=== PATIENT | male | born 1940 | race Caucasian/White ===

== ENCOUNTER 2017-03-01 08:54 | Emergency (ER) | payer OTHER ==
[~2017-03-01] VITALS: Ht 177.8 cm; Wt 83.9 kg
[~2017-03-01 08:54] MED LIST: AUGMENTIN 875875 M1 PO; CRESTOR5 MG; LEVOTHYROXINE0.2 M1; MECLIZINE HCL25 M1 PO; METOPROLOL SUCC25 M1
[2017-03-01 10:52] LABS: HEMATOCRIT 33.7 % (42.0-52.0); HEMOGLOBIN 11.8 gm/dL (14.0-18.0); MCH 30.7 pg (26.0-34.0); MCHC 34.9 g/dL (28.0-37.0); PLATELET COUNT 122 thou/uL (150-400); RBC 3.83 mil/uL (4.50-6.00); RDW 13.3 % (10.5-14.5); WBC 4.1 thou/uL (4.0-11.0)
[2017-03-01 10:54] LABS: MANUAL DIFF YES
[2017-03-01 10:55] LABS: CALCIUM 8.7 mg/dL (8.5-10.1); CREATININE 1.4 mg/dL (0.7-1.3); POTASSIUM 4.2 mmol/L (3.5-5.1)
[2017-03-01 11:17] VITALS: BP 141/78
[2017-03-01 11:23] LABS: ABSOLUTE NEUTROPHILS 2.6 thou/uL (1.4-8.2); ANISOCYTOSIS SLIGHT; TOTAL CELL COUNT 100
== END 2017-03-01 11:57 | disposition home or self-care (01) ==
LOC: ER 08:54
PROVIDERS: Nurse Practitioner
DX: S16.1XXA Strain of muscle, fascia and tendon at neck level, initial encounter (principal); S00.03XA Contusion of scalp, initial encounter; S80.212A Abrasion, left knee, initial encounter; I10 Essential (primary) hypertension; E78.00 Pure hypercholesterolemia, unspecified; I25.2 Old myocardial infarction; Z95.5 Presence of coronary angioplasty implant and graft; Z88.6 Allergy status to analgesic agent; W01.0XXA Fall on same level from slipping, tripping and stumbling without subsequent striking against object, initial encounter; Y93.89 Activity, other specified; Y92.89 Other specified places as the place of occurrence of the external cause; Y99.8 Other external cause status

== ENCOUNTER 2019-08-14 11:22 | Inpatient (IN) | payer OTHER ==
[~2019-08-14] VITALS: Ht 177.8 cm; Wt 93.4 kg
[~2019-08-14 11:22] MED LIST changes: +LEVAQUIN 500 M500 M2 PO; -LEVOTHYROXINE0.2 M1; -METOPROLOL SUCC25 M1; +METOPROLOL SUCC25 M1 PO; +ONDANSETRON HCL4 M2 PO; +SYNTHROID100 MC1 PO
[2019-08-14 11:23] VITALS: BP 131/105
[2019-08-14 11:50] LABS: HEMOGLOBIN 14.1 gm/dL (14.0-18.0); MCH 29.4 pg (26.0-34.0); MCHC 32.8 g/dL (28.0-37.0); MCV 89.7 fL (80.0-100.0); PLATELET COUNT 216 thou/uL (150-400); RBC 4.79 mil/uL (4.50-6.00); RDW 13.2 % (10.5-14.5); WBC 6.3 thou/uL (4.0-11.0)
[2019-08-14 12:01] LABS: ANION GAP 6 mmol/L (7-16); BUN 23 mg/dL (7-18); CALCIUM 9.6 mg/dL (8.5-10.1); CHLORIDE 100 mmol/L (98-107); CO2 29 mmol/L (21-32); CREATININE 1.7 mg/dL (0.7-1.3); GLUCOSE 107 mg/dL (74-106); POTASSIUM 4.3 mmol/L (3.5-5.1); SODIUM 135 mmol/L (136-145)
[2019-08-14 12:02] LABS: APTT 29.4 Seconds (24.5-32.8); INR 1.1; PROTIME 11.5 Seconds (9.3-11.4)
[2019-08-14 12:12] LABS: ALBUMIN 3.9 g/dL (3.4-5.0); SGOT 28 U/L (15-37); SGPT 22 U/L (30-65); TOTAL BILIRUBIN 0.7 mg/dL (<0.1-1.0); TOTAL PROTEIN 8.5 g/dL (6.4-8.2); TROPONIN-I <0.06 ng/mL (<0.06)
[2019-08-14 13:15] LABS: ABSOLUTE NEUTROPHILS 4.8 thou/uL (1.4-8.2); PLATELET ESTIMATE NORMAL
[2019-08-14 14:05] LABS: CHOLESTEROL 183 mg/dL (<200); HDL CHOLESTEROL 37 mg/dL (>40); LDL CHOLESTEROL 122 mg/dL (<100); TC:HDL 4.9 Ratio (Not establshd); TRIGLYCERIDE 122 mg/dL (<150); VLDL 24 mg/dL (<40)
[2019-08-14] MEDS ORDERED: TAMSULOSIN HCL0.4 MG PO (14:19)
[2019-08-14] MEDS ORDERED: NAPROSYN500 MG PO (14:20)
[2019-08-14] MEDS ORDERED: PRAVACHOL40 MG PO (14:21)
--- NOTE | 2019-08-14 15:51 | EKG ---
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1940 Requested By: Sandra Araiza Order Number: [id number] MD: Stevan Camacho Measurements Intervals [place] Rate: 140 P: 0 NV: 81 QRS: -13 QRSD: 90 T: 1 QT: 315 QTc: 481 Interpretive Statements Atrial flutter with 2:1 AV conduction Borderline low voltage, extremity leads Minimal ST depression, inferior leads Borderline prolonged QT interval Compared to ECG 09/29/2017 10:03:28 Atrial flutter has replaced sinus rhythm Electronically Signed On 08-14-2019 15:50:03 CDT by Stevan Camacho [email or web address] <ELECTRONICALLY SIGNED> By: Stevan Camacho MD, FAC 08/14/19 1550 1128 1128 Stevan Camacho MD, [facility] /EPI
[2019-08-14 18:37] VITALS: BP 122/84
[2019-08-14 18:42] VITALS: BP 122/84
[2019-08-14 19:08] VITALS: BP 118/82
[2019-08-14 19:32] VITALS: BP 131/89
[2019-08-14 23:53] VITALS: BP 132/86
[2019-08-15] VITALS (11 sets, daily range): BP systolic 115–138; BP diastolic 65–101
[2019-08-15 04:53] LABS: ANION GAP 8 mmol/L (7-16); BUN 25 mg/dL (7-18); CALCIUM 8.1 mg/dL (8.5-10.1); CHLORIDE 104 mmol/L (98-107); CO2 28 mmol/L (21-32); CREATININE 1.9 mg/dL (0.7-1.3); GLUCOSE 85 mg/dL (74-106); PHOSPHORUS 3.3 mg/dL (2.5-4.9); POTASSIUM 3.7 mmol/L (3.5-5.1); SODIUM 140 mmol/L (136-145); TROPONIN-I <0.06 ng/mL (<0.06)
[2019-08-15 05:02] LABS: HEMATOCRIT 34.9 % (42.0-52.0); MCH 29.4 pg (26.0-34.0); RBC 3.92 mil/uL (4.50-6.00); RDW 13.1 % (10.5-14.5); WBC 5.4 thou/uL (4.0-11.0)
[2019-08-15 05:08] LABS: HEMOGLOBIN 11.5 gm/dL (14.0-18.0)
--- NOTE | 2019-08-15 13:19 | 2DMMODE ---
[facility] [address] [place] [address] 2 D/M-MODE ECHOCARDIOGRAM Name: ANNA TORRES Room #: 211-P ADM IN M.R.#: [id number] Admission: 08/14/19 Attend Phys: Laurie Dalton Discharge: Date of : 38 Report #: [id number] THIS REPORT FOR: cc: FAM - Family physician unknown FAM - Family physician unknown Isai Abreu MD ~ APPROVED REPORT Study performed: 08/15/2019 12:11:50 EXAM: Comprehensive 2D, Doppler, and color-flow Echocardiogram Patient Location: Bedside Room #: 211 Status: routine BSA: 2.02 HR: 73 bpm BP: 148/78 mmHg Rhythm: Atrial Flutter Indications Aortic Valve Disease Congestive Heart Failure Dyspnea CAD Hypertension/HDD 2D Dimensions RVDd: 51.66 mm IVSd: 14.80 (7-11mm) LVOT Diam: 20.04 (18-24mm) LVDd: 39.56 mm PWd: 15.40 (7-11mm) Ascending Ao: 36.51 (22-36mm) LVDs: 27.31 (25-40mm) Aortic Root: 33.96 mm IVC: 27.00 mm Volumes Left Atrial Volume (Systole) Single Plane 4CH: 94.94 mL Single Plane 2CH: 67.81 mL LA ESV Index: 44.00 mL/m2 Aortic Valve AoV Peak Robert.: 4.25 m/s AO Peak Gr.: 72.36 mmHg LVOT Max P.85 mmHg AO Mean Gr.: 44.53 mmHg LVOT Mean P.80 mmHg AO V2 Mean: 3.09 m/s LVOT Max V: 0.98 m/s [facility] [address] [place] [address] 2 D/M-MODE ECHOCARDIOGRAM Name: ANNA TORRES Room #: 211-P [facility] IN ..#: [id number] Admission: 08/14/19 Attend Phys: Laurie Newsome Discharge: Date of : 36 Report #: [id number] AO V2 VTI: 102.63 cm LVOT Mean V: 0.60 m/s AYSHA (VTI): 0.61 cm2 LVOT V1 VTI: 19.90 cm AYSHA Vmax: 0.73 cm2 SV (LVOT): 62.77 mL Mitral Valve MV Peak Gr.: 10.80 mmHg MV Mean Gr.: 4.20 mmHg E/A Ratio: 2.8 MV Decel. Time: 190.43 ms MV E Max Robert.: 1.65 m/s MV A Robert.: 0.60 m/s MV Max Robert.: 1.64 m/s MV Mean Robert.: 0.93 m/s MV VTI: 375.26 mm MVA VTI: 167.26 mm2 MV PHT: 55.22 ms MVA (PHT): 2.63 cm2 IVRT: 44.98 ms Pulmonary Valve PV Peak Robert.: 0.80 m/s PV Peak Gr.: 2.59 mmHg Pulmonary Vein P Vein S: 0.22 m/s P Vein A: 0.11 m/s P Vein D: 0.72 m/s P Vein A Dur.: 65.7 msec P Vein S/D Ratio: 0.31 Tricuspid Valve TR Peak Robert.: 2.53 m/s TR Peak Gr.: 25.68 mmHg PA Pressure: 35.00 mmHg Left Ventricle The left ventricle is normal size. There is normal LV segmental wall motion. Mild concentric left ventricular hypertrophy. The left ventricular systolic function is normal. The left ventricular ejection fraction is within the normal range. LVEF is 55-60%. This study is not technically sufficient to allow evaluation of the LV diastolic function. Right Ventricle Right ventricle is dilated. The right ventricular systolic function is normal. Atria Left atrium is dilated. Right atrium is dilated. [address] [address] 2 D/M-MODE ECHOCARDIOGRAM Name: ANNA TORRES Room #: 211-P [facility] IN .R.#: [id number] Admission: 08/14/19 Attend Phys: Laurie Newsome Discharge: Date of : 38 Report #: [id number] Aortic Valve The aortic valve is normal in structure. Aortic valve is calcified. No aortic regurgitation is present. Severe aortic stenosis. Mitral Valve The mitral valve is normal in structure. There is mitral annular calcification. Mild mitral regurgitation. Mild mitral stenosis. Tricuspid Valve The tricuspid valve is normal in structure. There is mild tricuspid regurgitation. Estimated PAP 35 mmHg. There is mild pulmonary hypertension. Pulmonic Valve The pulmonary valve is normal in structure. There is no pulmonic valvular regurgitation. Great Vessels The aortic root is normal in size. IVC is dilated and collapses <50% with inspiration. Pericardium There is no pericardial effusion. <Conclusion> The left ventricle is normal size. LVEF is 55-60%. Right ventricle is dilated. Left atrium is dilated. Right atrium is dilated. The aortic valve is normal in structure. Aortic valve is calcified. Severe aortic stenosis. The mitral valve is normal in structure. There is mitral annular calcification. Mild mitral regurgitation. Mild mitral stenosis. The tricuspid valve is normal in structure. There is mild tricuspid regurgitation. Estimated PAP 35 mmHg. There [place] [address] 2 D/M-MODE ECHOCARDIOGRAM Name: ANNA TORRES Room #: [facility]-P [facility] IN M.R.#: [id number] Admission: 08/14/19 Attend Phys: Laurie Newsome Discharge: Date of : 36 Report #: [id number] The pulmonary valve is normal in structure. There is no pericardial effusion. <ELECTRONICALLY SIGNED> By: Isai Abreu MD 08/15/191316 16 16 Isai Abreu MD /INF
[2019-08-16] VITALS (9 sets, daily range): BP systolic 129–159; BP diastolic 68–116
[2019-08-16 06:14] LABS: HEMATOCRIT 39.1 % (42.0-52.0); HEMOGLOBIN 12.8 gm/dL (14.0-18.0); MCH 29.1 pg (26.0-34.0); MCHC 32.6 g/dL (28.0-37.0); RBC 4.39 mil/uL (4.50-6.00); RDW 13.1 % (10.5-14.5); WBC 5.9 thou/uL (4.0-11.0)
[2019-08-16 06:27] LABS: ALBUMIN 3.5 g/dL (3.4-5.0); CALCIUM 9.4 mg/dL (8.5-10.1); CREATININE 1.9 mg/dL (0.7-1.3); PHOSPHORUS 3.3 mg/dL (2.5-4.9); POTASSIUM 3.4 mmol/L (3.5-5.1)
[2019-08-17 04:51] VITALS: BP 137/77
[2019-08-17 05:38] LABS: CALCIUM 8.8 mg/dL (8.5-10.1); CREATININE 1.9 mg/dL (0.7-1.3); POTASSIUM 3.4 mmol/L (3.5-5.1)
[2019-08-17 07:20] VITALS: BP 139/85
[2019-08-17 10:50] VITALS: BP 128/82
[2019-08-17 15:50] VITALS: BP 128/82
[2019-08-17 16:30] VITALS: BP 160/91
[2019-08-17 20:05] VITALS: BP 152/84
[2019-08-18] VITALS (9 sets, daily range): BP systolic 90–160; BP diastolic 67–99
[2019-08-18 06:26] LABS: CALCIUM 8.5 mg/dL (8.5-10.1); CREATININE 1.8 mg/dL (0.7-1.3); POTASSIUM 3.8 mmol/L (3.5-5.1)
[2019-08-19 04:10] VITALS: BP 150/70
[2019-08-19 05:34] LABS: CALCIUM 8.9 mg/dL (8.5-10.1); CREATININE 1.5 mg/dL (0.7-1.3); POTASSIUM 3.9 mmol/L (3.5-5.1)
[2019-08-19 07:50] VITALS: BP 154/68
[2019-08-19 10:30] VITALS: BP 117/61
[2019-08-19] MEDS ORDERED: CEFUROXIME500 MG PO (12:27)
[2019-08-19] MEDS ORDERED: PEPCID AC10 MG PO (12:27)
[2019-08-19] MEDS ORDERED: METOPROLOL SUCC25 M1 PO (12:27)
[2019-08-19] MEDS ORDERED: BENICAR20 MG PO (12:27)
[2019-08-19] MEDS ORDERED: ELIQUIS2.5 MG PO (12:27)
[2019-08-19] MEDS ORDERED: ACETAMINOPHEN325 M1 PO (12:27)
[2019-08-19] MEDS ORDERED: VITAMIN D325 MCG PO (12:27)
[2019-08-19] MEDS ORDERED: B-12500 MCG PO (12:27)
== END 2019-08-19 15:14 | disposition home health service (06) | DRG 291 ==
LOC: ER 11:22 → 2N 13:44 → EROBS 13:44 → 2N 19:11
PROVIDERS: Nurse Practitioner; Physician Assistant; ADMIT Hospitalist
DX: I13.0 Hypertensive heart and chronic kidney disease with heart failure and stage 1 through stage 4 chronic kidney disease, or unspecified chronic kidney disease (principal); J18.9 Pneumonia, unspecified organism; I50.33 Acute on chronic diastolic (congestive) heart failure; G92 Toxic encephalopathy; I48.92 Unspecified atrial flutter; N18.9 Chronic kidney disease, unspecified; E78.00 Pure hypercholesterolemia, unspecified; I25.5 Ischemic cardiomyopathy; M10.9 Gout, unspecified; I25.10 Atherosclerotic heart disease of native coronary artery without angina pectoris; I35.0 Nonrheumatic aortic (valve) stenosis; N40.0 Benign prostatic hyperplasia without lower urinary tract symptoms; G47.00 Insomnia, unspecified; K59.00 Constipation, unspecified; E87.6 Hypokalemia; E53.8 Deficiency of other specified B group vitamins; E55.9 Vitamin D deficiency, unspecified; F32.9 Major depressive disorder, single episode, unspecified; I48.91 Unspecified atrial fibrillation; I25.2 Old myocardial infarction; Z95.5 Presence of coronary angioplasty implant and graft; Z88.6 Allergy status to analgesic agent; Z79.899 Other long term (current) drug therapy
CPT/HCPCS: 10081

== ENCOUNTER → 2019-09-04 | Outpatient (CLI) | payer OTHER ==
[~2019-09-04] MED LIST changes: +ACETAMINOPHEN325 M1 PO; +ALLOPURINOL 10100 M2 PO; +AMIODARONE HCL400 MG PO; +ASA81BEC PO; +B-12500 MCG PO; +BENICAR20 MG PO; +CEFUROXIME500 MG PO; +ELIQUIS2.5 MG PO; +FLOMAX0.4 MG PO; +LEVO-T100 MCG PO; +NAPROSYN500 MG PO; +NAPROXEN DELAY500 M1 PO; +NOXIFOL-D32500 UNIT PO; +PACERONE200 MG PO; +PEPCID AC10 MG PO; +PRAVACHOL40 MG PO; +TAMSULOSIN HCL0.4 MG PO; +TOPROL XL50 MG PO; +VITAMIN B-121000 MC2; +VITAMIN D325 MCG PO
== END ==
LOC: SJCVC 10:07
PROVIDERS: ATTEND Internal Medicine
DX: I48.92 Unspecified atrial flutter (principal); I44.30 Unspecified atrioventricular block; R94.31 Abnormal electrocardiogram [ECG] [EKG]; I25.10 Atherosclerotic heart disease of native coronary artery without angina pectoris; I48.0 Paroxysmal atrial fibrillation; I35.0 Nonrheumatic aortic (valve) stenosis; E78.5 Hyperlipidemia, unspecified; Z79.899 Other long term (current) drug therapy

== ENCOUNTER → 2019-09-25 | Outpatient (CLI) | payer OTHER ==
[~2019-09-25] MED LIST changes: -ALLOPURINOL 10100 M2 PO; -AMIODARONE HCL400 MG PO; -ASA81BEC PO; -FLOMAX0.4 MG PO; -LEVO-T100 MCG PO; -NAPROXEN DELAY500 M1 PO; -NOXIFOL-D32500 UNIT PO; -PACERONE200 MG PO; -TOPROL XL50 MG PO; -VITAMIN B-121000 MC2
== END ==
LOC: SJCVCIMAG 07:49
DX: I48.0 Paroxysmal atrial fibrillation (principal); I25.10 Atherosclerotic heart disease of native coronary artery without angina pectoris; I35.0 Nonrheumatic aortic (valve) stenosis; E78.5 Hyperlipidemia, unspecified; Z79.899 Other long term (current) drug therapy

== ENCOUNTER → 2019-10-25 | Outpatient (CLI) | payer OTHER ==
[~2019-10-25] MED LIST changes: +ALLOPURINOL 10100 M2 PO; +AMIODARONE HCL400 MG PO; +ASA81BEC PO; +FLOMAX0.4 MG PO; +LEVO-T100 MCG PO; +NAPROXEN DELAY500 M1 PO; +NOXIFOL-D32500 UNIT PO; +PACERONE200 MG PO; +TOPROL XL50 MG PO; +VITAMIN B-121000 MC2
== END ==
LOC: SJCVC 10:17
PROVIDERS: ATTEND Internal Medicine
DX: I48.0 Paroxysmal atrial fibrillation (principal); I35.0 Nonrheumatic aortic (valve) stenosis; I25.10 Atherosclerotic heart disease of native coronary artery without angina pectoris; E78.5 Hyperlipidemia, unspecified; Z95.5 Presence of coronary angioplasty implant and graft; Z79.899 Other long term (current) drug therapy

== ENCOUNTER → 2019-10-30 | Outpatient (CLI) | payer OTHER ==
[~2019-10-30] VITALS: Ht 177.8 cm; Wt 84.4 kg
[~2019-10-30] MED LIST changes: -PACERONE200 MG PO
[2019-10-30 10:28] LABS: HEMATOCRIT 40.2 % (42.0-52.0); HEMOGLOBIN 13.4 gm/dL (14.0-18.0); MCH 29.8 pg (26.0-34.0); MCHC 33.3 g/dL (28.0-37.0); MCV 89.5 fL (80.0-100.0); RBC 4.49 mil/uL (4.50-6.00); RDW 14.7 % (10.5-14.5); WBC 5.7 thou/uL (4.0-11.0)
[2019-10-30 10:35] LABS: CALCIUM 8.5 mg/dL (8.5-10.1); CREATININE 2.1 mg/dL (0.7-1.3); POTASSIUM 4.4 mmol/L (3.5-5.1)
[2019-10-30 10:40] VITALS: BP 150/105
--- NOTE | 2019-10-30 11:46 | EKG ---
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
--- NOTE | 2019-11-01 09:15 | CATHLAB ---
[facility] [place] [address] INVASIVE PROCEDURE REPORT Name: ANNA TORRES Room #: REG ANDRES Diane#: [id number] Admission: 10/30/19 Attend Phys: Isai Abreu Discharge: Date of : 38 Report #: [id number] THIS REPORT FOR: cc: Rishabh Delgado MD, Harry MD Lammoglia, Francisco J. MD ~ APPROVED REPORT Study performed: 10/30/2019 12:46:27 Patient Details Patient Status: Out-Patient Room #: The patient is a 79 year-old male Event Personnel Isai Abreu Electronics Test Engineer, Aston Lambert RN RN, Corrine Pal, Lorrie Henderson RTR Scrub Procedures Performed Art Access - R femoral artery* 00341 Initial Mod Sed Same Phys/QHP Gr5y 982092 Coronary Angiography Only [id number] CORANG Hemostasis with Manual pressure, supervision of conscious sedation Indication Dyspnea, Valvular heart disease, Pre-op clearance Procedure Narrative The patient was brought electively to the Cardiac Catheterization Laboratory and was prepped and draped in a sterile manner. The Right Groin^ was infiltrated with 1% Lidocaine subcutaneous anesthesia. A PINNACLE 4FR Sheath #[id number] sheath was inserted into the RFA^. Coronary angiography was performed using coronary diagnostic catheters. The right coronary system was accessed and visualized with a JR 4 catheter. The left coronary system was accessed and visualized with a JL 5 catheter. Hemostasis was obtained with manual pressure following sheath removal without any complications. The patient tolerated the procedure well and there were no complications associated with the procedure. There was no hematoma. Intraoperative Conscious Sedation Sedation start time: 12:57 Case end Time: 13:24 Versed 2 mg [facility] [address] [place] [address] INVASIVE PROCEDURE REPORT Name: ANNA TORRES Room #: REG [facility]#: [id number] Admission: 10/30/19 Attend Phys: Isai Cardozo Discharge: Date of : 38 Report #: [id number] Fluoro Time: 5.40 minutes Dose: DAP 7259.00 cGycm2 1176 mGy Contrast Type and Amount: Omnipaque 55 ml Coronary Angiography The patient's coronary anatomy is right dominant. Diagnostic Cath Left Main Normal origin and small to moderate caliber vessel bifurcates left anterior descending left circumflex. It is free of high-grade disease. There is evidence of mild epicardial coronary artery calcification LAD Small caliber type II vessel which has evidence of a prior stenting in his mid portion. Proximal to this there is irregularities that are moderate. Beyond the stent the vessel narrows and has only mild to moderate irregularities as it courses to the apex is a smaller caliber vessel and terminates at the apex and the distal portion of the LAD stent there is in-stent restenosis of greater than 90%. Diagonal 1 Small caliber vessel coursing on the anterolateral wall at the origin has a 50 to 60% lesion. In its midportion there is a high-grade greater than 80 to 90% lesion noted and then the vessel reconstitutes is a less than 5 mm diameter vessel Circumflex Large-caliber nondominant vessel which proximally has irregularities of less than 20%. And a stent is noted in the distal portion of the stent there is a lesion present at the least 60% and a napkin ring morphology the vessel and gives rise to marginal branches and terminates as a small posterior wall branch after giving rise to a moderate caliber posterior wall marginal branch. This has proximal irregularities less than 50% and then reconstitutes without high-grade lesion it may function as a co-PDA OM1 Small caliber vessel with moderate to significant proximal lesions. The vessel is less than 1 mm in diameter OM2 Moderate caliber vessel with proximal irregularities present of approximately 60 to 70%. The vessel continues on along the lateral aspect of the heart with only mild plaquing noted OM3 Moderate caliber posterior wall branch with proximal moderate irregularities and then mild luminal plaquing as it courses on the posterior lateral wall Right Coronary Moderate caliber vessel of normal origin courses in the AV groove giving rise to this are a and RV branches. Did not continue to the crux of the heart. Prior to this there is 2 regions of plaquing which appears to be between 50 and 60%. At the crux of the heart gives rise to processing artery which is small and free of [facility] [address] [place] [address] INVASIVE PROCEDURE REPORT Name: TORRESANNA Room #: REG COBY Contreras#: [id number] Admission: 10/30/19 Attend Phys: Isai Cardozo Discharge: Date of : 38 Report #: [id number] high-grade disease R PDA Small caliber vessel without significant high-grade lesions Left Ventriculography Left Ventriculography was not performed. Hemodynamics The aortic pressure is 176/108 mmHg with a mean of 137 mmHg. Conclusion 1. Coronary artery disease status post percutaneous revascularization with restenosis and progression of [place] disease Recommendations Valve Surgery CABG We will have the patient evaluated by thoracic surgery to determine whether open aortic valve replacement and grafting versus percutaneous revascularization of the coronaries and percutaneous aortic valve replacement would be most appropriate for this individual <ELECTRONICALLY SIGNED> By: Isai Abreu MD 11/01/19912 2 2 Isai Abreu MD /INF
== END | disposition home or self-care (01) ==
LOC: CATH 09:10
PROVIDERS: Internal Medicine
DX: R06.00 Dyspnea, unspecified (principal); I25.10 Atherosclerotic heart disease of native coronary artery without angina pectoris; I10 Essential (primary) hypertension; I25.2 Old myocardial infarction; I25.5 Ischemic cardiomyopathy; E78.00 Pure hypercholesterolemia, unspecified; M10.9 Gout, unspecified; I48.91 Unspecified atrial fibrillation; Z98.890 Other specified postprocedural states; Z79.899 Other long term (current) drug therapy; Z79.01 Long term (current) use of anticoagulants

== ENCOUNTER 2019-11-20 13:35 | Emergency (ER) | payer OTHER ==
[~2019-11-20] VITALS: Ht 177.8 cm; Wt 81.7 kg
[2019-11-20 14:17] LABS: HEMATOCRIT 35.8 % (42.0-52.0); HEMOGLOBIN 12.1 gm/dL (14.0-18.0); MCH 30.5 pg (26.0-34.0); MCHC 33.9 g/dL (28.0-37.0); MCV 90.2 fL (80.0-100.0); PLATELET COUNT 138 thou/uL (150-400); RBC 3.97 mil/uL (4.50-6.00); RDW 14.7 % (10.5-14.5); WBC 5.2 thou/uL (4.0-11.0)
[2019-11-20 14:24] LABS: CALCIUM 8.5 mg/dL (8.5-10.1); CREATININE 2.3 mg/dL (0.7-1.3); POTASSIUM 4.4 mmol/L (3.5-5.1)
[2019-11-20 14:42] LABS: ABSOLUTE NEUTROPHILS 3.4 thou/uL (1.4-8.2)
[2019-11-20 14:43] LABS: ANISOCYTOSIS 1+; HYPOCHROMASIA SLIGHT
[2019-11-20 15:23] LABS: URINE BILIRUBIN NEGATIVE (Negative); URINE BLOOD NEGATIVE (Negative); URINE CLARITY CLEAR; URINE COLOR YELLOW; URINE GLUCOSE-RANDOM* NEGATIVE (Negative); URINE KETONES NEGATIVE (Negative); URINE LEUKOCYTES-REFLEX NEGATIVE (Negative); URINE NITRITE-REFLEX NEGATIVE (Negative); URINE PROTEIN (DIPSTICK) NEGATIVE (Negative); URINE UROBILINOGEN 0.2 E.U./dl (0.2-1.0)
[2019-11-20] MEDS ORDERED: PACERONE200 MG PO (17:05)
[2019-11-20 17:31] VITALS: BP 146/96
--- NOTE | 2019-11-22 07:17 | EKG ---
[facility] [place] [address] ELECTROCARDIOGRAM REPORT Name: ANNA TORRES Room #: DEP [facility]..#: [id number] Admission: 11/20/19 Attend Phys: Discharge: 11/20/19 Date of : 38 Report #: [id number] THIS REPORT FOR: cc: Rishabh Delgado MD, Harry MD Lundgren,Stevan Borges MD [facility] ~ THIS REPORT FOR: //name// [facility] ED Test Date: 2019-11-20 Test Time: 13:48:48 Pat Name: ANNA TORRES Department: Room: Gender: Ophthalmic Nurse: [facility] : 1940 Requested By: Jus Garcia Order Number: [id number] MD: Stevan Camacho Measurements Intervals [place] Rate: 95 P: HI: QRS: 2 QRSD: 96 T: 32 QT: 411 QTc: 517 Interpretive Statements Accelerated junctional rhythm Nonspecific ST segment abnormality Prolonged QT interval Compared to ECG 10/30/2019 10:22:24 Accelerated junctional rhythm now present Electronically Signed On 11-22-2019 7:16:24 CDT by Stevan Camacho [email or web address] <ELECTRONICALLY SIGNED> By: Stevan Camacho MD, FAC 11/22/19 0716 1348 1348 Stevan Camacho MD, [facility] /EPI
== END 2019-11-20 17:31 | disposition home or self-care (01) ==
LOC: ER 13:35
PROVIDERS: Emergency Medicine
DX: I35.0 Nonrheumatic aortic (valve) stenosis (principal); R55 Syncope and collapse; I48.91 Unspecified atrial fibrillation; I25.2 Old myocardial infarction; I10 Essential (primary) hypertension; E78.00 Pure hypercholesterolemia, unspecified; Z95.5 Presence of coronary angioplasty implant and graft; Z79.899 Other long term (current) drug therapy; Z79.82 Long term (current) use of aspirin; Z88.6 Allergy status to analgesic agent

== ENCOUNTER → 2020-06-03 | Outpatient (CLI) | payer OTHER ==
[~2020-06-03] MED LIST changes: +PACERONE200 MG PO
== END ==
LOC: SJCVC 13:33
PROVIDERS: ATTEND Internal Medicine
DX: I48.0 Paroxysmal atrial fibrillation (principal); R94.31 Abnormal electrocardiogram [ECG] [EKG]; I25.10 Atherosclerotic heart disease of native coronary artery without angina pectoris; I35.0 Nonrheumatic aortic (valve) stenosis; D50.9 Iron deficiency anemia, unspecified; E78.5 Hyperlipidemia, unspecified; R63.4 Abnormal weight loss; N28.9 Disorder of kidney and ureter, unspecified; I11.0 Hypertensive heart disease with heart failure; I50.9 Heart failure, unspecified; Z79.899 Other long term (current) drug therapy

== ENCOUNTER 2020-07-15 17:12 | Inpatient (IN) | payer OTHER ==
[~2020-07-15] VITALS: Ht 177.8 cm; Wt 70.0 kg
--- NOTE | ~2020-07-15 | HC ---
[facility] [place] [address] CONSULTATION Name: ANNA TORRES Room #: 461-P ADM IN M.R.#: [id number] Admission: 07/15/20 Attend Phys: Lakhwinder Vargas MD Discharge: Date of : 38 Report #: [id number] THIS REPORT FOR: cc: Nando De Santiago K. Steven DO Wright, Andrew D. MD ~ DATE OF SERVICE: 07/20/2020 CHIEF COMPLAINT: Urinary retention. HISTORY OF PRESENT ILLNESS: This is a gentleman who was admitted to the hospital on 07/15/2020 with a change in baseline mental status, he was admitted for exacerbations of diastolic heart failure. He has been managed with Cardiology and Nephrology and it is thought based on his elevation of his creatinine that there is possibility of bladder outlet obstruction. His creatinine when he was admitted was 2.8, it reached to a peak of 3.7 and then it has come back to 3.6. A renal sonogram showed no evidence of any hydronephrosis, but there was about 700 mL in his bladder. He had a Shah catheter placed and drained 800 mL. It was noted at the time that he was not complaining of any voiding issues and has never seen a urologist per his history. He denies any frequency, urgency, nocturia, dysuria, hematuria or kidney stones previously and not been on any medications from Urology. It is of note that he has been on Flomax here in the hospital. PAST MEDICAL HISTORY: Significant for aortic stenosis, status post TAVR, atrial flutter, congestive heart failure, anemia. ALLERGIES: No known drug allergies. MEDICATIONS: At home, atorvastatin, Eliquis, levothyroxine, Benicar, tamsulosin, metoprolol, aspirin and amiodarone. REVIEW OF SYSTEMS: As per HPI. PHYSICAL EXAMINATION: GENERAL: He is afebrile. VITAL SIGNS: Stable. SKIN: No rash or jaundice. NEUROLOGIC: Normal affect and orientation. HEENT: Mucous membranes are moist. Sclerae are anicteric. NECK: Supple. CHEST: Clear. HEART: Regular. [facility] [address] [place] [address] CONSULTATION Name: ANNA TORRES Room #: 461-P ADM IN M.R.#: [id number] Admission: 07/15/20 Attend Phys: Lakhwinder Vargas MD Discharge: Date of : 38 Report #: [id number] ABDOMEN: Soft. EXTREMITIES: No edema. Penis is without swelling. Shah catheter draining clear urine. RECTAL: Declined. LABORATORY DATA: White blood cell count is 6.2 thousand, hemoglobin is 7000, hematocrit 21,000 and platelets of 134. BUN is 65, creatinine is down to 3.6. Renal sonogram shows normal size kidneys, a large cyst in the left kidney of 8 cm, a large postvoid residual of about 700 mL. No hydronephrosis was seen. ASSESSMENT AND PLAN: Urinary retention, it is noted that he was asymptomatic at that time, drained about 800 mL. His urine output has been good since he is drained, but his creatinine will be monitored to see if this elevation of his residual had anything to do with his renal insufficiency. It was noted that the catheter was a little bit hard to get in. He may have some bladder outlet obstruction from BPH as well. I have recommended that we increase his Flomax to b.i.d. and likely have a voiding trial in the next week. We will have him follow up at one of our offices in the [facility] area. If his creatinine does not come down, we can possibly do a voiding trial while he is still in the hospital. We will have our physician's web assistant follow up with him on Wednesday to follow his creatinine levels. Questions all answered. By: 1806 1825 Woody Riggs MD /nt
[2020-07-15 17:21] VITALS: BP 189/103
[2020-07-15 18:02] LABS: ABSOLUTE NEUTROPHILS 5.1 thou/uL (1.4-8.2); BASOPHILS 0.7 % (0.0-2.0); EOSINOPHILS 2.8 % (0.0-3.0); HEMATOCRIT 25.6 % (42.0-52.0); HEMOGLOBIN 8.3 gm/dL (14.0-18.0); LYMPHOCYTES 7.4 % (24.0-44.0); MCH 30.9 pg (26.0-34.0); MCHC 32.6 g/dL (28.0-37.0); MCV 94.7 fL (80.0-100.0); MONOCYTES 12.9 % (1.0-8.0); PLATELET COUNT 217 thou/uL (150-400); POLYS 76.2 % (36.0-66.0); RDW 15.2 % (10.5-14.5); WBC 6.7 thou/uL (4.0-11.0)
[2020-07-15 18:05] LABS: ANION GAP 5 mmol/L (7-16); BUN 43 mg/dL (7-18); CALCIUM 8.7 mg/dL (8.5-10.1); CHLORIDE 107 mmol/L (98-107); CO2 24 mmol/L (21-32); CREATININE 2.8 mg/dL (0.7-1.3); GLUCOSE 109 mg/dL (74-106); POTASSIUM 4.5 mmol/L (3.5-5.1); SODIUM 136 mmol/L (136-145)
[2020-07-15 18:15] LABS: ALBUMIN 2.9 g/dL (3.4-5.0); SGOT 33 U/L (15-37); SGPT 29 U/L (16-63); TOTAL BILIRUBIN 0.8 mg/dL (0.2-1.0); TOTAL PROTEIN 7.3 g/dL (6.4-8.2); TROPONIN-I <0.06 ng/mL (<0.06)
[2020-07-15 21:06] VITALS: BP 160/92
[2020-07-15] MEDS ORDERED: LIPITOR 40 MG T40 M1 PO (23:00)
[2020-07-15 23:32] VITALS: BP 149/80
[2020-07-16] VITALS (7 sets, daily range): BP systolic 128–188; BP diastolic 58–123
--- NOTE | 2020-07-16 05:22 | NUR ---
Pt admitted to RM 461 @ about 0030. ALert and oriented. Confused, but able to understand straight forward information. Forgetful. Did know he was at [facility] but was voicing it like he just "moved into this place". Pt is very pleasant and cooperative. Lives in an apartment with his . Has home health services. Pt voids via urinal. Adm hx and assessment as documented. 1750ml Fluid restriction in place. Hx of falls. Fall precaution in place. Call light within reach. Pt sleeping well without complaints at this time. Will continue to monitor.
[2020-07-16 05:23] LABS: % SATURATION 23 % (20-39); IRON 42 ug/dL (65-175); TIBC 182 ug/dL (250-450)
[2020-07-16 05:24] LABS: HEMATOCRIT 23.1 % (42.0-52.0); HEMOGLOBIN 7.6 gm/dL (14.0-18.0); MCH 31.2 pg (26.0-34.0); MCHC 33.1 g/dL (28.0-37.0); MCV 94.4 fL (80.0-100.0); RBC 2.44 mil/uL (4.50-6.00); WBC 6.5 thou/uL (4.0-11.0)
[2020-07-16 05:33] LABS: CALCIUM 8.5 mg/dL (8.5-10.1)
[2020-07-16 06:16] LABS: FOLIC ACID 15.3 ng/mL (8.6-58.9)
--- NOTE | 2020-07-16 06:48 | EKG ---
[address] [address] ELECTROCARDIOGRAM REPORT Name: ANNA TORRES Room #: 461-P ADM IN M.R.#: [id number] Admission: 07/15/20 Attend Phys: Woody Austin MD Discharge: Date of : 38 Report #: [id number] [facility] ED Test Date: 2020-07-15 Test Time: 17:35:07 Pat Name: ANNA TORRES Department: Room: 46 Gender: M Environmental Inspector: RANJANA : 1940 Requested By: Nam Carbajal Order Number: [id number] MD: Mark Downs Measurements Intervals [place] Rate: 99 P: 0 MT: 49 QRS: -4 QRSD: 96 T: 7 QT: 383 QTc: 492 Interpretive Statements Sinus tachycardia Borderline low voltage, extremity leads Minimal ST depression, lateral leads Borderline prolonged QT interval Compared to ECG 11/20/2019 13:48:48 Accelerated junctional rhythm no longer present ST (T wave) deviation still present Electronically Signed On 07-16-2020 6:48:39 PANEL SAW OPERATOR by Mark Downs [email or web address] <ELECTRONICALLY SIGNED> By: Mark Downs MD, FACC 07/16/20 0648 1735 1735 Mark Downs MD, FAC /EPI
--- NOTE | 2020-07-16 10:50 | 2DMMODE ---
[facility] [place] [address] 2 D/M-MODE ECHOCARDIOGRAM Name: ANNA TORRES Room #: 461-P ADM IN M.R.#: [id number] Admission: 07/15/20 Attend Phys: Woody Austin MD Discharge: Date of : 38 Report #: [id number] THIS REPORT FOR: cc: Nando De Santiago K. Steven DO Lammoglia, Francisco J. MD ~ APPROVED REPORT Study performed: 07/16/2020 08:25:59 EXAM: Comprehensive 2D, Doppler, and color-flow Echocardiogram Patient Location: Bedside Room #: 461 Status: routine BSA: 1.90 HR: 64 bpm BP: 154/98 mmHg Rhythm: NSR Other Information Study Quality: Good Indications Aortic Valve Disease Congestive Heart Failure 2D Dimensions RVDd: 47.25 mm IVSd: 10.89 (7-11mm) LVOT Diam: 18.95 (18-24mm) LVDd: 46.52 mm PWd: 11.03 (7-11mm) Ascending Ao: 28.25 (22-36mm) LVDs: 30.48 (25-40mm) Aortic Root: 27.27 mm IVC: 21.00 mm Volumes Left Atrial Volume (Systole) Single Plane 4CH: 76.42 mL Single Plane 2CH: 67.29 mL LA ESV Index: 40.00 mL/m2 Aortic Valve AoV Peak Robert.: 1.71 m/s AO Peak Gr.: 11.70 mmHg LVOT Max P.39 mmHg LVOT Max V: 0.77 m/s AYSHA Vmax: 1.[address] [facility] [address] [place] [address] 2 D/M-MODE ECHOCARDIOGRAM Name: ANNA TORRES Room #: 461-P ADM IN .R.#: [id number] Admission: 07/15/20 Attend Phys: Woody Austin MD Discharge: Date of : 38 Report #: [id number] Pulmonary Valve PV Peak Robert.: 0.80 m/s PV Peak Gr.: 2.58 mmHg Tricuspid Valve TR Peak Robert.: 2.75 m/s TR Peak Gr.: 30.26 mmHg PA Pressure: 40.00 mmHg Left Ventricle The left ventricle is normal size. There is normal LV segmental wall motion. There is normal left ventricular wall thickness. The left ventricular systolic function is normal. The left ventricular ejection fraction is within the normal range. LVEF is 60-65%. This study is not technically sufficient to allow evaluation of the LV diastolic function. Right Ventricle Right ventricle is dilated. The right ventricular systolic function is normal. Atria Left atrium is dilated. Right atrium is dilated. Aortic Valve Prosthetic aortic valve is normal in appearance. Mitral Valve The mitral valve is normal in structure. There is mitral annular calcification. Mild mitral regurgitation. No evidence of mitral valve stenosis. Tricuspid Valve The tricuspid valve is normal in structure. There is mild tricuspid regurgitation. Estimated PAP 40 mmHg. There is mild-moderate pulmonary hypertension. Pulmonic Valve The pulmonary valve is normal in structure. There is no pulmonic valvular regurgitation. Great Vessels The aortic root is normal in size. IVC is dilated and collapses <50% with inspiration. Pericardium [facility] [address] [place] [address] 2 D/M-MODE ECHOCARDIOGRAM Name: ANNA TORRES Room #[facility]R.[facility] [id number] Admission: 07/15/20 Attend Phys: Woody Austin MD Discharge: Date of : 36 Report #: [id number] There is no pericardial effusion. <Conclusion> The left ventricle is normal size. LVEF is 60-65%. Right ventricle is dilated. Left atrium is dilated. Right atrium is dilated. Prosthetic aortic valve is normal in appearance. The mitral valve is normal in structure. There is focal echodensities consistent with mitral annular calcification. Mild mitral regurgitation. The tricuspid valve is normal in structure. There is mild tricuspid regurgitation. Estimated PAP 40 mmHg. There is mild-moderate pulmonary hypertension. There is no pericardial effusion. <ELECTRONICALLY SIGNED> By: Isai Abreu MD 07/16/20 1050 105 1050 Isai Aberu MD /LUCIE
--- NOTE | 2020-07-16 15:22 | NUR ---
PT ADMITTED RELATED TO CHF, ANEMIA. CM REVIEWED CHART AND SPOKE WITH CARE TEAM. CM CALLED AND SPOKE WITH PT AT BEDSIDE THIS DAY. PT APPEARED TO BE A&O X4 . CM ROLE INTRODCUED. PT INDICATED HE RESIDES IN AN APARTMENT WITH HIS SPOUSE WITH NO STEPS TO ENTER AND NO STEPS INSIDE. ELEVATOR ACCESS TO 3RD FLOOR APARTMENT. 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 PT INDICATED HE HAD BEEN ON SERVICE WITH [facility] ELECTRON BEAM MACHINE WELDER SETTER. CM CALLED AND CONFIRMED THE ABOVE WITH PT'S SPOUSE DEXTER. SHE INDICATED SHE HAD ASSISTED PT WITH SOME ADLS ELECTRON BEAM MACHINE WELDER SETTER. THEY BOTH INDICATED THAT PLAN IS FOR PT TO RETURN HOME AND RESUME HH SERVICES UPON DC. CLINICAL UPDATE TO BE SENT TO INTERIM. CM TO FOLLOW INDICATED WITH DC PLANNING. CARDIOLOGY AND NEPHROLOGY. CM TO FOLLOW INDICATED WITH DC PLANNING.
--- NOTE | 2020-07-16 15:42 | NUR ---
Assumed pt care this am, BP elevated in the am, lasix given strict I and O monitoring being done. Pt is confused and unsteady on his gait, prefers to use the urinal but needs to get up when doing so. BLE +2 edema noted. POC followed, with no signs or verbalizations of distress. Diet and medications are tolerated well.
--- NOTE | 2020-07-17 03:57 | NUR ---
PT IS A/O X2. UP WITH SBA TO THE BSC. ROOM AIR. USES A URINAL AT THE BEDSIDE. IS IMPULSIVE. IN ROOM NEAR THE NURSES STATION WITH FREQUENT CHECKS. REMAINS ON FLUID RESTRICTION. FALL PRECAUTIONS IN PLACE. WILL CONTINUE TO MONITOR.
[2020-07-17 05:59] LABS: HEMOGLOBIN 7.3 gm/dL (14.0-18.0); MCH 30.9 pg (26.0-34.0); MCV 93.6 fL (80.0-100.0); RBC 2.35 mil/uL (4.50-6.00); RDW 14.8 % (10.5-14.5); WBC 6.5 thou/uL (4.0-11.0)
[2020-07-17 06:33] LABS: CALCIUM 8.7 mg/dL (8.5-10.1); CREATININE 3.6 mg/dL (0.7-1.3); POTASSIUM 4.5 mmol/L (3.5-5.1)
[2020-07-17 07:21] VITALS: BP 181/112
[2020-07-17 10:06] VITALS: BP 148/91
--- NOTE | 2020-07-17 15:17 | NUR ---
ASSUMED CARE OF PATIENT AT SHIFT CHNAGE. ASSESSMENT CHARTED. MEDICATIONS ADMINISTERED PER EMAR. BP STILL ELEVATED. MONITORING FOR IMPROVEMENT POST MEDICATION CHANGES. PATIENT USING URINAL. CONFUSED AT TIMES; NEAR NURSES STATION. DENIED PAIN AND VOICED NO FURTHER NEEDS AT TIME OF ASSESSMENT. WILL CONTINUE TO MONITOR THIS PATIENT
--- NOTE | 2020-07-17 15:51 | NUR ---
PT HAD BEEN RECEIVING IV LASIX HELD PER NEPHROLOGY. CM FOLLOWING REGARDING DC PLANNING NEEDS.
[2020-07-17 16:25] VITALS: BP 167/102
[2020-07-17 19:55] VITALS: BP 152/90
[2020-07-17 23:36] LABS: URINE BILIRUBIN NEGATIVE (Negative); URINE BLOOD TRACE (Negative); URINE CLARITY CLEAR; URINE COLOR YELLOW; URINE GLUCOSE-RANDOM* NEGATIVE (Negative); URINE KETONES NEGATIVE (Negative); URINE LEUKOCYTES 2+ (Negative); URINE NITRITE NEGATIVE (Negative); URINE PROTEIN (DIPSTICK) TRACE (Negative); URINE SPECIFIC GRAVITY 1.015 (1.005-1.035)
[2020-07-18 00:11] LABS: CASTS None Seen /LPF (None Seen); MUCUS None Seen strn/LPF (None Seen); SQUAMOUS None Seen /LPF (0-3)
[2020-07-18 00:12] LABS: CRYSTALS None Seen /LPF (None Seen); URINE RBC 0-2 Rare /HPF (0-2); URINE WBC 6-15 Few /HPF (0-5)
[2020-07-18 01:02] LABS: PROT/CREAT RATIO 0.7; URINE CREATININE-RANDOM* 58.8 mg/dL; URINE PROTEIN-RANDOM* 41.4 mg/dL (<11.9)
--- NOTE | 2020-07-18 01:51 | NUR ---
PT IS A/O X3 WITH FORGETFULLNESS. PT IS UP WITH ASSISTANCE X1 TO THE CHAIR OR BSC. CAN BE IMPULSIVE AT TIMES. FALL PRECAUTIONS IMPLEMENTED AND PT IS IN ROOM NEAR NURSES STATION. PT IS ON ROOM AIR. SA ON THE MONITOR. CAN BE TACHY WITH EXERTION. USES A URINAL AT THE BEDSIDE WITH ASSISTANCE TO STAND. PT PLEASANT AND COOPERATIVE. DENIES ANY C/O PAIN OR DISCOMFORT. UA COLLECTED AND TAKEN TO LAB PER ORDERS. CALL LIGHT IS WITHIN REACH. WILL CONTINUE TO MONTIOR.
[2020-07-18 06:17] LABS: ALBUMIN 2.7 g/dL (3.4-5.0); CALCIUM 8.3 mg/dL (8.5-10.1); CREATININE 3.3 mg/dL (0.7-1.3); PHOSPHORUS 4.3 mg/dL (2.6-4.7)
[2020-07-18 08:03] VITALS: BP 164/100
[2020-07-18 11:00] LABS: HEMATOCRIT 24.4 % (42.0-52.0); MCH 30.7 pg (26.0-34.0); MCHC 32.7 g/dL (28.0-37.0); MCV 93.9 fL (80.0-100.0); RBC 2.59 mil/uL (4.50-6.00); WBC 7.4 thou/uL (4.0-11.0)
[2020-07-18 11:18] LABS: CALCIUM 8.8 mg/dL (8.5-10.1); CREATININE 3.7 mg/dL (0.7-1.3); MAGNESIUM 2.2 mg/dL (1.8-2.4)
--- NOTE | 2020-07-18 15:14 | NUR ---
CARE TEAM INDICATED THAT PT IS PROGRESSING TOWARD GOAL OF DISHCARGE. CARE TEAM MONITORIGN CR WHICH IS TRENDING DOWN. IT IS ANTICPATED THAT PT WILL BE SAFE TO RETURN HOME WITH SPOUSE AND RESUME HH SERVICES WITH [facility]. CM TO FOLLOW INDICATED WITH DC PLANNING.
[2020-07-18 18:04] VITALS: BP 132/84
[2020-07-18 19:58] VITALS: BP 113/50
--- NOTE | 2020-07-18 20:34 | NUR ---
Assumed pt care this am, bp elevated medications given. at the bedside will be back to talk to the renal MD. FAll precautions in place, tried to use the urinal but needs to be standing up. POC followed with no signs or verbalizations of distress noted. Endorsed to the night nurse.
--- NOTE | 2020-07-19 04:51 | NUR ---
PT IS A/O X1 AND IS UP WITH ASSIST. ROOM AIR. SR/SA ON THE MONITOR. USES A URINAL WITH ASSISTANCE STANDING AT THE BEDSIDE. CAN BE INCONTINENT AT TIMES. IMPULSIVE AND REQUIRES FREQUENT CHECKS. DENIES ANY C/O PAIN OR DISCOMFORT. MEDICATIONS GIVEN WHOLE WITH WATER. FALL PRECAUTIONS IN PLACE, CALL LIGHT IS WITHIN REACH.
[2020-07-19 05:26] LABS: MCH 31.2 pg (26.0-34.0); MCHC 33.6 g/dL (28.0-37.0); MCV 92.9 fL (80.0-100.0); RBC 2.26 mil/uL (4.50-6.00); RDW 14.9 % (10.5-14.5); WBC 6.1 thou/uL (4.0-11.0)
[2020-07-19 05:57] LABS: CALCIUM 8.5 mg/dL (8.5-10.1); CREATININE 3.9 mg/dL (0.7-1.3); MAGNESIUM 2.2 mg/dL (1.8-2.4); POTASSIUM 4.2 mmol/L (3.5-5.1)
[2020-07-19 07:23] VITALS: BP 144/77
--- NOTE | 2020-07-19 12:52 | NUR ---
ASSUMED CARE OF PATIENT AT SHIFT CHANGE. ASSESSMENT CHARTED. MEDICATIONS ADMINISTERED PER EMAR. VSS. PATIENT IS ALERT AND ORIENTED X3 WITH SOME CONFUSION AT TIMES. PATIENT WORKEED W PT/OT AND DID WELL. UPX1 W SUPERVISION. PATIENT USES URINAL AND VOIDS WELL; KIDNEY PROVIDER PUT AN ORDER IN FOR A MADRID CATHETER. PATIENT BLADDER SCANNED PRIOR. PATIENT HAD A 16 BEAT RUN OF CONTINUOUS VTACH AT APPROX 1121 WHEN GETTING UP W OT. PATIENT WAS ASSYMPTOMATIC. PROVIDER NOTIFIED; NO NEW ORDERS. DENIES PAIN OR DISCOMFORT. SHOWERED TODAY W MINIMAL ASSISTANCE. SPOUSE AT BEDSIDE AND VOICES NO NEW NEEDS. WILL CONTINUE TO MONIOTOR AND FOLLOW PLAN OF CARE
--- NOTE | 2020-07-19 15:19 | NUR ---
CARE TEAM INDICATED THAT PT IS PROGRESSING TOWARD GOAL OF DISHCARGE. CARE TEAM MONITORING CR WHICH IS TRENDING DOWN. IT IS ANTICPATED THAT PT WILL BE SAFE TO RETURN HOME WITH SPOUSE AND RESUME HH SERVICES WITH [facility]. SHOULD PT BE DC READY OVER THE WEEKEND CONTACT [facility] AT FAX ORDERS TO . PT HAS RECOMMENDED DME. CM TO FOLLOW INDICATED WITH DC PLANNING.
--- NOTE | 2020-07-19 15:29 | NUR ---
PT ON SERVICE WITH [facility] PRIOR TO ADM FAXED CLINICAL UPDATE AND LEFT MS WITH INTAKE.
[2020-07-19 15:50] VITALS: BP 142/85
[2020-07-19 17:46] LABS: HEMATOCRIT 22.4 % (42.0-52.0); HEMOGLOBIN 7.2 gm/dL (14.0-18.0); MCH 30.4 pg (26.0-34.0); MCHC 32.2 g/dL (28.0-37.0); MCV 94.4 fL (80.0-100.0); RBC 2.37 mil/uL (4.50-6.00); RDW 15.3 % (10.5-14.5); WBC 6.6 thou/uL (4.0-11.0)
[2020-07-19 20:18] VITALS: BP 143/84
--- NOTE | 2020-07-20 05:29 | NUR ---
ASSUMED CARE OF PT AT 1900HRS. PT AOX2 AND LETS NEEDS BE KNOWN. FALL RPECAUTION IN PLACE. MADRID IN PLACE FOR RETENTION AND IS PATIENT. PT WAS ON SINUS ARRHYTHMIA PER TELE. ASSESSMENT CHARTED. PT WAS ABLE TO GET COMFORTABLE AND SLEEP PART OF THE SHIFT. VSS AND NO S/S OF ACUTE DISTRESS. WILL CONTINUE TO MONITOR.
[2020-07-20 06:38] LABS: HEMOGLOBIN 7.1 gm/dL (14.0-18.0); MCH 30.8 pg (26.0-34.0)
[2020-07-20 06:45] LABS: HEMATOCRIT 21.6 % (42.0-52.0); MCHC 32.9 g/dL (28.0-37.0); MCV 93.8 fL (80.0-100.0); RBC 2.3 mil/uL (4.50-6.00); RDW 14.6 % (10.5-14.5); WBC 6.2 thou/uL (4.0-11.0)
[2020-07-20 06:52] LABS: CALCIUM 8.3 mg/dL (8.5-10.1); CREATININE 3.6 mg/dL (0.7-1.3); MAGNESIUM 2.2 mg/dL (1.8-2.4); POTASSIUM 4.2 mmol/L (3.5-5.1)
[2020-07-20 07:27] VITALS: BP 131/71
[2020-07-20 15:06] VITALS: BP 131/74
--- NOTE | 2020-07-20 16:36 | NUR ---
ASSUMED CARE OF PATIENT AT 0700. ASSESSMENT CHARTED. MEDICATIONS ADMINISTERED PER EMAR. VSS. PATIENT IS A&OX3 BUT CONFUSED AT TIMES. PATIENT IS FORGETFUL; PATIENT SEARCHING FOR URINAL AND NEEDING TO BE REMINDED OF CATHETER BEING IN PLACE. PATIENT VOICED NOT HAVING BREAKFAST HOWEVER PATIENT DID RECIEVE BREAKFAST AND WAS SET UP. SPOUSE WAS AT BEDSIDE MOST OF DAY. PATIENT TOLERATED FLUIDS BUT IS NOT CLOSE TO RESTRICTION LIMIT. PATIENT DENIED PAIN AND VOICED NO OTHER NEEDS. WILL CONTINUE TO MONITOR AND FOLLOW PLAN OF CARE.
[2020-07-20 20:11] VITALS: BP 115/61
--- NOTE | 2020-07-21 04:28 | NUR ---
ASSUMED CARE OF PT AT 1900HRS. PT AOX2-3 WITH SOME CONFUSION AND FORGETFULNESS. FALL PRECAUTION IN PLACE. ASSESSMENT CHATED. PT TOOK ALL HS MEDS WHOLE WITH WATER. PT DENIED PAIN, NAUSEA OR SOA. ASSESSMENT CHARTED. PT RAN SR/SA ON TELE. PT WAS AURELIO TO GET COMFORTABLE AND SLEEP PART OF THE SHIFT. VSS AND NO S/S OF ACUTE DISTRESS. WILL CONTINUE TO MONITOR FOR CHANGES.
[2020-07-21 05:35] VITALS: BP 136/84
[2020-07-21 06:02] LABS: HEMOGLOBIN 6.8 gm/dL (14.0-18.0); MCH 31.1 pg (26.0-34.0)
[2020-07-21 06:03] LABS: HEMATOCRIT 20.2 % (42.0-52.0); MCHC 33.4 g/dL (28.0-37.0); MCV 93.2 fL (80.0-100.0); RBC 2.17 mil/uL (4.50-6.00); RDW 14.8 % (10.5-14.5); WBC 5.7 thou/uL (4.0-11.0)
[2020-07-21 06:39] LABS: ALBUMIN 2.5 g/dL (3.4-5.0); CALCIUM 7.9 mg/dL (8.5-10.1); CREATININE 3.6 mg/dL (0.7-1.3); PHOSPHORUS 3.7 mg/dL (2.5-4.9)
[2020-07-21 07:39] VITALS: BP 141/79
[2020-07-21 12:22] VITALS: BP 106/79; BP 124/65
--- NOTE | 2020-07-21 15:52 | NUR ---
PT PLEASANT AND COOPERATIVE WITH CARES. RECEIVED 1 UNIT OF BLOOD THIS SHIFT. DENIED HAVING PAIN OR DISCOMFORT. AT THE BEDSIDE. UPDATED ON PT'S PROGRESS. NO CONCERNS AT THIS TIME.
[2020-07-21 20:03] VITALS: BP 146/85
--- NOTE | 2020-07-22 04:54 | NUR ---
ASSESSMENT DOCUMENTED.PT BEEN RESTING IN NO ACUTE DISTRESS.A/OX3 W/FORGETFULNESS.PT SLEEPING MOST OF THE NOC.MERCY DD.PROGRESSING SLOWLY TO DISCHARGE GOALS.PT DENIES ANY CONCERNS AT THIS TIME.WILL CONT WITH CURRENT MANAGEMENT.
[2020-07-22 05:30] LABS: HEMATOCRIT 24.9 % (42.0-52.0); HEMOGLOBIN 8.3 gm/dL (14.0-18.0); MCH 30.3 pg (26.0-34.0); MCHC 33.2 g/dL (28.0-37.0); MCV 91.2 fL (80.0-100.0); RBC 2.73 mil/uL (4.50-6.00); WBC 6.3 thou/uL (4.0-11.0)
[2020-07-22 05:49] LABS: ALBUMIN 2.6 g/dL (3.4-5.0); CALCIUM 8.1 mg/dL (8.5-10.1); CREATININE 3.4 mg/dL (0.7-1.3); PHOSPHORUS 3.7 mg/dL (2.5-4.9); POTASSIUM 4.2 mmol/L (3.5-5.1)
[2020-07-22 06:00] VITALS: BP 145/65
[2020-07-22 07:11] VITALS: BP 174/104
[2020-07-22 09:19] VITALS: BP 151/79
--- NOTE | 2020-07-22 09:25 | NUR ---
ASSUMED PT CARE THIS AM. PT HAD ELEVATED BLOOD PRESSURE THIS AM THAT RESPONDED WELL TO BLOOD PRESSURE MEDS GIVEN UPON REASSESSMENT. IV PATENT, TOOK MEDS WELL THIS AM. NO EDEMA NOTED IN EXTREMITIES. NO PAIN NOTED. MADRID DRAINING YELLOW URINE. ON ROOM AIR. ON TELE. FALL PRECAUTIONS IN PLACE, CALLING APPROPRIATELY WHEN NEEDED.
--- NOTE | 2020-07-22 12:10 | NUR ---
CARE TEAM INDICATED THAT PT WILL LIKELY BE MEDICALLY STABLE TO DISCHARGE HOME TOMORROW. PLAN IS FOR PT TO RESUME HOME HEALTH SERVICES WITH [facility]. CM TO FOLLOW INDICATED WITH DC PLANNING.
[2020-07-22 15:20] VITALS: BP 151/79
[2020-07-22 15:47] VITALS: BP 142/75
[2020-07-22 19:50] VITALS: BP 153/90
--- NOTE | 2020-07-23 03:46 | NUR ---
PT CARE ASSUMED WITH PT IN BED.PT IS A/O X2.PT IS UP WITH X1 ASSIST TO THE BCS USING WALKER AND GAIT BELT.PT IS ON 1750 FLUID RESTRICTION AND HAS A MADRID IN PLACE.PT APPEARED TO BE IN NO ACUTE DISTRESS.WILL CONTINUE TO MONITOR
[2020-07-23 05:30] LABS: ALBUMIN 2.6 g/dL (3.4-5.0); CALCIUM 8.1 mg/dL (8.5-10.1); CREATININE 3.2 mg/dL (0.7-1.3); PHOSPHORUS 3.7 mg/dL (2.5-4.9); POTASSIUM 4.3 mmol/L (3.5-5.1)
[2020-07-23 08:03] VITALS: BP 168/99
[2020-07-23 08:30] LABS: HEMATOCRIT 26.1 % (42.0-52.0); HEMOGLOBIN 8.6 gm/dL (14.0-18.0); MCH 30.6 pg (26.0-34.0); MCHC 32.8 g/dL (28.0-37.0); MCV 93.2 fL (80.0-100.0); RBC 2.8 mil/uL (4.50-6.00); RDW 14.9 % (10.5-14.5); WBC 6.4 thou/uL (4.0-11.0)
[2020-07-23 09:28] VITALS: BP 151/79
[2020-07-23] MEDS ORDERED: METOPROLOL SUCC50 MG PO (12:16)
[2020-07-23] MEDS ORDERED: VERAPAMIL SR 1120 MG PO (12:16)
[2020-07-23] MEDS ORDERED: FINASTERIDE5 MG PO (12:17)
[2020-07-23] MEDS ORDERED: FLOMAX0.4 MG PO (12:18)
--- NOTE | 2020-07-23 12:34 | NUR ---
ASSUMED PT CARE THIS AM. PT VSS. PT COOPERATIVE WITH STAFF. REPORTS NO PAIN. MADRID IN PLACE, DRAINING WELL. CALLS APPROPRIATELY WHEN NEEDED .MEDS TAKEN WITHOUT ISSUE THIS AM. PATIENT AMBULATORY TO THE BEDSIDE COMMODE. ON TELEMETRY. IV PATENT. FALL PRECAUTIONS IN PLACE. AT BEDSIDE.
--- NOTE | 2020-07-23 13:30 | NUR ---
CARE TEAM INDICATED THAT PT IS MEDICALLY STABLE TO DC HOME THIS DAY. CM MET WITH PT AND SPOUSE AT BEDSIDE AND THEY ARE AWARE AND AGREEABLE. THEY ARE WANTING TO RESUME HH SERVICES WITH [facility]. ORDERS WERE FAXED TO THEM. THEIR SON IS TO PROVIDE TRNASPORT HOME AROUND 1400 THIS AFTERNOON. PT HAS ALL RECOMMENDED DME. NO OTHER CM INTERENTION INDICATED. CASE CLOSED.
--- NOTE | 2020-07-23 15:27 | NUR ---
PT DISCHARGING TODAY TO HOME WITH [facility] FAXED DC ORDERS/SUMMARY SPOKE WITH INTAKE THEY RECEIVED ORDERS AND WILL ARRANGE VISITS WITH PT.
== END 2020-07-23 16:18 | disposition home health service (06) | DRG 682 ==
LOC: ER 17:12 → 4W 19:42 → EROBS 19:42 → 4W 07-16 00:02
PROVIDERS: Emergency Medicine; Hospitalist; Internal Medicine; Internal Medicine Nephrology; Nurse Practitioner Family; ADMIT Hospitalist; ATTEND Hospitalist
PROC: 30233N1 Transfusion of Nonautologous Red Blood Cells into Peripheral Vein, Percutaneous Approach (ICD-10-PCS; principal; 2020-07-21)
DX: N17.9 Acute kidney failure, unspecified (principal); I50.33 Acute on chronic diastolic (congestive) heart failure; I13.0 Hypertensive heart and chronic kidney disease with heart failure and stage 1 through stage 4 chronic kidney disease, or unspecified chronic kidney disease; I48.92 Unspecified atrial flutter; I48.0 Paroxysmal atrial fibrillation; D64.9 Anemia, unspecified; R33.9 Retention of urine, unspecified; E78.00 Pure hypercholesterolemia, unspecified; E78.5 Hyperlipidemia, unspecified; I25.5 Ischemic cardiomyopathy; E03.9 Hypothyroidism, unspecified; N18.32 Chronic kidney disease, stage 3b; E87.70 Fluid overload, unspecified; R53.81 Other malaise; I08.1 Rheumatic disorders of both mitral and tricuspid valves; N28.1 Cyst of kidney, acquired; M10.9 Gout, unspecified; I25.10 Atherosclerotic heart disease of native coronary artery without angina pectoris; I25.2 Old myocardial infarction; Z79.899 Other long term (current) drug therapy; Z95.5 Presence of coronary angioplasty implant and graft; Z79.82 Long term (current) use of aspirin; Z88.8 Allergy status to other drugs, medicaments and biological substances
CPT/HCPCS: 10045

== ENCOUNTER 2020-07-29 11:28 | Inpatient (IN) | payer OTHER ==
[~2020-07-29] VITALS: Ht 177.8 cm; Wt 98.6 kg
--- NOTE | ~2020-07-29 | EMS ---
[address] [address] EMS Patient Care Report Name: ANNA TORRES Room #: 170-23 ADM IN M.R.#: [id number] Admission: 07/29/20 Attend Phys: Liana Costa MD Discharge: Date of : 38 Report #: [id number] THIS REPORT FOR: //name// Report Transmitted: 07/30/2020 04:01 EMS Care Summary [place], [place]/[facility] Incident [id number] @ 07/29/2020 10:58 Incident Location [id number] [place] [address] Patient ANNA TORRES Male, 80 Years 1940 Patient Address [id number] [place] [address] Patient History Kidney/Renal Failure, Patient Medications Other, ASA, Chief Complaint decreased mental status Disposition Transported No Lights/[place] Dispatch Reason Sick Person Transported To [facility] Narrative Arrived to [facility] to find home health nurse meet us in lobby. RN stated she saw her pt on Wednesday and he was his normal self, AOx3, walking and talking. She checked on him today and he can't walk due to his weakness, he is confused, and very lethargic and bradycardic. RN stated he is in kidney failure and the [address] [address] EMS Patient Care Report Name: ANNA TORRES Room #: 170-23 ADM IN .R.#: [id number] Admission: 07/29/20 Attend Phys: Liana Costa MD Discharge: Date of : 38 Report #: [id number] stated he started declining Wednesday after the RN left. stated he had fallen several times this weekend but did not hit his head. Pt stopped Eliquis one week ago and did not replace it with another blood thinner. Arrived to apt to find pt supine in bed. Pt stated he did not hurt anywhere but just felt tired and weak. Pt also denied hitting his head and confirmed he had not. Pt was bradycardic on monitor. Pt was able to answer all questions except the year. Pt was lifted onto cot and secured with cot straps. Pt placed in back of unit and placed in surgical mask. Due to proximity to hospital (apt complex right next to hospital) and IV was not attempted. Pt transported without incident. Pt remained alert and talking the entire time. Care to RN, rm 11. Initial Vitals @11:09P: 43,BP: 99/55,Glucose: 190,CO: 3,SpO2: 96, @11:08P: 48,SpO2: 96, @11:24P: 44,CO: 0,SpO2: 99, @11:21P: 54,BP: 93/55,CO: 4,SpO2: 98, @11:16P: 54,R: 20,Pain: 0/10,GCS: 14,SpO2: 94, @11:18P: 43,BP: 91/53,CO: 9,SpO2: 95, Assessments @11:09MENTAL:Confused,Person Oriented,Event Oriented,Place Oriented,SKIN:HEENT:Head/Face: No Abnormalities,Neck/Airway: No Abnormalities,LUNG SOUNDS:Left Upper: No Abnormalities,Right Upper: No Abnormalities,Left Lower: No Abnormalities,Right Lower: No Abnormalities,ABDOMEN:Left Upper: No Abnormalities,Right Upper: No Abnormalities,Left Lower: No Abnormalities,Right Lower: No Abnormalities,PELVIS//GI:Pelvis GUOther,EXTREMITIES:Capillary Refill: Right Upper: < 2 Sec,Left Arm: No Abnormalities,Right Arm: No Abnormalities,Left Leg: No Abnormalities,Right Leg: No Abnormalities,PULSE:Radial: 2+ Normal,NEURO: Impression Altered Mental Status Procedures @11:09ALS AssessmentResponse: UnchangedSucceeded Timeline 10:56,Call Received 10:56,Dispatch Notified 10:58,Dispatched 10:59,En Route 11:04,On Scene 11:08,At Patient 11:08,BP: / M,PULSE: 48,RR: R,SPO2: 96 Ox,ETCO2: ,BG: ,PAIN: ,GCS: , 11:09,ALS Assessment,Response: UnchangedSucceeded, 11:09,BP: 99/55 M,PULSE: 43,RR: R,SPO2: 96 Ox,ETCO2: ,B,PAIN: ,GCS: , [address] [place] [address] EMS Patient Care Report Name: ANNA TORRES Room #: 170-23 ADM IN M.R.#: [id number] Admission: 07/29/20 Attend Phys: Liana Costa MD Discharge: Date of : 38 Report #: [id number] 11:16,BP: / M,PULSE: 54,RR: 20 R,SPO2: 94 Ox,ETCO2: ,BG: ,PAIN: 0,GCS: 14, 11:18,BP: 91/53 M,PULSE: 43,RR: R,SPO2: 95 Ox,ETCO2: ,BG: ,PAIN: ,GCS: , 11:20,Depart Scene 11:21,BP: 93/55 M,PULSE: 54,RR: R,SPO2: 98 Ox,ETCO2: ,BG: ,PAIN: ,GCS: , 11:22,At Destination 11:24,BP: / M,PULSE: 44,RR: R,SPO2: 99 Ox,ETCO2: ,BG: ,PAIN: ,GCS: , 11:38,Call Closed Disclaimer v1.1 Copyright 2020 [employer] This EMS Care Summary contains data elements from the applicable legal record (which may be displayed differently). It is designed to provide pertinent information for the following purposes: continuity of care, clinical quality, and state data reporting. The complete legal record is available to ED staff and administrators of the receiving hospital in [employer] Patient Tracker. All data is provided "as is."
[~2020-07-29 11:28] MED LIST changes: +FINASTERIDE5 MG PO; +LIPITOR 40 MG T40 M1 PO; +METOPROLOL SUCC50 MG PO; +VERAPAMIL SR 1120 MG PO
[2020-07-29 11:34] VITALS: BP 98/45
[2020-07-29 12:32] LABS: HEMATOCRIT 26.9 % (42.0-52.0); HEMOGLOBIN 8.8 gm/dL (14.0-18.0); MCH 30.8 pg (26.0-34.0); MCHC 32.8 g/dL (28.0-37.0); MCV 93.9 fL (80.0-100.0); RBC 2.86 mil/uL (4.50-6.00); RDW 14.9 % (10.5-14.5); WBC 10.6 thou/uL (4.0-11.0)
[2020-07-29 12:43] LABS: ANION GAP 9 mmol/L (7-16); BUN 65 mg/dL (7-18); CALCIUM 8.4 mg/dL (8.5-10.1); CHLORIDE 104 mmol/L (98-107); CO2 20 mmol/L (21-32); CREATININE 3.9 mg/dL (0.7-1.3); GLUCOSE 143 mg/dL (74-106); POTASSIUM 4.8 mmol/L (3.5-5.1); SODIUM 133 mmol/L (136-145)
[2020-07-29 12:53] LABS: ALBUMIN 2.8 g/dL (3.4-5.0); SGOT 26 U/L (15-37); SGPT 28 U/L (16-63); TOTAL BILIRUBIN 0.5 mg/dL (0.2-1.0); TOTAL PROTEIN 7.1 g/dL (6.4-8.2); TROPONIN-I <0.06 ng/mL (<0.06)
[2020-07-29 13:14] LABS: PLATELET COUNT 173 thou/uL (150-400)
[2020-07-29 13:15] LABS: URINE BILIRUBIN NEGATIVE (Negative); URINE BLOOD 1+ (Negative); URINE CLARITY CLOUDY; URINE COLOR YELLOW; URINE GLUCOSE-RANDOM* NEGATIVE (Negative); URINE KETONES NEGATIVE (Negative); URINE NITRITE-REFLEX NEGATIVE (Negative); URINE PROTEIN (DIPSTICK) 1+ (Negative); URINE SPECIFIC GRAVITY 1.025 (1.005-1.035); URINE UROBILINOGEN 0.2 E.U./dl (0.2-1.0)
[2020-07-29 13:15] LABS: LARGE PLATELETS RARE
[2020-07-29 13:16] LABS: ABSOLUTE NEUTROPHILS 9.2 thou/uL (1.4-8.2)
[2020-07-29 13:30] LABS: URINE LEUKOCYTES-REFLEX 2+ (Negative)
[2020-07-29 13:40] LABS: BACTERIA-REFLEX >30 Many /HPF (None Seen); CASTS None Seen /LPF (None Seen); SQUAMOUS None Seen /LPF (0-3); URIC ACID CRYSTALS >10 Many /LPF (None Seen); URINE RBC 0-2 Rare /HPF (0-2); URINE WBC-REFLEX 6-15 Few /HPF (0-5)
[2020-07-29 13:41] LABS: CALCIUM OXALATE 4-10 Moderate /LPF (None Seen)
[2020-07-29] MEDS ORDERED: ELIQUIS2.5 MG PO (19:28)
[2020-07-29] MEDS ORDERED: CLOPIDOGREL75 MG PO (20:05)
[2020-07-30] VITALS (7 sets, daily range): BP systolic 134–152; BP diastolic 76–87
[2020-07-30 05:10] LABS: HEMATOCRIT 25.6 % (42.0-52.0); HEMOGLOBIN 8.4 gm/dL (14.0-18.0); MCH 30.5 pg (26.0-34.0); MCHC 32.7 g/dL (28.0-37.0); MCV 93.2 fL (80.0-100.0); RBC 2.75 mil/uL (4.50-6.00); RDW 14.6 % (10.5-14.5); WBC 8.5 thou/uL (4.0-11.0)
[2020-07-30 05:18] LABS: CALCIUM 8.3 mg/dL (8.5-10.1); CREATININE 4.3 mg/dL (0.7-1.3); POTASSIUM 4.8 mmol/L (3.5-5.1)
--- NOTE | 2020-07-30 07:19 | EKG ---
[address] [place] [address] ELECTROCARDIOGRAM REPORT Name: ANNA TORRES Room #: 170-23 ADM IN M.R.#: [id number] Admission: 07/29/20 Attend Phys: Liana Costa MD Discharge: Date of : 38 Report #: [id number] [facility] ED Test Date: 2020-07-29 Test Time: 11:47:20 Pat Name: ANNA TORRES Department: Room: 170 Gender: M Department Assistant: AMARIS : 1940 Requested By: Miranda Stokes Order Number: [id number] : Mark Downs Measurements Intervals [place] Rate: 43 P: 76 ND: 184 QRS: 6 QRSD: 93 T: 6 QT: 538 QTc: 456 Interpretive Statements Sinus bradycardia Borderline low voltage, extremity leads Baseline wander in lead(s) V1 Compared to ECG 07/15/2020 17:35:07 Sinus tachycardia no longer present ST (T wave) deviation no longer present Electronically Signed On 07-30-2020 7:19:41 GOLF COURSE ASSISTANT by Mark Downs [email or web address] <ELECTRONICALLY SIGNED> By: Mark Downs MD, [facility] 07/30/20 0719 1147 1147 Mark Downs MD, [facility] /EPI
[2020-07-31] VITALS (49 sets, daily range): BP systolic 105–186; BP diastolic 72–100
[2020-07-31 10:13] LABS: HEMATOCRIT 26.5 % (42.0-52.0); HEMOGLOBIN 8.9 gm/dL (14.0-18.0); MCHC 33.7 g/dL (28.0-37.0); MCV 92.1 fL (80.0-100.0); RBC 2.87 mil/uL (4.50-6.00); RDW 14.6 % (10.5-14.5); WBC 8.5 thou/uL (4.0-11.0)
[2020-07-31 10:20] LABS: CALCIUM 8.2 mg/dL (8.5-10.1); CREATININE 3.9 mg/dL (0.7-1.3); POTASSIUM 3.8 mmol/L (3.5-5.1)
[2020-07-31 10:59] LABS: APTT 26.5 Seconds (24.5-32.8); INR 1.2; PROTIME 12.7 Seconds (9.3-11.4)
--- NOTE | 2020-07-31 12:40 | 2DMMODE ---
[facility] Betito Wilkerson [place] [address] 2 D/M-MODE ECHOCARDIOGRAM Name: ANNA TORRES Room #: 244-P ADM IN M.R.#: [id number] Admission: 07/29/20 Attend Phys: Liana Costa MD Discharge: Date of : 38 Report #: [id number] THIS REPORT FOR: cc: Nando De Santiago K. Steven DO Lammoglia, Francisco J. MD ~ APPROVED REPORT Study performed: 07/31/2020 11:34:05 EXAM: Comprehensive 2D, Doppler, and color-flow Echocardiogram Patient Location: ICU Room #: 244 Status: routine BSA: 1.89 HR: 87 bpm BP: 136/76 mmHg Rhythm: NSR Other Information Study Quality: Good Indications CVA/TIA Echo Enhancing Agent Indication: Rule out Shunt Agent(s) / Amount(s) Used: Agitated Saline 7 cc Left Ventricle The left ventricle is normal size. There is normal LV segmental wall motion. There is normal left ventricular wall thickness. The left ventricular systolic function is normal. The left ventricular ejection fraction is within the normal range. LVEF is 55-60%. This study is not technically sufficient to allow evaluation of the LV diastolic function. Right Ventricle The right ventricle is normal size. The right ventricular systolic function is normal. Atria Left atrium is dilated. Interatrial septum is intact without evidence of ASD or PFO. Right atrium is dilated. [facility] [address] [place] [address] 2 D/M-MODE ECHOCARDIOGRAM Name: ANNA TORRES Room #: 244-P ADM IN M.R.#: [id number] Admission: 07/29/20 Attend Phys: Liana Costa MD Discharge: Date of : 38 Report #: [id number] Aortic Valve The aortic valve is not well visualized. TAVR is present Mitral Valve The mitral valve is normal in structure. There is mitral annular calcification. Tricuspid Valve The tricuspid valve is normal in structure. Pulmonic Valve The pulmonary valve is normal in structure. Great Vessels The aortic root is normal in size. Pericardium There is no pericardial effusion. <Conclusion> The left ventricle is normal size. LVEF is 55-60%. Left atrium is dilated. Right atrium is dilated. The aortic valve is not well visualized. TAVR is present The mitral valve is normal in structure. There is mitral annular calcification. There is no pericardial effusion. <ELECTRONICALLY SIGNED> By: Isai Abreu MD 07/31/20 1240 1240 1240 Isai Abreu MD /INF
--- NOTE | 2020-07-31 17:43 | EKG ---
[place] [address] [email or web address] [place] [address] ELECTROCARDIOGRAM REPORT Name: TORRESANNA Room #: 244-P ADM IN M.R.#: [id number] Admission: 07/29/20 Attend Phys: Liana Costa MD Discharge: Date of : 38 Report #: [id number] [facility] Test Date: 2020-07-31 Test Time: 11:39:08 Pat Name: ANNA TORRES Department: Room: 244 Gender: M Adolescent Coordinator: JOANN : 1940 Requested By: Cheyanne Juan Order Number: [id number] MD: Ezra Matias Measurements Intervals [place] Rate: 87 P: SC: QRS: 5 QRSD: 95 T: 20 QT: 440 QTc: 530 Interpretive Statements Sinus rhythm Low voltage, extremity leads Compared to ECG 07/29/2020 11:47:20 Accelerated junctional rhythm now present Prolonged QT interval now present Sinus bradycardia no longer present Electronically Signed On 07-31-2020 17:43:08 FABRICATING MACHINE OPERATOR by Ezra Matias [email or web address] <ELECTRONICALLY SIGNED> By: Ezra Matias MD 07/31/20 1743 1139 1139 Ezra Matias MD /ROB
[2020-08-01] VITALS (32 sets, daily range): BP systolic 138–184; BP diastolic 72–99
[2020-08-01 03:36] LABS: CHOLESTEROL 105 mg/dL (<200); HDL CHOLESTEROL 31 mg/dL (>40); LDL CHOLESTEROL 61 mg/dL (<100); TC:HDL 3.4 Ratio (Not establshd); TRIGLYCERIDE 69 mg/dL (<150); VLDL 14 mg/dL (<40)
[2020-08-01 03:48] LABS: SERUM ASSESSMENT Clear
[2020-08-01 07:22] LABS: ALBUMIN 2.3 g/dL (3.4-5.0); CALCIUM 7.7 mg/dL (8.5-10.1); CREATININE 3.5 mg/dL (0.7-1.3); POTASSIUM 3.7 mmol/L (3.5-5.1)
[2020-08-01 11:22] LABS: HEMATOCRIT 25.6 % (42.0-52.0); HEMOGLOBIN 8.5 gm/dL (14.0-18.0); MCH 30.9 pg (26.0-34.0); MCHC 33.2 g/dL (28.0-37.0); MCV 92.9 fL (80.0-100.0); RBC 2.75 mil/uL (4.50-6.00); RDW 14.9 % (10.5-14.5); WBC 7.5 thou/uL (4.0-11.0)
[2020-08-01] MEDS ORDERED: TOPROL XL50 MG (12:03)
[2020-08-01] MEDS ORDERED: VERAPAMIL ER120 MG PO (12:05)
[2020-08-01] MEDS ORDERED: ELIQUIS2.5 MG PO (12:07)
[2020-08-01] MEDS ORDERED: MEGESTROL ACETA40 MG PO (12:07)
[2020-08-01 20:33] LABS: GLYCOHEMOGLOBIN (HGB A1C) 4.9 % (4.8-5.6)
[2020-08-02] VITALS (17 sets, daily range): BP systolic 120–171; BP diastolic 67–93
[2020-08-02 05:10] LABS: ALBUMIN 2.2 g/dL (3.4-5.0); CALCIUM 7.7 mg/dL (8.5-10.1); CREATININE 3.2 mg/dL (0.7-1.3); PHOSPHORUS 3.4 mg/dL (2.5-4.9); POTASSIUM 3.6 mmol/L (3.5-5.1)
--- NOTE | 2020-08-02 07:12 | EKG ---
[address] [place] [address] ELECTROCARDIOGRAM REPORT Name: ANNA TORRES Room #: 244-P ADM IN M.R.#: [id number] Admission: 07/29/20 Attend Phys: Liana Costa MD Discharge: Date of : 38 Report #: [id number] [facility] Test Date: 2020-08-01 Test Time: 18:01:08 Pat Name: ANNA TORRES Department: Room: 244 P Gender: M Supervisor [employer]: STAN : 1940 Requested By: Cheyanne Juan Order Number: [id number] MD: Mark Downs Measurements Intervals [place] Rate: 131 P: MS: QRS: 9 QRSD: 95 T: 19 QT: 320 QTc: 473 Interpretive Statements Atrial fibrillation Low voltage, extremity leads Compared to ECG 07/31/2020 11:39:08 Sinus rhythm no longer present Electronically Signed On 08-02-2020 7:12:19 FINANCIAL PLANNING ADVISER by Mark Downs [email or web address] <ELECTRONICALLY SIGNED> By: Mark Downs MD, [facility] 08/02/2012 00 00 Mark Downs MD, FACC /EPI
[2020-08-02 07:41] LABS: URINE BILIRUBIN NEGATIVE (Negative); URINE BLOOD TRACE (Negative); URINE CLARITY CLEAR; URINE COLOR YELLOW; URINE GLUCOSE-RANDOM* NEGATIVE (Negative); URINE KETONES NEGATIVE (Negative); URINE LEUKOCYTES 1+ (Negative); URINE NITRITE NEGATIVE (Negative); URINE PROTEIN (DIPSTICK) TRACE (Negative)
[2020-08-02 08:37] LABS: CASTS None Seen /LPF (None Seen); MUCUS 0-3 Light strn/LPF (None Seen); SQUAMOUS 0-3 Few /LPF (0-3)
[2020-08-02 08:38] LABS: BACTERIA 1-9 Few /HPF (None Seen); CRYSTALS None Seen /LPF (None Seen); URINE RBC 0-2 Rare /HPF (0-2); URINE WBC 6-15 Few /HPF (0-5)
--- NOTE | 2020-08-02 10:53 | HC ---
[facility] [place] [address] CONSULTATION Name: ANNA TORRES Room #: 244-P ADM IN M.R.#: [id number] Admission: 07/29/20 Attend Phys: Liana Costa MD Discharge: Date of : 38 Report #: [id number] THIS REPORT FOR: cc: Nando De Santiago K. Steven DO Khosla, Parveen K. MD ~ DATE OF SERVICE: 07/31/2020 HISTORY OF PRESENT ILLNESS: This is an 80-year-old male patient for whom a consultation was requested for the possibility of stroke. I got the first call from Dr. Juan, the hospitalist in this patient when I was in spring. She indicated that this patient had acute onset of right-sided weakness and aphasia. The patient was in the hospital for weakness, hypotension. He has a history of atrial fibrillation. He used to be on Eliquis, but that was held about 7 days ago. That was held because of the falls. I talked to her on the phone and they were getting a NIH scale of more than 10 and I asked them to pull out a package and look for exclusion criteria and if no exclusion criteria is found, the patient can be given TPA after discussing the indication, potential complication, and alternatives with the family. I also called the clinical care coordinator, who was there and talked to her in detail and they went over all the contraindications and there was no contraindication and the patient was given TPA. I came and saw the patient and because of the time constraint, only a small note is being dictated and rest of it will be dictated later on. I examined the patient and this patient is aphasic. He does have right-sided weakness, although he does have movement on the right side. 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 He does not understand the instructions most of the time. I had a long talk with the patient's . I frankly discussed with her TPA and its potential complications including intracerebral hemorrhage and . I discussed with her that if he stays like this, his quality of the life may be poor because aphasia affect the quality of the life significantly. On the other hand, he is on a high risk for intracerebral hemorrhage because of his age. Although his anticoagulation with Eliquis was discontinued 7 days ago and that is beyond the 5 half-life, but the data on that is not clear. His platelet is also low, although it is more than 100,000. That all increase his chances of having a bleed. His PT, PTT was normal. He became emotional after hearing that he can from the medication, but I told her that is the reality that happens. She understood that and she wanted to go ahead with the TPA. She signed a consent and we went ahead and continued the TPA in this patient. I discussed the plan with her. There is a lot of problem in managing this patient. His GFR is only 15. So, I cannot do CT angio and perfusion in this patient. I have called the MRI and told to do MRI of the brain and MRA of the [address] [address] CONSULTATION Name: ANNA TORRES Room #: 244-P [facility] IN M.R.#: [id number] Admission: 07/29/20 Attend Phys: Liana Costa MD Discharge: Date of : 38 Report #: [id number] head and neck stat on him. If he does have an embolus in the large branch, he needs to be transferred to another facility for thrombectomy, but that will shut down his kidneys. If that happens, he needs to be evaluated by another facility. Unfortunately, we do not have any neurosurgeon either here now and if he bleeds, he may need neurosurgical intervention. All of it was frankly discussed with the patient's . She was given all the options and alternative. Ultimately, she wanted us to give the TPA, keep him here and we will look at the MRI and MRA and they are ready for him as soon as he finishes infusion and clinical care coordinator is going to take him there and we will have another talk with the patient's after that and an addendum will be dictated to that effect after that. Thank you very much for this referral. <ELECTRONICALLY SIGNED> By: Tony Beatty MD 08/02/20 1053 1134 1302 Tony Beatty MD /nt
[2020-08-03] VITALS (7 sets, daily range): BP systolic 149–176; BP diastolic 79–101
[2020-08-04] VITALS (8 sets, daily range): BP systolic 136–162; BP diastolic 69–88
[2020-08-04 03:41] LABS: CALCIUM 8.2 mg/dL (8.5-10.1); CREATININE 3.1 mg/dL (0.7-1.3); POTASSIUM 3.7 mmol/L (3.5-5.1)
[2020-08-05 04:14] VITALS: BP 133/63
[2020-08-05 07:29] VITALS: BP 147/84
--- NOTE | 2020-08-05 07:38 | EKG ---
[place] [address] [employer] [address] ELECTROCARDIOGRAM REPORT Name: ANNA TORRES Room #: 213-P ADM IN M.R.#: [id number] Admission: 07/29/20 Attend Phys: Liana Costa MD Discharge: Date of : 38 Report #: [id number] [facility] Test Date: 2020-08-04 Test Time: 09:17:26 Pat Name: ANNA TORRES Department: Room: 213 P Gender: M History Faculty Member: : 1940 Requested By: Christian Restrepo Order Number: [id number] : Mark Downs Measurements Intervals [place] Rate: 106 P: 34 KS: 161 QRS: -3 QRSD: 92 T: 2 QT: 382 QTc: 508 Interpretive Statements Sinus tachycardia Low voltage, extremity leads Prolonged QT interval Compared to ECG 08/01/2020 18:01:08 Prolonged QT interval now present Atrial fibrillation no longer present Electronically Signed On 08-05-2020 7:38:31 TEACHER OF THE HEARING IMPAIRED by Mark Downs [email or web address] <ELECTRONICALLY SIGNED> By: Mark Downs MD, [facility] 08/05/20 0738 6 6 Mark Downs MD, FACC /EPI
[2020-08-05] MEDS ORDERED: NORVASC10 MG PO (10:02)
[2020-08-05] MEDS ORDERED: COLACE 100 MG100 MG PO (10:02)
[2020-08-05] MEDS ORDERED: METOPROLOL SUCC50 MG PO (10:02)
[2020-08-05] MEDS ORDERED: TRAMADOL 50 MG50 MG PO (10:02)
[2020-08-05] MEDS ORDERED: PACERONE 200 M200 M1 PO (10:02)
[2020-08-05 11:51] VITALS: BP 131/74
[2020-08-05 15:22] VITALS: BP 132/75
[2020-08-05 19:45] VITALS: BP 148/85
[2020-08-06 04:00] VITALS: BP 135/81
[2020-08-06 07:45] VITALS: BP 151/86
[2020-08-06 08:11] LABS: HEMATOCRIT 22.8 % (42.0-52.0); HEMOGLOBIN 7.6 gm/dL (14.0-18.0); MCH 30.4 pg (26.0-34.0); MCHC 33.5 g/dL (28.0-37.0); MCV 90.9 fL (80.0-100.0); RBC 2.51 mil/uL (4.50-6.00); WBC 4.9 thou/uL (4.0-11.0)
[2020-08-06 08:14] LABS: CALCIUM 8.1 mg/dL (8.5-10.1); CREATININE 3.3 mg/dL (0.7-1.3); POTASSIUM 3.4 mmol/L (3.5-5.1)
[2020-08-06 11:20] VITALS: BP 132/75
[2020-08-06 11:54] VITALS: BP 136/82
[2020-08-06 12:13] LABS: HEMATOCRIT 24.2 % (42.0-52.0)
[2020-08-06] MEDS ORDERED: AUGMENTIN 500-1 EACH PO (12:28)
[2020-08-06] MEDS ORDERED: KLOR-CON M2020 MEQ PO (12:29)
[2020-08-06 19:15] VITALS: BP 129/64
== END 2020-08-06 20:21 | DRG 871 ==
LOC: ER 11:28 → ICU 16:41 → EROBS 16:41 → 4W 07-30 15:40 → ICU 07-31 10:35 → 2N 08-03 01:00
PROVIDERS: Emergency Medicine; Hospitalist; Nurse Practitioner; ADMIT Internal Medicine; ATTEND Internal Medicine
DX: A41.9 Sepsis, unspecified organism (principal); I63.89 Other cerebral infarction; J18.9 Pneumonia, unspecified organism; N39.0 Urinary tract infection, site not specified; N17.9 Acute kidney failure, unspecified; I13.0 Hypertensive heart and chronic kidney disease with heart failure and stage 1 through stage 4 chronic kidney disease, or unspecified chronic kidney disease; I50.32 Chronic diastolic (congestive) heart failure; I48.92 Unspecified atrial flutter; N18.4 Chronic kidney disease, stage 4 (severe); I48.20 Chronic atrial fibrillation, unspecified; G81.91 Hemiplegia, unspecified affecting right dominant side; I95.89 Other hypotension; E03.9 Hypothyroidism, unspecified; E78.00 Pure hypercholesterolemia, unspecified; M10.9 Gout, unspecified; I25.10 Atherosclerotic heart disease of native coronary artery without angina pectoris; I48.91 Unspecified atrial fibrillation; E78.5 Hyperlipidemia, unspecified; D50.9 Iron deficiency anemia, unspecified; D69.6 Thrombocytopenia, unspecified; N28.1 Cyst of kidney, acquired; I95.9 Hypotension, unspecified; I27.20 Pulmonary hypertension, unspecified; N40.1 Benign prostatic hyperplasia with lower urinary tract symptoms; R33.8 Other retention of urine; R29.810 Facial weakness; Z20.822 Contact with and (suspected) exposure to COVID-19; I25.2 Old myocardial infarction; Z95.5 Presence of coronary angioplasty implant and graft; Z88.8 Allergy status to other drugs, medicaments and biological substances; Z79.01 Long term (current) use of anticoagulants; Z79.899 Other long term (current) drug therapy; Z28.89 Immunization not carried out for other reason
CPT/HCPCS: 10045; 10081; 10203

== ENCOUNTER 2020-08-06 16:43 | Inpatient (IN) | payer OTHER ==
[~2020-08-06] VITALS: Ht 152.4 cm; Wt 100.3 kg
[~2020-08-06 16:43] MED LIST changes: +AUGMENTIN 500-1 EACH PO; +CLOPIDOGREL75 MG PO; +COLACE 100 MG100 MG PO; +KLOR-CON M2020 MEQ PO; +MEGESTROL ACETA40 MG PO; +NORVASC10 MG PO; +PACERONE 200 M200 M1 PO; +TOPROL XL50 MG; +TRAMADOL 50 MG50 MG PO; +VERAPAMIL ER120 MG PO
[2020-08-06 20:30] VITALS: BP 143/66
--- NOTE | 2020-08-07 03:08 | NUR ---
ADMIT PT ADMITTED TO ROOM 506 FROM 2N. VSS, PT VERY DROWSY ANSWERED QUESTIONS BUT SLOW TO RESPOND. SEEMED A LITTLE CONFUSED AT TIMES BUT ANSWERED ALL QUESTIONS APPROPRIATELY. A/OX 4 SKIN C/D/I. LEFT HAND EDEMATOUS AND BRUISED. HAD A BM ON 2 N TODAY BUT NEEDS A STOOL FOR OCCULT BLOOD ALL COLLECTION SUPPLIES IN ROOM PT AWARE HE NEEDS A SAMPLE.MADRID IN PLACE DARK ALIA URINE TO DC THIS AM.
[2020-08-07 05:40] LABS: CALCIUM 7.8 mg/dL (8.5-10.1); CREATININE 3.4 mg/dL (0.7-1.3); HEMOGLOBIN 7.1 gm/dL (14.0-18.0); MCH 30.6 pg (26.0-34.0); MCV 89.9 fL (80.0-100.0); POTASSIUM 3.7 mmol/L (3.5-5.1); RBC 2.33 mil/uL (4.50-6.00); RDW 14.8 % (10.5-14.5); WBC 5.6 thou/uL (4.0-11.0)
[2020-08-07 08:00] VITALS: BP 135/75
--- NOTE | 2020-08-07 10:30 | NUR ---
ASSUMED PT CARE AT 0700. PT RESTING. ASSESSMENT PERFORMED CHARTED. DR MAYFIELD ROUNDED AND PLACED GI CONSULT FOR HBG OF 7.1. BLOOD BANK NOTIFIED AND AWAITING FOR 1 UNIT OF RBCS TO ADMINISTER. WILL CONTINUE TO MONITOR.
--- NOTE | 2020-08-07 10:36 | NUR ---
08/07/20 @1030: Jennifer student RN and Afia Ireland nursing care partner at bedside. Student attempted to place 20G PIV to right wrist x1 unsuccessfully. Pt tolerated well. No bleeding to site noted. Bandaid placed over site. Bedside RN Edwige notified of attempt.
[2020-08-07 13:04] VITALS: BP 127/63; BP 129/68; BP 133/74; BP 152/83
--- NOTE | 2020-08-07 13:22 | NUR ---
PT BLADDER SCANNED, PT HAS 130ML IN BLADDER, DR MAYFIELD AWARE. NO ORDERS GIVEN. PTS BLOOD TRANSFUSION STARTED. VSS. WILL CONTINUE TO MONITOR.
--- NOTE | 2020-08-07 14:56 | NUR ---
chart review. visited pt and zeb earlier today, cm cont to wear face mask and shield during visit. education on dcp and team meeting, asked oh is he dc home today. re-education on dcp and team meeting on his progress with therapy. noted pt lives with , independent prior to hospital. has cane and walker. will cont following as needed for dc needs.
[2020-08-07 19:10] VITALS: BP 135/75
--- NOTE | 2020-08-08 05:56 | NUR ---
ASSESSMENT: PT REMAIN ALERT AND ORIENT TIMES THREE. DENIES PAIN. APPEARS TO BE SOA WHILE RESTING, O2 SATS WERE 94%. PT WAS EDUCATED ON HOW TO USE THE IS WHILE AWAKE. SLOW TO RESPOND AT TIMES. USES URINAL MOST TIMES, DID HAVE 2 ACCIDENTAL SPILLS WITH URINAL. UO ADEQUATE, URINE DARK YELLOW. RIGHT UPPER ARM IV SALINE LOCKED AND INTACT. HEMOCULT STOOL STILL PENDING. SLOW PROGRESS TOWARDS DC GOALS. WILL CONTINUE TO MONITOR.
[2020-08-08 12:26] LABS: HEMATOCRIT 28.9 % (42.0-52.0)
[2020-08-08 12:27] LABS: HEMOGLOBIN 9.5 gm/dL (14.0-18.0)
--- NOTE | 2020-08-08 14:51 | NUR ---
Assumed pt care at 0700. pt was alert and oriented x4. calm and co-operative with care. Assessments completed, VSS. pt uses urinal most times. Had a bowel movement. pt worked with OT. educated pt and about medication. Hemocult stool collected and sent to lab. visiting with pt. denies pain at this time. pt slow to respond. pt has right upper arm IV saline lock. will continue to monitor.
[2020-08-08 19:52] VITALS: BP 145/71
--- NOTE | 2020-08-09 03:14 | NUR ---
ASSUMED PT CARE AT 1900.PT WAS OBSERVED SITTING IN THE RECLINER IN HIS ROOM WATCHING TV AT SHIFT CHANGE.PT WAS LATER HELPED INTO BED.BLE EDEMA NOTED.MEDS WHOLE IN APPLESAUCE,PT BROOKE WELL.PT ENCOURAGED TO USE THE IS IN HIS ROOM WHILE AWAKE.URINAL AT BEDSIDE WITH ADEQUATE DARK YELLOW URINE.PT NPO AT THIS TIME FOR POSSIBLE EGD TODAY.PT SLEEPING ON HIS BED AT THIS TIME.CALL LIGHT WITHIN REACH.
[2020-08-09 05:34] LABS: HEMATOCRIT 25.3 % (42.0-52.0); HEMOGLOBIN 8.7 gm/dL (14.0-18.0); MCH 31.6 pg (26.0-34.0); MCHC 34.6 g/dL (28.0-37.0); MCV 91.2 fL (80.0-100.0); RBC 2.77 mil/uL (4.50-6.00); RDW 14.9 % (10.5-14.5); WBC 6.4 thou/uL (4.0-11.0)
[2020-08-09 06:06] LABS: ALBUMIN 2.3 g/dL (3.4-5.0); CALCIUM 8.2 mg/dL (8.5-10.1); CREATININE 3.1 mg/dL (0.7-1.3); POTASSIUM 4.1 mmol/L (3.5-5.1); TOTAL BILIRUBIN 0.8 mg/dL (0.2-1.0); TOTAL PROTEIN 6.5 g/dL (6.4-8.2)
[2020-08-09 07:15] VITALS: BP 145/74
--- NOTE | 2020-08-09 12:42 | NUR ---
ASSUMED PT CARE THIS AM. PT VSS, A&OX4 WITH CONFUSION NOTED. EGD COMPLETED TODAY. PT ONLY GIVEN PERTINENT MEDS THAT GI NURSE SAID TO GIVE BEFORE PROCEDURE, BUT HAS OTHERWISE REMAINED NPO. BILATERAL LOWER EXTREMITY EDEMA NOTED. USING A URINAL WHEN NEEDED. ON ROOM AIR. NO PAIN NOTED. AT BEDSIDE. UP WITH ASSIST. FALL PRECAUTIONS IN PLACE.
[2020-08-09 13:00] VITALS: BP 145/80
[2020-08-09 19:25] VITALS: BP 140/76
--- NOTE | 2020-08-10 01:05 | NUR ---
PATIENT REQUESTING TO GET READY FOR SLEEP AT 2030, HAS BEEN USING URINAL WITH ONE SPILL SO FAR TONIGHT. PLEASANT, TAKING MEDS WITH APPLESAUCE.
[2020-08-10 07:15] VITALS: BP 142/83
--- NOTE | 2020-08-10 12:03 | NUR ---
Assumed pt care at 7am.Pt in bed resting without c/o.Assessment completed.vss. Pt up in chair for breakfast and lunch.Took meds with apple sauce and well tolerated.Pt exercise with physical therapist after breakfast.Noted bilat lower extremities edema and heell tenderness.Dr Glasgow notified.Heel protectors applied.Received call from pt's , updates given and she said that she will come to see pt later today.No verbal c/o at present.Pt in chair eating lunch now. Fall bundle in place.Will continue to monitor.
[2020-08-10 19:50] VITALS: BP 144/74
--- NOTE | 2020-08-11 01:21 | NUR ---
ASSESSMENT COMPLETED. PT IS ALERT AND ORIENTED. HE IS SOFT SPOKEN AND TAKES TIME TO ANSWER SOME QUESTIONS. HE REQUIRES SBA TO THE BSC. HE CALLS FOR HELP. EDEMA NOTED TO SUKHDEV ELBOWS AND BLE. PT REFUSES TO USE PRAFO BOOTS. LEGS ELEVATED ON PILLOWS. SUKHDEV ELBOWS ALSO ELEVATED. PT DNIES PAIN. HE APPEARS ILL AND WEAK, HE IS HOWEVER ABLE TO PULL HIS PANTS DOWN AND BACK UP WHILE USING BSC.HE IS ON ROOM AIR BUT NOTED TO HAVE SOA WITH ACTIVITY.PT WAS ABLE TO TAKE HS MEDS WITH APPLESAUCE. FALL PREC IN PLACE, CALL LIGHT WITHIN RECH.
[2020-08-11 05:19] LABS: ABSOLUTE NEUTROPHILS 6.3 thou/uL (1.4-8.2); BASOPHILS 0.8 % (0.0-2.0); EOSINOPHILS 2.1 % (0.0-3.0); HEMATOCRIT 23.4 % (42.0-52.0); HEMOGLOBIN 7.8 gm/dL (14.0-18.0); MCH 30.3 pg (26.0-34.0); MCHC 33.3 g/dL (28.0-37.0); MCV 91.1 fL (80.0-100.0); MONOCYTES 9.7 % (1.0-8.0); PLATELET COUNT 153 thou/uL (150-400); POLYS 81.4 % (36.0-66.0); RBC 2.57 mil/uL (4.50-6.00); RDW 15.1 % (10.5-14.5); WBC 7.8 thou/uL (4.0-11.0)
[2020-08-11 05:38] LABS: ALBUMIN 2.2 g/dL (3.4-5.0); CALCIUM 8.2 mg/dL (8.5-10.1); CREATININE 3.1 mg/dL (0.7-1.3); MAGNESIUM 1.9 mg/dL (1.8-2.4); POTASSIUM 4.6 mmol/L (3.5-5.1); TOTAL BILIRUBIN 0.6 mg/dL (0.2-1.0); TOTAL PROTEIN 6.4 g/dL (6.4-8.2)
[2020-08-11 07:38] VITALS: BP 134/80
--- NOTE | 2020-08-11 14:42 | NUR ---
ASSUMED CARE OF PT AT 0715. PT IS A&OX3. HAS SLOW TO RESPOND. IS ON ROOM AIR. IS STABLE. DENIES PAIN. HAS DRY SKIN. EUCERIN CREAM TO BE APPLIED PER DR. HENRY. HAS LEFT SIDED WEAKNESS, BUT IS ABLE TO MOVE SELF IN BED. REFUSES TURNS. PT EDUCATION PROVIDED REGARDING THE IMPORTANCE OF PREVENTING SKIN BREAKDOWN. IS UP WITH 1 ASSIST, GB, TO BSC. FALL PRECAUTIONS & HOURLY ROUNDING CONTINUED THIS SHIFT. PT HAS BILAT LE EDEMA. ELEVATED & HEELS OFF LOADED WITH PILLOWS. PT REFUSES TO WEAR PROTECTIVE BOOTS. LABS & VITALS REVIEWED. PT IS CURRENTLY RESTING COMFORTABLY IN BED. CALL LIGHT WITHIN REACH. WILL CONTINUE TO MONITOR. SPOUSE AT BEDSIDE.
[2020-08-11 19:08] VITALS: BP 128/77
--- NOTE | 2020-08-12 02:45 | NUR ---
ASSUMED CARE APPROX 1900 EVENING 08/11. PT LYING IN BED WITH HEAD OF BED ELEVATED AT CHANGE OF SHIFT. PT DOZING OFF AND ON BEFORE FALLING ASLEEP AT HS. PT TOOK HS MED WITH APPLESAUCE TOLERATING WELL. PT VOIDING PER URINAL. PT REFUSED PRAFO BOOTS AND LEGS ELEVATED WITH PILLOW. BED ALARM ON AND CALL LIGHT IN REACH. WILL CONTINUE TO MONITOR.
[2020-08-12 05:35] LABS: HEMATOCRIT 23.2 % (42.0-52.0); HEMOGLOBIN 7.8 gm/dL (14.0-18.0)
[2020-08-12 08:00] VITALS: BP 132/63
--- NOTE | 2020-08-12 10:59 | NUR ---
ASSUMED CARE AT 0700. SLEPT FAIR. ALERT AND ORIENTATED. FLAT AFFECT, FOLLOWS COMMANDS. ON ROOM AIR. HAD A LARGE BM THIS MORNING AND NO REPORTED BLOOD IN STOOL. SEEMS SHORT OF AIR WITH EXERTION AND COMFORTABLE AT REST. APPETITE FAIRLY GOOD. PER CARDIOLOGY/GI, OK TO RESUME ELIQUIS. TOOK ALL MEDS WITHOUT ANY DIFFICULTY WITH APPLE SAUCE. PARTICIPATES WITH THERAPY. SPOUSE AT BEDSIDE. CONCERNS AND QUESTIONS ANSWERED. CALL LIGHT WITHIN REACH.
[2020-08-12 19:06] VITALS: BP 144/75
--- NOTE | 2020-08-12 21:24 | NUR ---
ASSESSED AT START OF SHIFT. PT RESTING IN BED. VOIDS VIA URINAL. INCONTINENT BRIEF ON. EVENING MEDS GIVEN ONE AT A TIME WITH APPLE SAUCE. 1+ EDEMA ON SUKHDEV LOWER EXT NOTED ELEVATED LEGS. FALL PREC IN PLACE AND NO FURTHER SIGNS OF DISCOMFORT. WILL CONT TO MONITOR.
[2020-08-13 07:43] VITALS: BP 131/77
[2020-08-13 07:49] VITALS: BP 131/77
--- NOTE | 2020-08-13 12:47 | NUR ---
team meeting, reccommendation: assist with medication and finances. inc family help at home if possible. dc 08/29/20. [facility](pt, ot, st, nursing and sw). diet mech soft soild with thin liquids.
[2020-08-13 13:39] VITALS: BP 128/74
--- NOTE | 2020-08-13 18:03 | NUR ---
PT ALERT AND ORIENTED TIMES FOUR WITH FLAT AFFECT. VSS. PT DENIES PAIN/SOA. PT WORKED WELL WITH PT/OT TODAY. PT TOLERATES MEDS AND MEALS. PT AT BEDSIDE FOR MOST OF THE DAY. PT SLOWLY PROGRESSING TOWRADS POC GOALS.
[2020-08-13 19:05] VITALS: BP 148/85
[2020-08-13 21:26] VITALS: BP 151/84
--- NOTE | 2020-08-13 22:00 | NUR ---
TRYING TO USE URINAL, BUT INCONTINENT OF URINE AT 0, DIFFICULTY COMMUNICATING NEEDS DUE TO BEING SHORT OF AIR. O2 SAT = 89 ON ROOM AIR, 94% ON 2 LITERS AND PATIENT REPORTS FEELING MUCH BETTER. RECOGNIZES INCENTIVE SPIROMETER AND IS FAMILIAR WITH ITS USE, BUT IS ONLY ABLE TO TAKE IT TO [address] CB SOUSA PRACTICING UROLOGIST INFORMED OF ABOVE, AGREES WITH O2 AND WILL ORDER LABS AND CXR.
[2020-08-13 23:12] LABS: HEMATOCRIT 23.4 % (42.0-52.0); HEMOGLOBIN 7.7 gm/dL (14.0-18.0); MCH 29.9 pg (26.0-34.0); MCHC 33.1 g/dL (28.0-37.0); MCV 90.3 fL (80.0-100.0); RBC 2.59 mil/uL (4.50-6.00); RDW 14.8 % (10.5-14.5); WBC 8.9 thou/uL (4.0-11.0)
--- NOTE | 2020-08-14 00:26 | NUR ---
DR SOUSA HAS REVIEWED CHART, LABS, AND CXR AND WILL HOLD PATIENT'S AMIODARONE DOSE AND GIVE PREDNISONE UNTIL IT GETS OUT OF HIS SYSTEM. SHE WOULD LIKE US TO KEEP AN EYE ON HIM AND CALL IF WE NOTICE IRREGULAR HEARTRATE ESPECIALLY IF TACHYCARDIC, AND TO CALL FOR DUONEB BREATHING TREATMENT ONLY IF HE GETS WHEEZY. IN THE MEANTIME, KEEP HIM ON 2 LITERS TO MAINTAIN SATS IN THE 90s. ABOVE EXPLAINED TO PATIENT, PLUS HE IS BEING GIVEN A LITTLE EXTRA APPLESAUCE AND WATER WITH HIS PREDNISONE DOSE, SINCE SOME PATIENTS DON'T LIKE PREDNISONE ON AN EMPTY STOMACH.
[2020-08-14 05:51] LABS: ABSOLUTE NEUTROPHILS 8.2 thou/uL (1.4-8.2); BASOPHILS 0.3 % (0.0-2.0); EOSINOPHILS 0.1 % (0.0-3.0); HEMATOCRIT 23.7 % (42.0-52.0); HEMOGLOBIN 8.1 gm/dL (14.0-18.0); LYMPHOCYTES 1.6 % (24.0-44.0); MCH 30.7 pg (26.0-34.0); MCV 90.2 fL (80.0-100.0); MONOCYTES 2.4 % (1.0-8.0); PLATELET COUNT 176 thou/uL (150-400); POLYS 95.6 % (36.0-66.0); RBC 2.63 mil/uL (4.50-6.00); RDW 14.4 % (10.5-14.5); WBC 8.6 thou/uL (4.0-11.0)
[2020-08-14 06:27] LABS: CALCIUM 8.7 mg/dL (8.5-10.1); CREATININE 3.2 mg/dL (0.7-1.3); POTASSIUM 5.2 mmol/L (3.5-5.1)
--- NOTE | 2020-08-14 08:08 | NUR ---
ASSUMED CARE AT 0700. PATIENT IS ALERT AND ORIENTED X4. PATIENT HAS LEFT SIDED WEAKNESS. LUNGS ARE COARSE AND DEMINISHED IN THE LEFT LOWER LOBE. ENCOURAGED I.S. PATIENT CONTINUES ON 02 AT 2L PER N/C. PATIENT CONTNUES ON RESPIRATORY TX. ABD IS SOFT WITH BSX4. PATIENT IS VOIDING ALIA COLORED URINE. PATIENT HAS L.E. EDEMA BILATERERALLY. FALL AND SAFETY PROTOCOLS IN PLACE. DENIES PAIN AT THIS TIME. CONTINUES TO PROGRESS TOWARDS D/C GOALS. WILL CONTINUE TO MONITER
[2020-08-14 08:13] VITALS: BP 128/84
--- NOTE | 2020-08-14 14:23 | NUR ---
PT ON SERVICE WITH [facility] PRIOR TO ADMISSION FAXED RESUMPTION OF CARE REFERRAL TO [facility] SPOKE WITH ZACK IN INTAKE THEY WILL RESUME CARE AT DC 08/29.
[2020-08-14 14:24] VITALS: BP 128/84
[2020-08-14 19:17] VITALS: BP 140/83
--- NOTE | 2020-08-15 01:39 | NUR ---
BREATHING EASIER AND MORE RESPONSIVE COMPARED TO 24 HOURS AGO. USING URINAL AND TURNING SELF IN BED. FOR NOW, HE IS WEARING O2 FOR COMFORT. ADMITS TO HAVING POOR APPETITE TODAY
[2020-08-15 05:51] LABS: CALCIUM 8.6 mg/dL (8.5-10.1); CREATININE 3.4 mg/dL (0.7-1.3); MAGNESIUM 2.1 mg/dL (1.8-2.4)
[2020-08-15 05:52] LABS: BASOPHILS 0.2 % (0.0-2.0); EOSINOPHILS 0.3 % (0.0-3.0); HEMATOCRIT 23.9 % (42.0-52.0); HEMOGLOBIN 7.9 gm/dL (14.0-18.0); LYMPHOCYTES 4.5 % (24.0-44.0); MCH 30.4 pg (26.0-34.0); MCHC 33.3 g/dL (28.0-37.0); MCV 91.4 fL (80.0-100.0); MONOCYTES 9.3 % (1.0-8.0); PLATELET COUNT 188 thou/uL (150-400); POLYS 85.7 % (36.0-66.0); RBC 2.61 mil/uL (4.50-6.00); RDW 14.6 % (10.5-14.5); WBC 9.4 thou/uL (4.0-11.0)
[2020-08-15 08:24] VITALS: BP 135/74
--- NOTE | 2020-08-15 11:35 | NUR ---
ASSUMED CARE AT 0700. SLEPT FAIR. ALERT AND ORIENTATED. WEAK AND FLAT AFFECT. DENIES ANY PAIN. ON 2L 02 AND SAT 99%. GETS SHORT OF AIR WITH EXERTION. HAD A SWALLOW STUDY, OK TO CONT WITH REGULAR DIET AND THIN LIQ AND TO REMIND PT TO EAT SMALL BITES AND DRINK IN BETWEEN BITES. TOLERATED HIS MED WITH APPLE SAUCE. BLE EDEMA 3+ PITTING WITH WOODY HOSE REAPPLIED AND LEGS ELEVATED. ATE 50% OF HIS BREAKFAST. APPETITE HAS BEEN POOR THE PAST FEW DAYS WITH 30-35% AND [facility]. PARTICIPATE WITH THERAPY MUCH TOLERATED. CONT TO ENC AMBULATION/ACTIVITY AND USING IS. ABLE TO DEMONSTRATE ONLY 500ML
[2020-08-15 20:00] VITALS: BP 138/74
--- NOTE | 2020-08-16 02:36 | NUR ---
assumed care approx 1900 evening 08/15. pt sitting up in recliner at change of shift. assisted pt into bed and given hs meds with applesauce tolerating well. pt voiding per urinal. pt appears to be sleeping soundly with hourly rounding checks. bed alarm on and call light in reach. will continue to monitor.
[2020-08-16 07:23] VITALS: BP 137/72
--- NOTE | 2020-08-16 11:37 | NUR ---
ASSUMED CARE AT 0700. SLEPT FAIRLY WELL. ALERT AND ORIENTATED X 3. FLAT AFFECT. GETS SHORT OF AIR WITH EXERTION AND SPEECH. ON 2L AND SAT AT 97% AT REST. PT REPORTED NOSE BLEED AND SALINE NASAL SPRAY ADMINISTERED TO BOTH NOSTRILS. 02 WEAN TO 1L AT REST AND SATS ABOVE 92%. ATE WELL ALMOST 95% OF HIS BREAKFAST TODAY. LUNGS SOUND DIMINISHED. BLE PITTING EDEMA, WOODY HOSE REAPPLIED AND LASIX 20MG GIVEN TODAY. GETS FATIGUE WITH THERAPY. PT ENC TO WORK ON IS AND ABLE TO DO CLOSE TO 1000ML. EDUCATION GIVEN TO PT AND SPOUSE TO DO 10X EVERY 2-3 HOURS WA.
[2020-08-16 20:00] VITALS: BP 148/87
--- NOTE | 2020-08-17 03:51 | NUR ---
assumed care approx 1900 evening 08/16. pt lying in bed with head of bed elevated resting. 02 at 1L per n/c. pt voiding per urinal. pt took meds with applesauce tolerating well. pt appears to be sleeping soundly. bed alarm on and call light in reach. will continue to monitor.
[2020-08-17 04:55] LABS: BASOPHILS 0.6 % (0.0-2.0); EOSINOPHILS 2.1 % (0.0-3.0); HEMATOCRIT 22.3 % (42.0-52.0); HEMOGLOBIN 7.5 gm/dL (14.0-18.0); LYMPHOCYTES 7.8 % (24.0-44.0); MCH 30.3 pg (26.0-34.0); MCHC 33.8 g/dL (28.0-37.0); MCV 89.7 fL (80.0-100.0); MONOCYTES 9.8 % (1.0-8.0); PLATELET COUNT 178 thou/uL (150-400); POLYS 79.7 % (36.0-66.0); RBC 2.48 mil/uL (4.50-6.00); RDW 14.4 % (10.5-14.5); WBC 6.3 thou/uL (4.0-11.0)
[2020-08-17 05:32] LABS: CREATININE 3.1 mg/dL (0.7-1.3); POTASSIUM 4.3 mmol/L (3.5-5.1)
[2020-08-17 06:30] VITALS: BP 139/79
--- NOTE | 2020-08-17 07:53 | NUR ---
ASSUMED CARE AT 0700. PATIENT IS ALERT AND ORIENTED X4, BUT FORGETFUL. PATIENT JACOBS'S, POTTERY DECORATOR ARE EQUAL. LUNGS ARE CLEAR. ABD IS SOFT WITH BSX4. PATIENT IS VOIDING PER URINAL. FALL AND SAFETY PROTOCOLS IN PLACE. DENIES PAIN AT THIS TIME. CONTINUES TO PROGRESS TOWARDS D/C GOALS. WILL CONTINUE TO MONITER.
--- NOTE | 2020-08-17 08:13 | NUR ---
ASSUMED CARE AT 0700. PATIENT IS ALERT AND ORIENTED, FORGETFUL. PATIENT HAS LEFT SIDED WEAKNESS. LUNGS ARE COARSE AND DEMINISHED. 02 AT 1L PER N/C. PATIENT CONTINUES ON RESPIRATORY TX. PATIENT HAS BRUISES ON HIS EXTREMITIES. PATIENT HAS 2+ EDEMA IN HIS LOWER EXTREMITIES. FALL AND SAFETY PROTOCOLS IN PLACE. CONTINUES TO PROGESS TOWARDS D/C GOALS. WILL CONTINUE TO MONITER.
[2020-08-17 19:14] VITALS: BP 135/62
--- NOTE | 2020-08-18 02:17 | NUR ---
NO C/O SOA, O2 1L PNC. TOLERATING MEDS WITH APPLESAUCE AND TAKING SIPS OF WATER. USING URINAL. TEDs OFF, YELLOW SOCKS BACK ON PER PATIENT REQUEST. HEELS ARE PINK AND ELEVATED WITH PILLOWS UNDER CALVES, BLE ARE EDEMATOUS. FLAT AFFECT
[2020-08-18 07:30] VITALS: BP 136/73
--- NOTE | 2020-08-18 09:22 | NUR ---
ASSUMED CARE OF PT AT 0715. PT IS A&OX4. IS STABLE. DENIES PAIN. IS ON 1.5L OF O2/NC. IS UP WITH 1 ASSIST, GB, WALKER. FALL PRECAUTIONS & HOURLY ROUNDING CONTINUED THIS SHIFT. PT IS ABLE TO REPOSITION SELF IN BED. HAS BILAT LE EDEMA. LE ELEVATED WHILE UP TO CHAIR. LABS & VTIALS REVIEWED. WILL CONTINUE TO MONITOR.
[2020-08-18 19:17] VITALS: BP 140/82
--- NOTE | 2020-08-19 00:46 | NUR ---
APPRECIATES OXYGEN PER NASAL CANNULA, AND OUR EFFORTS TO KEEP IT IN PLACE WHEN HE REPOSITIONS HIMSELF. USING NOSESPRAYS TO AVOID NOSEBLEEDS. USING URINAL CONTINENTLY. TOLERATING MEDS IN APPLESAUCE AND TAKING SIPS OF WATER
[2020-08-19 08:19] VITALS: BP 153/88
--- NOTE | 2020-08-19 11:29 | NUR ---
ASSUMED CARE AT 0700. SLEPT FAIR. ALERT AND ORIENTATED X 3. FLAT AFFECT. ABLE TO VOICE NEEDS AND FOLLOW COMMANDS. SAT 98% ON ROOM AIR. FATIGUE WITH ACTIVITY AND SAT MAINTAINED ABOVE 92%. NO COMPLAINS OF NOSE BLEED, CHOI AFRIN NASAL SPRAY GIVEN. TOLERATED ORAL MEDS WITH APPLE SAUCE. ATE WELL FOR BREAKFAST AND COMPLETED 75%. CXR DONE TODAY AND SHOWED IMPROVED CHF WITH DIMINISHED SUKHDEV INTERSTITIAL PULM EDEMA. PT TOLERATED ROOM AIR. UP IN CHAIR WITH WOODY HOSE ON AND LEGS ELEVATED. PARTICIPATING WITH THERAPY. PLAN FOR DC HOME ON 08/29/20.
[2020-08-19 19:14] VITALS: BP 142/79
--- NOTE | 2020-08-20 02:27 | NUR ---
PT CARE ASSUMED WITH PT IN CHAIR WATCHING TV.PT IS A/O X4.PT IS UP WITH X1 ASSIST WITH GAT BELT AND WALKER.PT TAKES MEDS IN APPLE SAUCE WITH NO CONCERNS.PT USES A URINAL .PT APPEAR TO BE IN NO ACUTE DISTRESS.WILL CONTINUE TO MONITOR
[2020-08-20 05:40] LABS: HEMATOCRIT 20.5 % (42.0-52.0); MCH 30.4 pg (26.0-34.0); MCV 89.4 fL (80.0-100.0); RBC 2.29 mil/uL (4.50-6.00); RDW 14.8 % (10.5-14.5); WBC 4.6 thou/uL (4.0-11.0)
[2020-08-20 08:12] VITALS: BP 143/85
--- NOTE | 2020-08-20 09:44 | HC ---
[facility] [place] [address] CONSULTATION Name: ANNA TORRES Room #: 506-1 ADM IN M.R.#: [id number] Admission: 08/06/20 Attend Phys: Pepe Brannon MD Discharge: Date of : 36 Report #: [id number] THIS REPORT FOR: cc: Nando De Santiago K. Steven DO Deutch,Omar Franklin. PhD ~ DATE OF SERVICE: 08/10/2020 NEUROBEHAVIORAL STATUS EXAM ATTENDING PHYSICIAN: Pepe Brannon MD POISON INFORMATION SPECIALIST: Omar Gee, PhD CLINICAL PRESENTATION: The patient is an 80-year-old male admitted to the rehabilitation unit for a comprehensive inpatient rehabilitation program. He was initially admitted to the [facility] on 07/29/2020 with generalized weakness and falls. He was found to have bradycardia with a heart rate in the 40s. The patient was diagnosed with a urinary tract infection and antibiotics initiated. Acute mental status changes were noted and he became aphasic with right-sided weakness. A stat MRI was obtained and revealed multiple embolic infarctions in the right frontotemporal and occipital lobes. The patient was subsequently given TPA and a significant improvement was noted. 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 A complete description of his medical condition and history along with medications can be found in his medical record. Neuropsychological consultation was requested to provide assistance in the assessment of cognitive and emotional status and provide recommendations and services. Prior to this most recent admission, the patient was living at home with the assistance of his . He had discontinued driving about 2 years ago because of concern regarding safety. The patient has 2 children. 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 His is reported to have been providing assistance with aspects of activities of daily living including management of medication, bills along with helping him with bathing, grooming, and dressing. The decline in cognition has about a [facility] [address] [place] [address] CONSULTATION Name: ANNA TORRES Room #: 506-1 [facility] IN [facility].#: [id number] Admission: 08/06/20 Attend Phys: Pepe Brannon MD Discharge: Date of : 36 Report #: [id number] 2-to-3-year duration. TECHNIQUES UTILIZED: Clinical interview, review of medical records, staff consultation and behavioral observation, mini mental status exam 2 standard version, clock drawing, and family interview -- . EXAMINATION FINDINGS: The patient was alert and cooperative with the assessment. He had significant difficulty in describing events surrounding his admission as well as the reason for his hospitalization. It was necessary for his to provide a description of his recent history. The patient does not report difficulty with memory, word finding, anxiety, or appetite. Symptoms reported include sleep, depressed mood along with irritability. The patient appears to lack insight into the extent of his cognitive deficits. His performance on the MMSE 2 brief version was within the mild range of impairment with a raw score of 13/16, which is a T score 36. The patient was 3/3 for initial registration, 4/5 for orientation to time, 4/[address], and 2/3 for immediate recall of 3 items after a brief time delay and distraction. His performance on the MMSE 2 standard version was 22/30, which is a T score of 28 and percentile rank of 1 suggesting [id number] deficits. He was 1/5 for serial sevens, 2/2 for naming, 1/1 for repetition, 3/3 for auditory comprehension. He could read and follow a single command and write a sentence. The patient was unable to draw simple geometric design. Handwriting was micrographic with evidence of tremor. The patient had difficulty with clock drawing. Visual spatial organization and impaired hand placement were noted suggesting frontal - executive deficits. The patient is presenting with at least a 2-to-3-year history of cognitive decline that has increased significantly in the last 3 months and more notable since multiple vascular events. He is alert and oriented. Deficits are primarily in immediate recall and executive functioning along with sustained concentration. DIAGNOSTIC IMPRESSION: Major neurocognitive disorder (dementia), possibly due to vascular disease and multiple medical etiology -- with increased irritability, extent to be determined, likely of moderate severity. Unspecified depressive disorder. RECOMMENDATIONS: The patient would benefit from a more thorough [facility] [address] [place] [address] CONSULTATION Name: ANNA TORRES Room #: 506-1 [facility] IN M.R.#: [id number] Admission: 08/06/20 Attend Phys: Pepe Brannon MD Discharge: Date of : 36 Report #: [id number] neuropsychological assessment following his discharge to clarify cognitive status. Continued assistance will be necessary for him to maintain safety in the home, which would include medication, finances, and nutrition. His family and the specifically will need to attend appointments with healthcare providers. Speech therapy will be of benefit for both the improvement of verbal fluency along with strategies for concentration and executive functioning. Thank you very much for allowing me to provide the consultation on this patient. <ELECTRONICALLY SIGNED> By: Omar Gee, PhD 08/20/20 [id number] Omar Gee, PhD /nt
[2020-08-20 10:46] LABS: CREATININE 2.8 mg/dL (0.7-1.3); POTASSIUM 4.2 mmol/L (3.5-5.1)
--- NOTE | 2020-08-20 11:00 | NUR ---
ASSUMED CARE AT 0700. SLEPT WELL. ALERT AND ORIENTATED. FLAT AFFECT, FOLLOW COMMNANDS WELL. DENIES ANY PAIN. LUNGS SOUND CLEAR AND DIM AT THE BASES. PT ENC AND EDUCATED TO USE IS AND ABLE TO DO UP TO 750ML. ON ROOM AIR AND SAT AT 98%. GETS FATIGUED WITH EXERTION AND CALMS DOWN WITH REST. BLE EDEMA WITH WOODY HOSE APPLIED. LEGS ELEVATED. HGB 7.0 TODAY, SPOKE TO MIGUEL GREEN WITH GI, WILL REPEAT CBC TOMORROW. NO OVERT BLEEDING NOTED. NO HYPOTENSION, DIURESING ADEQ. REFUSED HIS MIRALAX THIS MORNING. LAST BM WAS ON 08/19. PARTICIPATING WITH WITH THERAPY. PROJECTED DC HOME ON 08/29/20.
--- NOTE | 2020-08-20 13:38 | NUR ---
team meeting, reccomendation: invole with therapy when she is here. need to have daughter or son to assist with medication and bills. will need assist with pills and bills. more awear of insight. dc 08/29 home with [facility] ( pt, ot, st, nursing and sw)
--- NOTE | 2020-08-20 15:05 | H ---
[facility] [place] [address] HISTORY AND PHYSICAL Name: ANNA TORRES Room #: 506-1 ADM IN M.R.#: [id number] Admission: 08/06/20 Attend Phys: Pepe Brannon MD Discharge: Date of : 38 Report #: [id number] THIS REPORT FOR: cc: Nando De Santiago K. Steven DO Smithson, David G. MD ~ DATE OF SERVICE: 08/07/2020 HISTORY OF PRESENT ILLNESS: The patient is an 80-year-old white male originally admitted to [facility] on 07/29/2000 with generalized weakness and falls. He was found to have bradycardia with a heart rate in the 40s and Cardiology was consulted. He also was diagnosed with a urinary tract infection and antibiotics were started. He had acute mental status changes, became aphasic with right-sided weakness and a stat MRI was obtained and revealed multiple embolic infarcts, right frontal, temporal, occipital lobes. He was given TPA. He has had significant improvement post-TPA. Speech has improved and he was noted to be able to move all 4 extremities. He was followed for acute renal insufficiency. He had a Shah in place for urinary retention. He was felt to be medically ready and has now been admitted for acute in-hospital inpatient rehabilitation. PAST MEDICAL HISTORY: Prior medical history includes aortic stenosis, status post TAVR in 2019; coronary artery disease, status post stent in 2019; diastolic heart failure, atrial fibrillation with atrial flutter, hypertension, hyperlipidemia, chronic kidney disease, iron deficiency anemia, and gout. ALLERGIES: No known drug allergies. MEDICATIONS: Please see the full medication listing. SOCIAL HISTORY: The patient has been living in a third floor apartment with elevator access with his . provides IADLs. The patient reports needing help with bathing, but does not help him because she does not want to for patient. Otherwise, he was able to feed and toilet himself. He used a front-wheeled walker. He is right handed. FAMILY HISTORY: Not pertinent. REVIEW OF SYSTEMS: No headache, dizziness. No chest pain, shortness of breath. No bowel problems. History of urinary retention with Shah catheter. No focal extremity pain complaints. Review of systems was negative as noted above. PHYSICAL EXAMINATION: GENERAL: The patient is a pleasant 80-year-old white [place] [address] HISTORY AND PHYSICAL Name: ANNA TORRES Room #: 506-1 [facility] IN .R.#: [id number] Admission: 08/06/20 Attend Phys: Pepe Brannon MD Discharge: Date of : 38 Report #: [id number] VITAL SIGNS: Temperature 98.3, pulse 96, respirations 24, blood pressure 143/66. The patient is alert. NEUROLOGIC: Cranial nerves are grossly intact. Facies are symmetric. He is able to follow basic 1-step command. Some latency to his responses. HEENT: Benign. CHEST: Sounded clear to auscultation. CARDIAC: Regular rate and rhythm. ABDOMEN: Bowel sounds positive, nontender. GENITOURINARY AND RECTAL: Deferred. EXTREMITIES: He does have functional range of motion of both upper extremities. Contact Lens Blocker weak, but grossly equal. Upper extremity strength is probably a grade 3+ to 4-/5. Tone appeared to be intact. Coordination with some decreased left upper extremity. In his lower extremities, there is no calf swelling. No pretibial edema. Strength is probably a grade 3+ to 4-/5. Tone appeared to be intact. No clonus. He is max assist, bed to chair transfers, mod assist 15 feet with a front-wheeled walker. He does have decreased coordination. He does have some word finding problems with further discussion. ASSESSMENT: An 80-year-old white male with the following problem list: 1. Acute right brain cerebrovascular accident involving frontal, temporal, occipital lobes, status post TPA, 07/31/2020. 2. Left-sided weakness, which has improved. 3. Some aphasia with word finding problems. 4. Initial bradycardia. 5. Sepsis with lactic acidosis secondary to urinary tract infection. 6. Acute renal insufficiency superimposed on chronic kidney disease, stage 4. 7. History of atrial fibrillation/atrial flutter. 8. Aortic stenosis, status post transcatheter aortic valve replacement, 12/2019. 9. Coronary artery disease, status post stent to the left anterior descending artery, 11/2019. 10. Hypertension. 11. Hyperlipidemia. 12. Mild thrombocytopenia. 13. Iron deficiency anemia. PLAN: The patient has been admitted for acute in-hospital inpatient rehabilitation. Please see the patient's previous and current functional status. As far as risk of complications, the patient has multiple medical comorbidities as noted above. Initial plan of care involves the interdisciplinary acute inpatient rehabilitation program. Measurable functional goals would be for the patient to become modified independent with transfers, mobility, ADLs, cognition, communication, so that he can return back to the home setting. Prognosis is reasonably good with estimated length of stay probably at [facility] [address] [place] [address] HISTORY AND PHYSICAL Name: ANNA TORRES Room #: 506-1 ADM IN M.R.#: [id number] Admission: 08/06/20 Attend Phys: Pepe Brannon MD Discharge: Date of : 38 Report #: [id number] least 2-3 weeks pending progress. Potential barriers would include his multiple medical comorbidities and decreased functional status. <ELECTRONICALLY SIGNED> By: Pepe Brannon MD 08/20/20 1505 [id number] Pepe Brannon MD /nt
--- NOTE | 2020-08-20 15:05 | PLAN ---
[facility] [place] [address] REHAB UNIT PLAN OF CARE Name: ANNA TORRES Room #: 506-1 ADM IN M.R.#: [id number] Admission: 08/06/20 Attend Phys: Pepe Brannon MD Discharge: Date of : 38 Report #: [id number] THIS REPORT FOR: cc: Nando De Santiago K. Steven DO Smithson, David G. MD ~ DATE OF SERVICE: 08/09/2020 PROGRESS NOTE/OVERALL PLAN OF CARE SUBJECTIVE: The patient was seen back today in followup. Please see the progress note/documentation by Jena Chahal. I agree with the documentation as noted. He was in no distress. Last recorded temperature 36.9, pulse 92, respirations 16, blood pressure 145/74. He does have significant memory deficits. Gastroenterology has been involved with his anemia and he is to undergo an EGD today. The patient has been moderate assistance with sit to stand transfers, ambulating a short distance approximately 50 feet, mod assist with a front-wheeled walker. He needs moderate assistance with bathing and is dependent with lower extremity dressing. He does have the severe cognitive deficits. ASSESSMENT: 1. 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 2. Acute renal insufficiency superimposed on chronic kidney disease stage 4. 3. Urinary tract infection with lactic acidosis. 4. History of urinary retention, resolved. 5. Aortic stenosis, status post TAVR in 2019. 6. Congestive heart failure. 7. History of hypertension, hyperlipidemia, atrial flutter. 8. History of gout. PLAN: The overall plan of care is based on the preadmission screen and information garnered from therapy assessments. 1. Estimated length of stay is probably at least 2-3 weeks. 2. Medical prognosis is reasonably good. 3. Anticipated interventions includes the interdisciplinary acute inpatient rehabilitation program. 4. Anticipated functional outcomes would be for the patient to improve to become ambulatory again with a walker and to improve as far as his ADLs and cognition. 5. Discharge destination would be to hopefully return back home with his . 6. Expected therapy by discipline includes PT, OT and speech 1 hour per day each five days a week throughout the duration of the acute inpatient rehabilitation program. [address] [address] REHAB UNIT PLAN OF CARE Name: ANNA TORRES Room #: 506-1 ADM IN .R.#: [id number] Admission: 08/06/20 Attend Phys: Pepe Brannon MD Discharge: Date of : 38 Report #: [id number] The patient's prognosis for significant practical improvement within a reasonable period of time appears good. Given the patient's complex medical condition and risk of further medical complication, rehabilitation services could not be safely provided at a lower level of care such as a fpc facility. <ELECTRONICALLY SIGNED> By: Pepe Brannon MD 08/20/20 1505 [id number] Pepe Brannon MD /sebas
[2020-08-20 19:19] VITALS: BP 130/63
--- NOTE | 2020-08-21 00:26 | NUR ---
assumed care approx 1899 evening 08/20. pt lying in bed with head of bed elevated dozing off and on. pt voiding per urinal. pt on room air, denied shortness of breath. pt took hs meds with applesauce tolerating well. pt appears to be sleeping soundly. bed alarm on and call light in reach. will continue to monitor.
[2020-08-21 05:46] LABS: HEMATOCRIT 22.6 % (42.0-52.0); HEMOGLOBIN 7.5 gm/dL (14.0-18.0); MCH 29.8 pg (26.0-34.0); MCHC 33.1 g/dL (28.0-37.0); MCV 89.9 fL (80.0-100.0); RBC 2.51 mil/uL (4.50-6.00); RDW 14.8 % (10.5-14.5); WBC 4.8 thou/uL (4.0-11.0)
[2020-08-21 07:05] VITALS: BP 140/85
[2020-08-21 08:43] LABS: MAGNESIUM 1.9 mg/dL (1.8-2.4); POTASSIUM 4.2 mmol/L (3.5-5.1)
--- NOTE | 2020-08-21 09:10 | NUR ---
ASSUMED CARE AT 0700. PATIENT IS ALERT AND ORIENTED X4. PATIENT HAS LEFT SIDED WEAKNESS. PATIENT LUNGS ARE COARSE AND DEMINISHED. 02 SAT IS 96% N R.A. HIS ABD IS SOFT WITH BSX4. PATIENT IS UP IN W/C WITH ASSIST OF 1 STAFF AND GAIT BELT FOR BREAKFAST. PATIENT HAS 2+ L.E. EDEMA. PATIENT WOODY HOSE ON. FALL AND SAFETY PROTOCOLS IN PLACE. DENIES PAIN AT THIS TIME. CONTINUES TO PROGRESS SLOWLY TOWARDS D/C GOALS. WILL CONTINUE TO MONITER.
--- NOTE | 2020-08-21 10:55 | NUR ---
bedside nurse called for updates on team meeting, zeb here and cm visited with her via phone call. educated on increased family support for pt and at home. educated on daughter and son assist with pills and bills. she final said i can call daughter tomas [phone], but she has been helping ray and manage medication before here. zeb will work with therapy when she here.
[2020-08-21 19:51] VITALS: BP 129/68
--- NOTE | 2020-08-22 03:01 | NUR ---
assumed pt care at change, awake, alert and oriented, denies pain or sob, remains on room air, vital signs stable, assessmesnts as charted, meds given as per mar, voids per urinal, frequent rounding, sleeping, will continue to monitor and follow poc
[2020-08-22 08:16] VITALS: BP 124/56
--- NOTE | 2020-08-22 12:12 | NUR ---
ASSUMED CARE AT 0700. SLEPT FAIR. ALERT AND ORIENTATED X 3. DENIES ANY PAIN. DOES GET SHORT OR AIR WITH EXERTION. SAT 97% ON ROOM AIR AND COMFORTABLE AT REST. SKIN IS THIN AND FRAGILE AND BLEEDS EASILY SEC TO ELIQUIS. HE REPORTED YESTERDAY HE HIT HIS HAND ON THE TOILET AND A BLEED ON HIS R HAND BETWEEN THUMB AND INDEX FINGER. PRESSURE APPLIED AND MUPILEX APPLIED. APPETITE GOOD, HAD A SMALL BM TODAY. BLE EDEMA, WOODY HOSE REAPPLIED AND LEGS ELEVATED. PARTICIPATED WITH THERAPY AND PROGRESSING TOWARDS GOAL. PLAN FOR DC HOME WITH HH ON 08/29/20.
--- NOTE | 2020-08-22 14:45 | NUR ---
cm called number zeb provided for their daughter tomas, - wrong number. cm spoke with ray, and zeb not here today. cm called son faiza, left message requested a call back.
[2020-08-22 19:18] VITALS: BP 134/77
--- NOTE | 2020-08-23 02:13 | NUR ---
assumed care approx 1899 evening 08/22. pt lying in bed with head of bed elevated. pt voiding per urinal. pt took hs meds with applesauce tolerating well. pt appears to be sleeping soundly. bed alarm on and call light in reach. will continue to monitor.
[2020-08-23 07:15] VITALS: BP 149/90
--- NOTE | 2020-08-23 13:27 | NUR ---
ASSUMED CARE at 0700 THIS MORNING. PT. IN HIS ROOM. COOPERATIVE WITH MEDS/MEALS. WORKING WELL WITH OT/RT. A&OX4. AFFECT FLAT. DOES C/O SOA UPON EXERTION. HAS LEFT SIDDED WEAKNESS. RT. HAND HAS DRESSING AFTER CUT TO HAND. DRESSING IS DRY. WENT TO DARION WITH HIS FOR COMMUNION TODAY. WILL CONTINUE TO MONITOR.
[2020-08-23 20:00] VITALS: BP 152/76
--- NOTE | 2020-08-24 00:23 | NUR ---
assumed care approx 0 evening 08/23. pt lying in bed at change of shift stated he was tired. pt assisted with repositioning in bed and lower legs in prafo boots. pt voiding per urinal. pt took hs meds with applesauce tolerating well. bed alarm on and call light in reach. will continue to monitor.
[2020-08-24 07:45] VITALS: BP 135/84
--- NOTE | 2020-08-24 10:05 | NUR ---
ASSUMED CARE AT 0700. PATIENT IS ALERT AND ORIENTED X4. PATIENT HAS LEFT SIDED WEAKNESS. LUNGS ARE COARSE AND DEMINISHED. ENCOURAGED I.S. ABD IS SOFT WITH BSX4. UP TO THE BAHTROOM WITH ASSIST OF 1 STAFF. PATIENT USES URINAL TO VOID ALIA COLORED URINE. FALL AND SAFETY PROTOCOLS IN PLACE. DENIES PAIN AT THIS TIME. CONTINUES TO PROGRESS SLOWLY TOWARDS D/C GOALS. HERE FOR TRAINING WITH P.T. WILL CONTINUE TO MONITER.
[2020-08-24 19:43] VITALS: BP 146/79
--- NOTE | 2020-08-24 23:22 | NUR ---
PT ASSESSMENT COMPLETED AND VSS. MEDS GIVEN ORDERED AND WELL TOLERATED. FALL PRECAUTIONS IN PLACE. ASST WITH REPOSITION FOR COMFORT USING PILLOWS. SAT WNL. PRAFO BOOTS ON AT HS. LUNGS REMAIN DIMINISHED. SLEEPING WELL. WILL CONTINUE TO MONITOR FREQUENTLY.
[2020-08-25 06:07] LABS: HEMATOCRIT 22.2 % (42.0-52.0); HEMOGLOBIN 7.3 gm/dL (14.0-18.0); MCH 29.6 pg (26.0-34.0); MCHC 32.8 g/dL (28.0-37.0); MCV 90.4 fL (80.0-100.0); RBC 2.46 mil/uL (4.50-6.00); RDW 15.8 % (10.5-14.5); WBC 5.6 thou/uL (4.0-11.0)
[2020-08-25 06:25] LABS: CALCIUM 8.3 mg/dL (8.5-10.1); POTASSIUM 4.9 mmol/L (3.5-5.1)
[2020-08-25 07:15] VITALS: BP 127/64
--- NOTE | 2020-08-25 13:03 | NUR ---
ASSUMED CARE AT 0700 TODAY. PT. UP IN CHAIR FOR MEALS. COOPERATIVE WITH MEDS/ASSESSMENT. NO NEW PROBLEMS NOTED OR VOICED. VISITED TODAY. HAVE BEEN TRYING TO GET PT. TO INCREASE HIS FLUID INTAKE BY OFFERING HIM FLUIDS OFTEN. HE SEEMS CALM. HAS NOT VERBALIZED ANY ANXIETY. HE HAS LEFT SIDED WEAKNESS. IS ON ROOM AIR. WILL CONTINUE TO MONITOR.
[2020-08-25 19:29] VITALS: BP 132/81
--- NOTE | 2020-08-25 23:07 | NUR ---
PT ASSESSMENT COMPLETED AND VSS. MEDS GIVEN ORDERED AND WELL TOLERATED. FALL PRECAUTIONS IN PLACE. ASST WITH REPOSITION FOR COMFORT USING PILLOWS. ZGUARD APPLIED TO SACRAL AREA. SAT WNL ON RA. LUNGS REMAIN DEMINISHED. SLEEPING WELL. DENIES NEEDS. WILL CONTINUE TO MONITOR FREQUENTLY.
[2020-08-26 07:15] VITALS: BP 155/94
[2020-08-26 10:02] VITALS: BP 119/70
--- NOTE | 2020-08-26 17:46 | NUR ---
PT'S ATTENDED MUCH OF HIS THERAPIES TODAY. PT UP IN CHAIR AND ASSISTED TO BR CONTINENTLY THROUGHTOUT THE DAY. NOTED ELEVATED BP THIS AM, BUT ONCE HE GOT UP IN CHAIR BP WAS WNL. EDUCATION PROVIDED REGARDING WEIGHT SHIFTS Q 30 MIN WHILE UP IN BEDSIDE CHAIR TP PREVENT SKIN BREAKDOWN. PT REFUSED MIRALAX THIS AM DUE TO LOOSE STOOLS YESTERDAY.
--- NOTE | 2020-08-26 18:20 | NUR ---
PT ARRIVED ON UNIT AND HOME MEDICATIONS HAVE BEEN SENT TO PHARMACY FOR RELABELING. PT IS AMXIOUS AND SOA AT PRESENT TIME, BUT SAT IS 95% ON 3L O2 PER NC.
[2020-08-26 19:24] VITALS: BP 132/68
--- NOTE | 2020-08-27 03:50 | NUR ---
TOLERATED MEDS WITH APPLESAUCE AND SIPS OF WATER WITH NO STRAW. REPOSITIONING SELF IN BED AND USING URINAL FOR SMALL VOIDS. HE NOTES THAT HE HAS STARTED LYMPHEDEMA WRAPS
[2020-08-27 07:15] VITALS: BP 138/85
--- NOTE | 2020-08-27 12:07 | NUR ---
cm visited with and ray,sharmin cont to wear face mask and shield during visit. while she was cutting up his lunch. speech here for visit as well. cm passed on that number for her daughter is not working. wanted to speak with cm outside of room, " you see my kids can not count on them, son works and daughter has young kids, she might call and bring milk if need something from store but they can not help"/.
[2020-08-27 19:39] VITALS: BP 125/59
--- NOTE | 2020-08-27 19:44 | NUR ---
PT TOLERATED THERAPIES AND ATTENDED ALL TRAINING. NO C/O PAIN THROUGHOUT THE DAY. REPORT GIVEN TO ONCOMING RN. ORDERS RECIEVED FOR CHANGE TO LOTION ORDERS TO M-W-F TO COINCIDE WITH LYMPHEDEMA TREATMENTS. THIS HAS BEEN ENTERED
--- NOTE | 2020-08-28 02:35 | NUR ---
BROOKE MEDS WITH APPLESAUCE, SIPS OF WATER. REPOSITIONS SELF A LITTLE AFTER STAFF TURNS HIM TO HIS SIDE WITH PILLOWS AT HIS BACK FOR SUPPORT. USING URINAL FOR VOIDS RANGING BETWEEN 50 AND 200. SINCE LEGS BEGAN GETTING WRAPPED WITH LYMPHEDEMA WRAPS, HE HAS REFUSED HIS PREVALON BOOTS AT NIGHT
[2020-08-28 08:00] VITALS: BP 136/75
--- NOTE | 2020-08-28 09:16 | NUR ---
ASSUMED CARE AT 0700. PATIENT IS ALERT AND ORIENTED X4. PATIENT HAS LEFT SIDED WEAKNESS. LUNGS ARE CLEAR AND DEMINISHED, PATIENT IS ON R.A. ABD IS SOFT WITH BSX4. PATIENT VOIDED ALIA COLORED URINE PER URINAL. UP IN THE W/C FOR MEALS. FALL AND SAFETY PROTOCOLS IN PLACE. DENIES PAIN AT THIS TIME. CONTINUES TO PROGRESS TOWARDS D/C GOALS. WILL CONTINUE TO MONITER.
--- NOTE | 2020-08-28 11:35 | NUR ---
sharmin notified by bedside nurse that in zeb here for visit and is requesting ride home, at [place] and wanted transport van set up. sharmin passed on that would be 80$, "oh going to go with gaye, that saw outside, she said she can bring us home for 40$. daughter cant bring us home tomorrow. wrote down name [facility] transport and number. i will call to set up transportation at 1300 "/ zeb.
[2020-08-28 20:10] VITALS: BP 143/68
--- NOTE | 2020-08-28 23:54 | NUR ---
PT ASSESSMENT COMPLETED AND VSS. MEDS GIVEN ORDERED AND WELL TOLERATED. FALL PRECAUTIONS IN PLACE. PT USING URINAL ON HIS OWN DURING THE NIGHT. VOIDING A MODERATE AMOUNT OF YELLOW URINE. ASST WITH REPOSITION FOR COMFORT. CREAM APPLIED TO SACRAL AREA. SLEEPING WELL. WILL CONTINUE TO MONITOR FREQUENTLY.
[2020-08-29 08:00] VITALS: BP 139/78
[2020-08-29] MEDS ORDERED: IRON325 PO ×2 (08:46→09:30)
[2020-08-29] MEDS ORDERED: PACERONE 200 M200 M1 PO ×2 (08:46→09:30)
[2020-08-29] MEDS ORDERED: FLOMAX0.4 MG PO (09:30)
[2020-08-29] MEDS ORDERED: METOPROLOL SUCC50 MG PO (09:30)
[2020-08-29] MEDS ORDERED: FINASTERIDE5 MG PO (09:30)
[2020-08-29] MEDS ORDERED: COLACE 100 MG100 MG PO (09:30)
[2020-08-29 09:56] VITALS: BP 128/84
--- NOTE | 2020-08-29 13:52 | NUR ---
son called cm back, he stated new he was coming home today. cm went over recommendation from team and he stated " try to help them, sorry took so long to call you back"/son
--- NOTE | 2020-08-29 16:03 | NUR ---
PT A&OX3-4, FORGETFUL, VSS, DENIES PAIN. LYMPHEDEMA NURSE IN. PATIENT REPOSITIONED, MOVING FROM CHAIR TO BED AND WORKING WITH THERAPY. PATIENT DISCHARGED HOME WITH HOME HEALTH. AT BEDSIDE THROUGHOUT DAY. PATIENT ABLE TO MOVE FROM WHEELCHAIR TO CAR WITH WALKER WITH MIN ASSIST. ALL BELONGINGS WITH PATIENT. PATIENTS REQUESTED TO STAY AND EAT LUNCH AND RIDE SCHEDULED TO PICK THEM UP AROUND 1330. NO SIGNS OF DISTRESS. AT DISCHARGE.
--- NOTE | 2020-08-29 16:49 | NUR ---
PT DISCHARGED TODAY TO HOME WITH RESUMPTION OF CARE WITH [facility] FAXED DC ORDERS/SUMMARY RECEIVED CALL FROM INTAKE THAT THEY CANNOT TAKE PT CAUSE HIS AUTH FOR [employer]LL BENEFITS CLERK REFERRAL AUGUST 23 WHILE HE WAS A PT HERE AT HOSPITAL I FAXED A RESUMPTION OF CARE REFERRAL ON AUGUST 14 SPOKE WITH ZACK IN INTAKE SHE SAID THEY WOULD RESUME CARE AT DC 08/29. NOT THEY ARE SAYING THEY DO NOT HAVE THE STAFF TO SEE PT WOULD NOT BE ABLE TO SEE PT TIL AFTER SEPTEMBER 03. SPOKE WITH VIC AT [facility] THEY SHOULD BE IN NETWORK WITH PT'S INSURANCE. THEY WILL NOTIFY PT OF VISITS.
== END 2020-08-29 13:13 | disposition home health service (06) | DRG 56 ==
PROVIDERS: Internal Medicine; Nurse Practitioner; Nurse Practitioner Family; ADMIT Physical Medicine & Rehabilitation; ATTEND Physical Medicine & Rehabilitation
DX: I69.354 Hemiplegia and hemiparesis following cerebral infarction affecting left non-dominant side (principal); I63.9 Cerebral infarction, unspecified; A41.9 Sepsis, unspecified organism; E87.2 Acidosis; N39.0 Urinary tract infection, site not specified; N18.4 Chronic kidney disease, stage 4 (severe); R47.01 Aphasia; R00.1 Bradycardia, unspecified; I48.91 Unspecified atrial fibrillation; I25.10 Atherosclerotic heart disease of native coronary artery without angina pectoris; E78.5 Hyperlipidemia, unspecified; D69.6 Thrombocytopenia, unspecified; D50.9 Iron deficiency anemia, unspecified
CPT/HCPCS: 10112; 62110; 62900; 70005

== ENCOUNTER 2020-09-09 19:31 | Inpatient (IN) | payer OTHER ==
[~2020-09-09] VITALS: Ht 177.8 cm; Wt 74.8 kg
[2020-09-09 19:31] VITALS: BP 186/113
[~2020-09-09 19:31] MED LIST changes: +IRON325 PO
[2020-09-09 20:07] LABS: URINE BILIRUBIN NEGATIVE (Negative); URINE BLOOD TRACE (Negative); URINE CLARITY CLEAR; URINE COLOR YELLOW; URINE GLUCOSE-RANDOM* NEGATIVE (Negative); URINE KETONES NEGATIVE (Negative); URINE LEUKOCYTES-REFLEX NEGATIVE (Negative); URINE NITRITE-REFLEX NEGATIVE (Negative); URINE PROTEIN (DIPSTICK) TRACE (Negative); URINE UROBILINOGEN 0.2 E.U./dl (0.2-1.0)
[2020-09-09 20:09] LABS: ABSOLUTE NEUTROPHILS 5.5 thou/uL (1.4-8.2); BASOPHILS 0.5 % (0.0-2.0); EOSINOPHILS 1.5 % (0.0-3.0); HEMATOCRIT 26.8 % (42.0-52.0); HEMOGLOBIN 8.9 gm/dL (14.0-18.0); LYMPHOCYTES 6.2 % (24.0-44.0); MCHC 33.3 g/dL (28.0-37.0); MCV 93.1 fL (80.0-100.0); PLATELET COUNT 189 thou/uL (150-400); POLYS 77.8 % (36.0-66.0); RBC 2.88 mil/uL (4.50-6.00); RDW 17.8 % (10.5-14.5)
[2020-09-09 20:16] LABS: ANION GAP 11 mmol/L (7-16); BUN 37 mg/dL (7-18); CALCIUM 8.8 mg/dL (8.5-10.1); CHLORIDE 109 mmol/L (98-107); CO2 24 mmol/L (21-32); CREATININE 2.7 mg/dL (0.7-1.3); GLUCOSE 116 mg/dL (74-106); POTASSIUM 4.2 mmol/L (3.5-5.1); SODIUM 144 mmol/L (136-145)
[2020-09-09 20:22] LABS: APTT 27.3 Seconds (24.5-32.8); INR 1.16; PROTIME 12.6 Seconds (9.3-11.4)
[2020-09-09 20:27] LABS: ALBUMIN 2.8 g/dL (3.4-5.0); SGOT 26 U/L (15-37); SGPT 23 U/L (16-63); TOTAL PROTEIN 7.5 g/dL (6.4-8.2); TROPONIN-I <0.06 ng/mL (<0.06)
[2020-09-09 22:56] VITALS: BP 174/100
[2020-09-09 23:04] VITALS: BP 156/92
[2020-09-09 23:55] VITALS: BP 170/90
[2020-09-10 03:54] VITALS: BP 164/89
[2020-09-10 05:01] LABS: HEMATOCRIT 25.1 % (42.0-52.0); HEMOGLOBIN 8.3 gm/dL (14.0-18.0); MCH 30.8 pg (26.0-34.0); MCHC 33.2 g/dL (28.0-37.0); MCV 92.7 fL (80.0-100.0); RBC 2.71 mil/uL (4.50-6.00); RDW 17.3 % (10.5-14.5); WBC 5.9 thou/uL (4.0-11.0)
[2020-09-10 05:16] LABS: ALBUMIN 2.4 g/dL (3.4-5.0); CREATININE 2.6 mg/dL (0.7-1.3); POTASSIUM 4.1 mmol/L (3.5-5.1); TOTAL BILIRUBIN 1.1 mg/dL (0.2-1.0); TOTAL PROTEIN 6.6 g/dL (6.4-8.2)
--- NOTE | 2020-09-10 06:05 | NUR ---
Arrived from ER around 2340. Tolerating room air well with O2 sat in the upper 90's to 100% on RA. He verbalized being short of breath with exertion. Afebrile, cont. on enhanced precaution . MILK BOTTLER and casting house laborer notified of negative COVID result. Bed alarm on and SCD's in place. Lasix one time dose given as ordered.
--- NOTE | 2020-09-10 06:59 | EKG ---
[address] [place] [address] ELECTROCARDIOGRAM REPORT Name: ANNA TORRES Room #: 354-P ADM IN M.R.#: [id number] Admission: 09/09/20 Attend Phys: Laurie Dalton Discharge: Date of : 38 Report #: [id number] [facility] ED Test Date: 2020-09-09 Test Time: 22:27:11 Pat Name: ANNA TORRES Department: Room: Gender: Patient Scheduling Manager[facility] : 1940 Requested By: Alexa Cuba Order Number: [id number] MD: Mark Downs Measurements Intervals [place] Rate: 96 P: 0 ID: [id number] QRS: -8 QRSD: 94 T: 10 QT: 450 QTc: 569 Interpretive Statements Sinus rhythm Atrial premature complex Low voltage, extremity leads Nonspecific T abnormalities, anterior leads Prolonged QT interval Baseline wander in lead(s) V4 Compared to ECG 08/04/2020 09:17:26 Atrial premature complex(es) now present T-wave abnormality now present Sinus tachycardia no longer present Electronically Signed On 09-10-2020 6:59:30 CDT by Mark Downs [email or web address] <ELECTRONICALLY SIGNED> By: Mark Downs MD, FAC 09/10/20 0659 26 26 Mark Downs MD, [facility] /EPI
[2020-09-10 07:35] VITALS: BP 173/102
[2020-09-10 15:37] VITALS: BP 159/93
--- NOTE | 2020-09-10 16:08 | NUR ---
INITIAL ASSESSMENT: Received consult for discharge planning. PAULA reviewed chart and spoke with nursing and attending physician. Pt was admitted from home due to pneumonia. Pt placed in Enhanced Isolation to r/o COVID. Pt's test on 09/09 was negative. Enhanced Isolation precautions discontinued. Pt is currently on IV abx. Pt was recently discharged home from on 08/29 with . PAULA met with pt and at bedside. Introduced role of SW. Pt is alert/orientated. Pt and live in a 3rd floor skilled nursing apt complex. Elevator access is available. Prior to admission, pt was using a cane or walker. Pt's states pt is currently on service with [facility]. Plan is for pt to return home and resume services. Pt's PCP is Dr. Kobe De Santiago. PAULA spoke with Eulalia in intake at [facility], who confirms pt is on service with them for RN, PT, OT and SCREWDOWN OPERATOR services. Will need orders to resume HH upon discharge. PAULA is following to assist as needed with discharge planning.
[2020-09-10 21:15] VITALS: BP 146/84
[2020-09-11 03:33] VITALS: BP 146/79
[2020-09-11 06:00] LABS: HEMATOCRIT 23.7 % (42.0-52.0); HEMOGLOBIN 7.9 gm/dL (14.0-18.0); MCH 30.9 pg (26.0-34.0); MCHC 33.5 g/dL (28.0-37.0); MCV 92.3 fL (80.0-100.0); PLATELET COUNT 144 thou/uL (150-400); RBC 2.56 mil/uL (4.50-6.00); RDW 17.2 % (10.5-14.5); WBC 5.1 thou/uL (4.0-11.0)
[2020-09-11 06:13] LABS: CALCIUM 7.9 mg/dL (8.5-10.1); CREATININE 2.7 mg/dL (0.7-1.3); POTASSIUM 3.4 mmol/L (3.5-5.1)
--- NOTE | 2020-09-11 06:33 | NUR ---
Pt. slept intermittently during the night. Denies any pain. Tolerating room air well , shortness of breath with exertion. Voiding per urinal.
[2020-09-11 08:02] VITALS: BP 173/86
[2020-09-11 11:25] LABS: METAMYELOCYTES 1 %; MYELOCYTES 1 %
[2020-09-11 11:26] LABS: ANISOCYTOSIS 1+; POIKILOCYTOSIS SLIGHT
--- NOTE | 2020-09-11 15:56 | NUR ---
SW reviewed chart and spoke with nursing and attending physician. Pt is progressing towards goals for discharge. Discharge home is anticipated for tomorrow. PAULA met with pt at bedside. Pt's not present during SW visit. SW spoke with pt's via phone to provide update and notify of discharge timeframe. Pt's verbalized understanding and is agreeable with discharge plan. Pt will resume services through [facility]. PAULA spoke with Mirtha in intake at [facility] to notify of pt's discharge. tool and production planner to fax referral for review. SW is following to assist as needed with discharge planning.
[2020-09-11 16:40] VITALS: BP 154/67
--- NOTE | 2020-09-11 16:52 | NUR ---
FAXED RESUMPTION OF CARE REFERRAL TO [facility] RECEIVED CONFIRMATION WILL F/U WITH INTAKE IN THE AM.
--- NOTE | 2020-09-11 18:31 | NUR ---
RN ASSUMEN PT'S CARE AT 0700AM, PT IS A&OX3, PT'S VS ARE STABLE, PT HAS SOB WITH ACTIVITIES, PT IS CONTINUING IV ABX, PT GETS UP TO CHAIR WITH ASSIST.
[2020-09-11 19:40] VITALS: BP 153/89
[2020-09-12 03:18] VITALS: BP 163/89
--- NOTE | 2020-09-12 03:24 | NUR ---
Pt. slept some. Denies any pain. Tolerating room air well. Positive blood culture called to DEGREASING WHEEL OPERATOR. Bed alarm on. SCD's in place. Making some progress towards care plan goals.
[2020-09-12 05:13] LABS: HEMATOCRIT 23.2 % (42.0-52.0); MCH 31.8 pg (26.0-34.0); MCHC 34.4 g/dL (28.0-37.0); MCV 92.2 fL (80.0-100.0); RBC 2.51 mil/uL (4.50-6.00); RDW 17.3 % (10.5-14.5); WBC 5.7 thou/uL (4.0-11.0)
[2020-09-12 05:53] LABS: CALCIUM 8.1 mg/dL (8.5-10.1); CREATININE 2.9 mg/dL (0.7-1.3); POTASSIUM 3.9 mmol/L (3.5-5.1)
--- NOTE | 2020-09-12 15:50 | NUR ---
CM ATTEMPTED TO REACHED OUT TO PATIENTS TO DISCUSS SNF, WAS NOT HOME AND CM LEFT MESSAGE FOR HER TO CALL BACK. CM ALSO ATTEMPTED TO REACH OUT TO PATIENTS SON PITO BUT UNABLE TO REACH.
[2020-09-12 15:56] VITALS: BP 137/72
--- NOTE | 2020-09-12 18:36 | NUR ---
RN ASSUMED PT'S CARE AT 0700AM, PT IS A&OX3,PT IS CONTINUING IV ABX , PT HAS PT/OT TO WORK WITH HIM, PT STILL HAS SOB WITH ACTIVITIES, PT NEEDS 1-2 STAFF TO HELP HIM TO GET UP, PT'S VS ARE STABLE AT THIS TIME,
[2020-09-12 19:23] VITALS: BP 158/77
--- NOTE | 2020-09-13 03:39 | NUR ---
Pt. requested pain med this am for right foot hurting. Tylenol given with some relief. He slept fair during the night. Assisted to reposition on bed for comfort. Tolerating room air well , he does get short of breath with exertion. Voiding per urinal. Making some progress towards care plan goals.
[2020-09-13 04:33] VITALS: BP 154/91
[2020-09-13 05:08] LABS: HEMATOCRIT 22.8 % (42.0-52.0); HEMOGLOBIN 7.7 gm/dL (14.0-18.0); MCH 30.7 pg (26.0-34.0); MCHC 33.6 g/dL (28.0-37.0); MCV 91.5 fL (80.0-100.0); RBC 2.49 mil/uL (4.50-6.00); RDW 16.8 % (10.5-14.5); WBC 6.1 thou/uL (4.0-11.0)
[2020-09-13 05:12] LABS: CALCIUM 8.1 mg/dL (8.5-10.1)
[2020-09-13 07:51] VITALS: BP 152/94
--- NOTE | 2020-09-13 14:44 | NUR ---
PAULA reviewed chart and spoke with nursing and attending physician. Recommendation made for pt to go to a SNF prior to returning home. Pt has been requiring two people to assist with transfers. PAULA met with pt's son, Colin, to discuss discharge plan. Colin states that pt should go to SNF, as pt's is not able to help lift pt or provide much physical assistance. Attending physician met with pt, pt's and son to discuss. Pt's is insisting on taking pt home with . Possible weekend discharge. PAULA met with pt at bedside. No family present. PAULA left in-network SNF list in pt's room for review. PAULA left voice message for both pt's and son to provide update and discuss discharge plan. Received call back from pt's son, who states he will be out of town during the weekend, and he will encourage his mother to consider SNF placement. PAULA emailed in-network SNF list to Colin for review. PAULA spoke with Eulalia in intake at [facility] to provide update and notify of possible weekend discharge. Finalized discharge orders/summary will need to be faxed if pt discharges home. Should pt's agree to SNF placement, referrals will be sent on Wednesday. Insurance auth will be needed. PAULA is following to assist as needed with discharge planning. [facility]--
[2020-09-13 16:56] VITALS: BP 156/88
[2020-09-13 20:14] VITALS: BP 134/81
[2020-09-14 04:17] VITALS: BP 138/86
--- NOTE | 2020-09-14 05:49 | NUR ---
resting quietly tonight. he had some back pain, tylenol effective for pain control. continues on iv antibiotics.
[2020-09-14 07:17] VITALS: BP 138/79
[2020-09-14 15:26] VITALS: BP 143/83
--- NOTE | 2020-09-14 18:27 | NUR ---
assumed care of pt at 0700. pt aox3 with some episodes of confusion. requiring mod assist to chair. uncoordinated. at bedside, voicing many concerns and complaints; coping poorly with pt's increasing dependency. increased O2 demands overnight - now on 2L NC. turned q2h and prn. complains of constipation. patient drinking second half of mag citrate now w/ encouragement from . iv abx infusing per order. slow progress toward poc goals.
[2020-09-14 19:52] VITALS: BP 139/88
--- NOTE | 2020-09-15 03:42 | NUR ---
Patient making slow progress towards outcome goals. Vital signs and rhythm stable. High fall risks, fall precautions in place. Passing gas, No Bm. Aspiration precautions observed.
[2020-09-15 04:02] VITALS: BP 143/89
[2020-09-15 05:16] LABS: CALCIUM 8.5 mg/dL (8.5-10.1); CREATININE 3.1 mg/dL (0.7-1.3); POTASSIUM 4.1 mmol/L (3.5-5.1)
[2020-09-15 07:22] VITALS: BP 146/91
[2020-09-15 15:10] VITALS: BP 138/75
--- NOTE | 2020-09-15 16:56 | NUR ---
ASSUMED PATIENT CARE AT 0700. A/O X4. PATIENT HAD A LARGE BM. GENERLIZED WEAKNESS. 2+ EDEMA BLE. SLOWLY TOWARDS POC GOALS.
[2020-09-15 19:05] VITALS: BP 144/82
[2020-09-16 03:43] VITALS: BP 140/79
--- NOTE | 2020-09-16 05:43 | NUR ---
resting quietly tonight. he has been resting. needs encouraging to allow turns side to side in bed. he does not complain of request a turn. continues on iv antibiotics. careplan reviewed.
[2020-09-16 05:48] LABS: HEMATOCRIT 25.2 % (42.0-52.0); HEMOGLOBIN 8.3 gm/dL (14.0-18.0); MCH 30.2 pg (26.0-34.0); MCHC 32.9 g/dL (28.0-37.0); MCV 91.8 fL (80.0-100.0); RBC 2.74 mil/uL (4.50-6.00); RDW 17.4 % (10.5-14.5); WBC 6.8 thou/uL (4.0-11.0)
[2020-09-16 06:00] LABS: CALCIUM 8.6 mg/dL (8.5-10.1); CREATININE 3.1 mg/dL (0.7-1.3); MAGNESIUM 2.4 mg/dL (1.8-2.4); POTASSIUM 4.3 mmol/L (3.5-5.1)
[2020-09-16 08:01] VITALS: BP 148/91
--- NOTE | 2020-09-16 10:29 | NUR ---
Assess due to length of stay. admit with pneumonia, CHF, anemia. Hx recent CVA. ST following, suspect aspiration pneumonia as pt had not been on diet restrictions which were recommended last mo. ST providing education to pt/. Visit this am, pt voiced he "ate everything", also had consumed 100% of an Ensure supplement. Pt verbalized he had been constipated for 2 weeks and just recently had good bowel movement. Wts at home average in 140s, current wt 165 lb ?. Low nutrition risk with appopriate nutrition interventions in place.
--- NOTE | 2020-09-16 13:19 | NUR ---
SW reviewed chart and spoke with nursing and attending physician. Pt is progressing towards goals for discharge. Consult for N ordered to evaluate pt for admission to inpt acute rehab. SW met with pt and at bedside to discuss discharge recommendation: post-acute placement. Pt and are hopeful for admission to . SW reviewed in-network SNF list with pt and . Pt's asked about returning home with services. SW explained that it is the clinical team's recommendation for continued rehab services and medical mgmt prior to returning home. Pt's verbalized understanding and will be reviewing list if [facility] is not an option. Awaiting input from at this time. SW is following to assist as needed with discharge planning.
[2020-09-16 15:43] VITALS: BP 132/78
--- NOTE | 2020-09-16 16:17 | NUR ---
assumed care of pt at 0700. pt aox3 in no acute distress. up w/ mod assist to chair. using urinal. at bedside. discharge planning ongoing. ruthm.
[2020-09-16 19:09] VITALS: BP 127/72
--- NOTE | 2020-09-16 19:46 | NUR ---
PT RESTING IN BED. WATCHING TV, PRAFO BOOTS ON. BED ALARM ON. PLEASANT CHEERFUL.
[2020-09-17 03:46] VITALS: BP 131/78
[2020-09-17 06:59] VITALS: BP 141/80
[2020-09-17 08:10] VITALS: BP 141/80
[2020-09-17 10:33] LABS: HEMATOCRIT 25.5 % (42.0-52.0); HEMOGLOBIN 8.5 gm/dL (14.0-18.0); MCH 30.6 pg (26.0-34.0); MCHC 33.4 g/dL (28.0-37.0); MCV 91.6 fL (80.0-100.0); RBC 2.78 mil/uL (4.50-6.00); RDW 16.9 % (10.5-14.5); WBC 8.4 thou/uL (4.0-11.0)
[2020-09-17 10:50] LABS: CALCIUM 8.5 mg/dL (8.5-10.1); CREATININE 3.2 mg/dL (0.7-1.3); MAGNESIUM 2.7 mg/dL (1.8-2.4); POTASSIUM 4.4 mmol/L (3.5-5.1)
[2020-09-17] MEDS ORDERED: IPRAT-ALBUT 0.5-3 ML INH (12:33)
[2020-09-17] MEDS ORDERED: LASIX 40 MG TAB40 M1 PO (12:33)
[2020-09-17] MEDS ORDERED: ACETAMINOPHEN325 M1 PO (12:33)
[2020-09-17] MEDS ORDERED: MUCINEX600 MG PO (12:33)
[2020-09-17] MEDS ORDERED: AUGMENTIN 875-1 EACH PO (12:33)
[2020-09-17] MEDS ORDERED: K-DUR 20 MEQ T20 MEQ PO (12:33)
--- NOTE | 2020-09-17 12:53 | NUR ---
DISCHARGE NOTE: SW reviewed chart and spoke with nursing and attending physician. Pt is medically stable for discharge to post-acute care today. PAULA notified by Noa in admissions at [facility], that they are able to accept pt today. Insurance authorization obtained. W/c van transportation scheduled for 1400 per facility's arrangements. SW met with pt and at bedside to provide update. Pt and are agreeable with discharge plan. PAULA explained that visitation times will need to be arranged through [facility]. Pt's became very tearful and upset. PAULA explained that all nursing facilities have visitation restrictions due to COVID. Pt has not been vaccinated. PAULA spoke with pt's son, Colin, via phone to provide update and discuss discharge plan. Pt's son asked about pt being vaccinated while at [facility]. PAULA asked Noa at [facility] to follow up with pt when at the facility. SW faxed finalized discharge orders/summary to the facility. Nursing provided with number to call report. No additional SW needs identified at this time, but is available to assist should needs arise.
--- NOTE | 2020-09-17 14:27 | NUR ---
assumed patient care at 0700. a/o x4. no distress noted. dc to snf now.
--- NOTE | 2020-09-19 10:05 | HC ---
[facility] [place] [address] CONSULTATION Name: ANNA TORRES Room #: 357-P [facility] IN M.Judd.#: [id number] Admission: 09/09/20 Attend Phys: Lakhwinder Vargas MD Discharge: 09/17/20 Date of : 36 Report #: [id number] THIS REPORT FOR: cc: Nando De Santiago K. Steven DO Althoff, Jeffrey R. MD ~ DATE OF SERVICE: 09/16/2020 CHIEF COMPLAINT: Bilateral heel ulcerations. HISTORY OF PRESENT ILLNESS: This is an 80-year-old male patient with a history of community-acquired pneumonia, who is status post recent cerebrovascular accident. He has been admitted for healthcare-associated pneumonia and acute on chronic heart failure and acute on chronic kidney injury is noted to have ulcerations to both heels. He is not able to provide much information. States that his heels are a little bit tender, particularly the right side. PAST MEDICAL HISTORY: Positive for history of cerebrovascular accident with some residual left-sided weakness. He is status post TPA, history of urinary tract infection, dysphagia, community-acquired pneumonia, atrial flutter, chronic diastolic heart failure with an ejection fraction of 55-60% with severe aortic stenosis, history of chronic kidney disease, previous myocardial infarction, hypertension, hypothyroidism, high cholesterol, ischemic cardiomyopathy and multiple falls. He has been taken off Eliquis due to the falls. He has severe aortic stenosis, status post TAVR. SOCIAL HISTORY: Negative for alcohol or tobacco use. MEDICATIONS: Include Synthroid, atorvastatin, Megestrol, Eliquis, Noxafil, enteric-coated aspirin, tamsulosin, metoprolol, amiodarone, ferrous sulfate. ALLERGIES: No known drug allergies. FAMILY HISTORY: Unknown. SOCIAL HISTORY: Negative for alcohol or tobacco use. REVIEW OF SYSTEMS: Very limited. The patient does admit to having pain in his right heel. The patient has no other specific complaints and review of systems is otherwise unobtainable other than which is covered in the history of present illness. PHYSICAL EXAMINATION: VITAL SIGNS: At this time include temperature 36.3, pulse 104, respiratory rate 17, blood pressure 132/78. [facility] [address] [place] [address] CONSULTATION Name: ANNA TORRES Room #: 357-P [facility] IN [facility].#: [id number] Admission: 09/09/20 Attend Phys: Lakhwinder Vargas MD Discharge: 09/17/20 Date of : 38 Report #: [id number] GENERAL: This is a chronically ill-appearing male patient who appears to be in minimal distress. HEENT: Head, normocephalic. NECK: Supple. LUNGS: Diminished. HEART: Irregular. ABDOMEN: Soft. EXTREMITIES: Demonstrate a normal capillary refill, but diminished distal pulses. He has a very small deep tissue injury ulceration to both heels, right greater than left. The areas are mildly tender peeling away a little bit of dry skin reveals intact epithelium. NEUROLOGIC: The patient is awake. His level of orientation is difficult to assess. LABORATORY DATA: Include sodium 142, potassium 4.3, chloride 108, CO2 of 28, BUN 43, creatinine 3.1. White blood cell count 6.8 with a hemoglobin of 8.3, albumin is 2.4. CLINICAL IMPRESSION: 1. Deep tissue injury to both heels, right greater than left. 2. Recent cerebrovascular accident. 3. Healthcare-associated pneumonia. 4. Severe aortic stenosis, status post transcatheter aortic valve replacement. RECOMMENDATIONS: At this point in time, we will recommend PRAFO boots for pressure prophylaxis. We would recommend a low air loss surface with q. 2 hours turning and repositioning for pressure prophylaxis purposes. He will need aggressive nutritional support. I do appreciate being asked to see him in consultation. <ELECTRONICALLY SIGNED> By: Dejuan Cordova MD 09/19/20 1005 1013 1146 Dejuan Cordova MD /nt
== END 2020-09-17 14:41 | DRG 871 ==
LOC: ER 19:31 → 3W 23:22
PROVIDERS: Internal Medicine; Nurse Practitioner Adult Health; Nurse Practitioner Family; ADMIT Hospitalist; ATTEND Hospitalist
DX: A41.9 Sepsis, unspecified organism (principal); I50.33 Acute on chronic diastolic (congestive) heart failure; J18.9 Pneumonia, unspecified organism; G93.41 Metabolic encephalopathy; J96.01 Acute respiratory failure with hypoxia; N17.0 Acute kidney failure with tubular necrosis; I13.0 Hypertensive heart and chronic kidney disease with heart failure and stage 1 through stage 4 chronic kidney disease, or unspecified chronic kidney disease; I48.21 Permanent atrial fibrillation; N18.4 Chronic kidney disease, stage 4 (severe); E44.0 Moderate protein-calorie malnutrition; I69.354 Hemiplegia and hemiparesis following cerebral infarction affecting left non-dominant side; I25.5 Ischemic cardiomyopathy; E03.9 Hypothyroidism, unspecified; E78.00 Pure hypercholesterolemia, unspecified; M10.9 Gout, unspecified; I25.10 Atherosclerotic heart disease of native coronary artery without angina pectoris; S90.32XA Contusion of left foot, initial encounter; Z88.6 Allergy status to analgesic agent; S90.31XA Contusion of right foot, initial encounter; I35.0 Nonrheumatic aortic (valve) stenosis; R53.81 Other malaise; E78.5 Hyperlipidemia, unspecified; D50.9 Iron deficiency anemia, unspecified; Z20.822 Contact with and (suspected) exposure to COVID-19; N40.0 Benign prostatic hyperplasia without lower urinary tract symptoms; D63.1 Anemia in chronic kidney disease; E87.6 Hypokalemia; K59.00 Constipation, unspecified; E55.9 Vitamin D deficiency, unspecified; R13.10 Dysphagia, unspecified; Z66 Do not resuscitate; I25.2 Old myocardial infarction; Z95.5 Presence of coronary angioplasty implant and graft; Z95.2 Presence of prosthetic heart valve; Z79.82 Long term (current) use of aspirin; Z79.899 Other long term (current) drug therapy; Z68.23 Body mass index [BMI] 23.0-23.9, adult; X58.XXXA Exposure to other specified factors, initial encounter; Y93.89 Activity, other specified; Y92.89 Other specified places as the place of occurrence of the external cause; Y99.8 Other external cause status
CPT/HCPCS: 10879

== ENCOUNTER → 2020-10-03 | Outpatient (CLI) | payer OTHER ==
[~2020-10-03] MED LIST changes: +AUGMENTIN 875-1 EACH PO; +IPRAT-ALBUT 0.5-3 ML INH; +K-DUR 20 MEQ T20 MEQ PO; +LASIX 40 MG TAB40 M1 PO; +MUCINEX600 MG PO
== END ==
LOC: SJCVC 13:21
PROVIDERS: ATTEND Internal Medicine
DX: R94.31 Abnormal electrocardiogram [ECG] [EKG] (principal); R00.0 Tachycardia, unspecified; I48.11 Longstanding persistent atrial fibrillation; I11.0 Hypertensive heart disease with heart failure; I50.32 Chronic diastolic (congestive) heart failure; I35.0 Nonrheumatic aortic (valve) stenosis; I25.10 Atherosclerotic heart disease of native coronary artery without angina pectoris; E78.5 Hyperlipidemia, unspecified; D50.9 Iron deficiency anemia, unspecified; Z79.82 Long term (current) use of aspirin; Z79.899 Other long term (current) drug therapy; Z95.2 Presence of prosthetic heart valve

== ENCOUNTER 2020-10-22 10:25 | Inpatient (IN) | payer OTHER ==
[2020-10-22] VITALS (20 sets, daily range): BP systolic 76–146; BP diastolic 36–92
[~2020-10-22] VITALS: Ht 175.3 cm; Wt 71.3 kg
[2020-10-22 16:27] LABS: HEMATOCRIT 20.2 % (42.0-52.0); HEMOGLOBIN 6.5 gm/dL (14.0-18.0); MCH 29.5 pg (26.0-34.0); MCHC 32.2 g/dL (28.0-37.0); MCV 91.5 fL (80.0-100.0); RBC 2.2 mil/uL (4.50-6.00); RDW 16.1 % (10.5-14.5); WBC 6.8 thou/uL (4.0-11.0)
[2020-10-22 16:41] LABS: ALBUMIN 1.9 g/dL (3.4-5.0); CALCIUM 8.4 mg/dL (8.5-10.1); CREATININE 3.1 mg/dL (0.7-1.3); POTASSIUM 4.5 mmol/L (3.5-5.1); TOTAL BILIRUBIN 0.7 mg/dL (0.2-1.0); TOTAL PROTEIN 6.3 g/dL (6.4-8.2)
[2020-10-22 16:43] LABS: APTT 27.6 Seconds (24.5-32.8); INR 1.18; PROTIME 12.8 Seconds (10.5-12.1)
--- NOTE | 2020-10-22 17:15 | NUR ---
ADMIT ICU FROM [facility] HOLDING, HYPOTENSIVE POST PEG PLACEMENT. DR. ALEXANDER NOTIFIED OF DELAY IN GETTING BLOOD DUE TO LACK OF IV. ALSO NOTIFIED CR 3.1. STATES HE WILL BE PUTTING ORDERS IN. WENT HOME DUE TO MEDICAL EMERGENCY IN FAMILY. EMOTIONAL SUPPORT GIVEN.
[2020-10-22 19:39] LABS: CHOLESTEROL 110 mg/dL (<200); HDL CHOLESTEROL 31 mg/dL (>40); LDL CHOLESTEROL 62 mg/dL (<100); TC:HDL 3.5 Ratio (Not establshd); TRIGLYCERIDE 88 mg/dL (<150); VLDL 18 mg/dL (<40)
[2020-10-22 20:01] LABS: FOLIC ACID 19.5 ng/mL (8.6-58.9)
[2020-10-23] VITALS (36 sets, daily range): BP systolic 102–135; BP diastolic 54–88
[2020-10-23 04:54] LABS: HEMOGLOBIN 7.6 gm/dL (14.0-18.0); MCH 29.6 pg (26.0-34.0); MCHC 33.2 g/dL (28.0-37.0); MCV 89.3 fL (80.0-100.0); RBC 2.58 mil/uL (4.50-6.00); RDW 15.9 % (10.5-14.5); WBC 13.9 thou/uL (4.0-11.0)
[2020-10-23 05:04] LABS: CREATININE 3.2 mg/dL (0.7-1.3); POTASSIUM 4.8 mmol/L (3.5-5.1)
[2020-10-23 05:08] LABS: % SATURATION 13 % (20-39); IRON 18 ug/dL (65-175); TIBC 143 ug/dL (250-450)
--- NOTE | 2020-10-23 07:21 | EKG ---
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 <ELECTRONICALLY SIGNED> By: Mark Downs MD, [facility] 10/23/20 0720 1614 1614 Mark Downs MD, [facility] /EPI
--- NOTE | 2020-10-23 09:08 | NUR ---
WOUND CONSULT; THE PATIENT IS VERBAL. THE RIGHT LAT MALLEOLOUS AREA IS BLACK; ESCHAR VS SCAB. THE RIGHT GREAT TOE HAS ERYTHEMA AND IS TENDER TO THE PATIENT. THE RIGHT HEEL IS TENDER WELL ALTHOUGH NO SKIN BREAKDOWN WITH DRY SKIN. THE PATIENT IS USING PRAFO BOOTS FOR OFFLOADING. THE RN NOTICED ERYTHEMA TO THE BUTTOCKS THAT BLANCHES. RECOMMENDATIONS; -TURN Q2H AT A MINIMUM -BARRIER CREAM TO BUTTOCKS BID/PRN -BETADINE TO RIGHT LAT MALLEOLOUS AND RIGHT GREAT TOE. DISCUSSED WITH RN
--- NOTE | 2020-10-23 09:39 | NUR ---
10/22/20 AT 1530-WAS NOTIFIED BY HOLDING RN THAT PTS PRESSURE WAS IN THE 60'S AND FLUID WAS OPEN. WENT INTO ASSESS PT AND TALK TO PTS . IN TO ASSESS PT WELL. BP WAS IN THE 70'S AND PT WAS MOANING. REQUESTED RAT TEAM TO BE NOTIFIED. TEAM SHOWED UP AND PRESSURE BAG PLACED ON FLUIDS, LEVOPHED WAS ORDERED FOR PRESSURE. TOOK TO WAITING ROOM AND EXPLAINED WHAT WAS GOING ON, VERY EMOTIONAL AND EMOTIONAL SUPPORT PROVIDED. KUB,EKG,LABS WERE ALL DONE ON PT. AFTER AND ASSESSED PT, THEY DECIDED TO ADMIT HIM TO ICU. FIGHTER PILOT WAS DOWN TO ASSESS THE PT WELL. UPON DC OF PT FROM CV HOLDING, PTS PRESSURE WAS STABLE IN THE LOW 100'S, PT 96% ON 3L, AND GRANDDAUGHTER AT BS AND INFORMED BY THE DOCTOR WHAT THE PLAN WAS. PT WAS ALERT AND TALKING TO GRANDAUGHTER.
--- NOTE | 2020-10-23 11:38 | NUR ---
ATTEMPTED OT PETRA 1130, RN APPROVES OF ATTEMPT. PT. VERY SOA, RESPIRATONS AND HEART RATE ELEVATE WHEN PT. ATTEMPTING TO TALK WITH THERAPIST. OT DETERMINES PT. NOT APPROPRIATE FOR EVALUATION TODAY. RN STATES DR. LÓPEZ IS CONSULTED. WILL ATTEMPT TOMORROW.
--- NOTE | 2020-10-23 12:53 | NUR ---
Rec Osmolite HN at 20ml/hr and progress by 10ml/hr each shift until goal 55ml/hr reached. 250ml water flush every 6hr.
--- NOTE | 2020-10-23 16:34 | NUR ---
Case opened to follow for dc planning. Pt admitted from [facility] where he had been rehabing under his [employer] ins plan. He was sent over for peg tube placement but was admitted due to medical issues. He is being treated for aspiration pneumonia with left pleural effusion. He is somewhat confused today. here this am to visit but dtr also currently inpt on CCU so going in between units to check on them both. [facility] updated. The pt was being skilled under his [employer] plan;however he will need a new snf auth for readmission. They will need therapy evals and updates faxed in the am to start a new auth request. Therapy evals requested. Pt to transfer out of the ICU later today. Possible feldman for urinary retention. Will follow.
--- NOTE | 2020-10-23 17:23 | NUR ---
nurse called report to RN on .
--- NOTE | 2020-10-23 18:24 | NUR ---
Patient transferred to [facility] for continuation of care. His clothes and belongings were sent. No wheelchair was in room to send. Education provided on feeding pump and varified set up as correct. He had no residual upon check. Nurse called patients with no answer. Nurse then called [facility] to see if she was there, but she was not. This was informed to the next RN for continuation of care. Nurse also informed next RN of bladder scan and order to place a feldman if residuals >300ml. Patient was comfortable on transfer. Nurse talked to physician about IV fluids and it was expressed to continue them until we know if he will tolerate tube feedings and fluid boluses.
--- NOTE | 2020-10-23 19:23 | NUR ---
ASSUMED PT CARE UPON TRANSFER TO UNIT AROUND 1800. PATIENT SET UP IN ROOM, CONNECTED TO TELEMETRY. TUBE FEEDINGS INFUSING AT 20ML/HR. PATIENT INSTRUCTED ON HOW TO USE CALL LIGHT. FALL PRECAUTIONS ARE IN PLACE.
[2020-10-23 20:22] LABS: INR 1.21; PROTIME 13.1 Seconds (10.5-12.1)
[2020-10-24] VITALS (7 sets, daily range): BP systolic 104–161; BP diastolic 69–95
--- NOTE | 2020-10-24 04:24 | NUR ---
ASSESSMENT DOCUMENTED.PT BEEN RESTING IN NO ACUTE DISTRESS.ON O2 THERAPY.NOTED SOB W/EXERTION.NPO.TUBE FEEDINGS TOLERATED.BLADDER SCANNED PER ORDERS,<300ML OF URINE SHOWED ON BLADDER SCAN,WILL BLADDER SCAN AGAIN THIS AM.PT SCHEDULED TO HAVE THORACENTESIS TODAY.
[2020-10-24 05:12] LABS: HEMOGLOBIN 6.6 gm/dL (14.0-18.0); RBC 2.19 mil/uL (4.50-6.00)
[2020-10-24 05:13] LABS: MCH 30.1 pg (26.0-34.0); MCHC 33.8 g/dL (28.0-37.0); RDW 16.6 % (10.5-14.5)
[2020-10-24 05:19] LABS: HEMATOCRIT 19.5 % (42.0-52.0)
[2020-10-24 05:21] LABS: CALCIUM 8.1 mg/dL (8.5-10.1); CREATININE 3.2 mg/dL (0.7-1.3)
[2020-10-24 14:59] LABS: HEMATOCRIT 25.3 % (42.0-52.0); HEMOGLOBIN 8.3 gm/dL (14.0-18.0)
[2020-10-24 17:02] LABS: MCH 29.5 pg (26.0-34.0); MCHC 32.5 g/dL (28.0-37.0); MCV 90.8 fL (80.0-100.0); RBC 2.81 mil/uL (4.50-6.00); RDW 16.1 % (10.5-14.5); WBC 13.4 thou/uL (4.0-11.0)
[2020-10-24 17:03] LABS: BF NUCLEATED CELLS 562 /mm3; BF RBC 35695 /mm3
--- NOTE | 2020-10-24 17:13 | NUR ---
Pt. SOA-RUBBER PRINTING MACHINE OPERATOR activated-see flowsheet
[2020-10-24 17:16] LABS: CLARITY CLOUDY; COLOR RED; TOTAL VOLUME 60 mL
--- NOTE | 2020-10-24 17:29 | NUR ---
PT ARRIVED TO UNIT APPROX 1720. PT ALERT & ORIENTED X 3. PEG TUBE SETTINGS AT 45ML/HR. PT CURRENTLY ON 6L O2 VIA NC. RR 18. PT HAS NO COMPLAINTS OF PAIN. SCDS APPLIED. PT HAS HEEL BOOTS ON BOTH FEET. MADRID CLEAR YELLOW URINE.
[2020-10-24 17:31] LABS: ALBUMIN 2.2 g/dL (3.4-5.0); ANION GAP 13 mmol/L (7-16); BUN 57 mg/dL (7-18); CHLORIDE 113 mmol/L (98-107); CO2 22 mmol/L (21-32); CREATININE 3.1 mg/dL (0.7-1.3); GLUCOSE 161 mg/dL (74-106); POTASSIUM 4.4 mmol/L (3.5-5.1); SGOT 30 U/L (15-37); SGPT 26 U/L (16-63); SODIUM 148 mmol/L (136-145); TOTAL BILIRUBIN 0.8 mg/dL (0.2-1.0); TOTAL PROTEIN 6.4 g/dL (6.4-8.2); TROPONIN-I <0.06 ng/mL (<0.06)
[2020-10-24 19:20] LABS: BF MACROPHAGE 8 %; BF NEUTROPHILS 49 %; SOURCE THORACENTESIS
--- NOTE | 2020-10-24 21:47 | NUR ---
Received awake on bed. On telemetry, no complains and signs of chest pain, crushing sensation and heaviness- pt has been tachycardic- DR Austin informed. On O2 at 3-5lpm via nasal cannula, RR been 30's- Dr Austin informed and aware; for thoracentesis today, will check pt post procedure for improvement. On NPO- mouth swabs provided. On TF Osmolite 45ml, goal rate 55ml- did not progress due to pt's status. On CBG every 6 hrs- taken and recorded; no insulin coverage. With feldman in place- output measured and recorded accoridingly- saba care done. Incontinent of bowel- had a BM today- checked and changed as needed. Falls bundle in place. Pt refusing to be turned- saying makes him have SOA more. With prafo boots in place. Wound care not done, next RN informed re: this. With LE edema- kept elevated. With PEG tube in place; H2O flushes done; no bleeding and drainage noted; dressing C/D/I; no residual noted. Blood transfusion done as per protocol; no reactions noted. Repeat H&H ordered Hb 6.6 to 8.3. Pt brought down to ultrasound for thoracentesis- taken out 1.7L; pt remained tachycardic and tachypnic- SHIP SURVEYOR called, V/S taken; Dr Austin present at bedside; onetime morphine 2mg given as prescribed. Transferred to CCU, RM 350. Pt's Janice informed re: transfer and new room number. Report given to JAYNE Casey. Pt transferred to RM 350 with his peronal belongings(clothes, denture in green container) To continue monitoring patient.
[2020-10-25] VITALS (48 sets, daily range): BP systolic 61–150; BP diastolic 36–85
[2020-10-25 04:17] LABS: HEMATOCRIT 26.1 % (42.0-52.0); HEMOGLOBIN 8.6 gm/dL (14.0-18.0); MCH 29.6 pg (26.0-34.0); MCHC 32.8 g/dL (28.0-37.0); MCV 90.4 fL (80.0-100.0); RBC 2.89 mil/uL (4.50-6.00); RDW 16.3 % (10.5-14.5); WBC 12.7 thou/uL (4.0-11.0)
[2020-10-25 04:30] LABS: CALCIUM 8.3 mg/dL (8.5-10.1); CREATININE 2.9 mg/dL (0.7-1.3); POTASSIUM 4.1 mmol/L (3.5-5.1)
--- NOTE | 2020-10-25 04:52 | NUR ---
Patient not progressingtwards outcome goals, Afib with RVR rate up to 150, attempted to conrol with Cardizem bolus and Metoprolol IV. Amoiodarone dose given early. Rhythm remains in Afib rate 110-120. Reapeat CXR worse than previous. Increase oxygen requirement from 6L to 15 L hi bari to NRB + 6L-sat 98 to 99 %. Reported to Dr. Lang- bina for BIPAP and transfer to ICU.
--- NOTE | 2020-10-25 05:41 | NUR ---
Cardilogy consult to Dr. Claire called with orders. Report given to Santiago Coates Transfer to Room 239.
--- NOTE | 2020-10-25 06:52 | EKG ---
[address] [place] [place] [address] ELECTROCARDIOGRAM REPORT Name: ANNA TORRES Room #: 239-P ADM IN M.R.#: [id number] Admission: 10/22/20 Attend Phys: Woody Austin MD Discharge: Date of : 38 Report #: [id number] [facility] Test Date: 2020-10-24 Test Time: 16:37:56 Pat Name: ANNA TORRES Department: Room: 239 Gender: M Credit Risk Management Director: FSCHWALBE : 1940 Requested By: Woody Austin Order Number: [id number] MD: Mark Downs Measurements Intervals [place] Rate: 144 P: [place]: QRS: -12 QRSD: 93 T: 28 QT: 326 QTc: 505 Interpretive Statements Atrial fibrillation with rapid V-rate Ventricular premature complex Low voltage, extremity leads Borderline T abnormalities, anterior leads Compared to ECG 10/22/2020 16:14:25 Ventricular premature complex(es) now present T-wave abnormality now present Electronically Signed On 10-25-2020 6:52:13 CDT by Mark Downs [email or web address] <ELECTRONICALLY SIGNED> By: Mark Downs MD, [facility] 10/25/20 0652 1637 1637 Mark Downs MD, [facility] /EPI
--- NOTE | 2020-10-25 07:15 | NUR ---
TRANSFER TO ICU. WILL PLACE ON HOLD AND NEED NEW ORDERS WHEN APPROPRIATE FOR OT EVAL. THANK YOU.
--- NOTE | 2020-10-25 07:33 | NUR ---
REPORT RECIVED FROM [facility] RN. PATIENT ARRIVED AT THE UNIT AT APPROX 0630. A/OX3. ON BIPAP. AFIB OTHERWISE VSS. AMIO GIVEN ORDERED. TOLERATING TUBE FEEDS. MADRID IN PLACE. DENIES NEEDS. REPORT GIVEN TO ONCOMING RN.
--- NOTE | 2020-10-25 07:39 | NUR ---
ORDERS FOR EVAL AND TREAT HOWEVER Pt TRANSFERRED TO ICU. WILL PLACE ON HOLD AND AWAIT NEW ORDERS TO INITIATE WHEN APPROPRIATE
--- NOTE | 2020-10-25 08:00 | NUR ---
ASSUMMED CARE OF THIS PATIENT AT 0700 THIS AM. AMIODARONE BOLUS INFUSING AND DRIP STARTED PER ORDER FOR RAPID AFIB. PATIENT IS COOPERATIVE. RESP ARE RAPID AND SL LABORED. WILL CONTINUE TO MONITOR.
--- NOTE | 2020-10-25 08:35 | EKG ---
[address] [address] ELECTROCARDIOGRAM REPORT Name: ANNA TORRES Room #: 239-P ADM IN M.R.#: [id number] Admission: 10/22/20 Attend Phys: Woody Austin MD Discharge: Date of : 36 Report #: [id number] [facility] Test Date: 2020-10-25 Test Time: 06:41:37 Pat Name: ANNA TORRES Department: Room: 239 P Gender: M Physiognomist: SV : 1940 Requested By: Woody Austin Order Number: [id number] : Mark Downs Measurements Intervals [place] Rate: 115 P: [place]: QRS: -17 QRSD: 108 T: -41 QT: 402 QTc: 556 Interpretive Statements Atrial fibrillation Paired ventricular premature complexes Borderline left axis deviation Low voltage, extremity leads Borderline repolarization abnormality Prolonged QT interval Baseline wander in lead(s) I,II,III,aVR,aVL,V2 Compared to ECG 10/24/2020 16:37:56 Prolonged QT interval now present T-wave abnormality no longer present Electronically Signed On 10-25-2020 8:34:56 CDT by Mark Downs [email or web address] <ELECTRONICALLY SIGNED> By: Mark Downs MD, FAC 10/25/20 0834 0641 0641 Mark Downs MD, FAC /EPI
[2020-10-25 08:44] LABS: SOURCE CHEST
[2020-10-25 09:33] LABS: BE(vivo) -2.4 mmol/L (-2 to +3); HCO3 21.5 mmol/L (22.0-26.0); PCO2 33.9 mmHg (35.0-45.0); pH 7.421 (7.360-7.450); sO2 82.4 % (92.0-98.0)
--- NOTE | 2020-10-25 10:15 | NUR ---
ABG'S DRAWN AND FIO2 INCREASED ON BIPAP PER RT. DR LÓPEZ INFORMED OF ABG'S AND ORDERS NOTED. DR ALEXANDER IN TO SPEAK WITH THE PATIENT'S CONCERNING THE RISK AND BENEFITS. REQUEST THAT WE PROCED WITH THE INTUBATION.
--- NOTE | 2020-10-25 10:59 | NUR ---
WOUND CARE F/U; THE RIGHT MALLEOLOUS INJURY IS UNSTAGEABLE, DRY AND NON ODOROUS. THE THE RIGHT GREAT TOE HAS IMPROVED. LESS ERYTHEMA. NO S/S OF INFECTION. CONTINUE CURRENT TREATMENT WITH BETADINE ALUMINIZER. DISCUSSED WITH JAYNE
--- NOTE | 2020-10-25 11:00 | NUR ---
1030 Patient intubated with 7.5 ETT 25cm at the teeth by Dr. Lang with Propofol for sedation without incident. Propofol drip titrated for sedation, OG tube inserted orally without difficulty, asculated for position. Levophed titrated to maintain MAP greater than 65MMHG. Will continue to monitor.
[2020-10-25 11:45] LABS: PCO2 36.6 mmHg (35.0-45.0); PO2 64.6 mmHg (80.0-100.0); pH 7.355 (7.360-7.450); sO2 91.9 % (92.0-98.0)
--- NOTE | 2020-10-25 12:00 | NUR ---
P CXR done for ETT and OG tube placement. Central line placed by IV team without incident and PCXR done for placement. Levophed and Propofol titrated for BP and sedation. will continue to monitor.
--- NOTE | 2020-10-25 12:22 | NUR ---
chart review. discussed during am rounds. he required intubation this am. no anticipated dc over the weekend or wednesday. when ready for dc back to [facility] skilled, will need auth from insurance. will cont following as needed for dc needs. has new peg placed.
[2020-10-25 13:27] LABS: CALCIUM 8.1 mg/dL (8.5-10.1); CREATININE 2.9 mg/dL (0.7-1.3); POTASSIUM 4.4 mmol/L (3.5-5.1)
--- NOTE | 2020-10-25 15:00 | NUR ---
PATIENT RESTING QUIETLY, AT BEDSIDE AND UPDATED ON HER 'S STATUS. FIO2 WEANED DOWN, SEDATION TITRATED FOR COMFORT AND LEVOPHEAD WEANED. URINE OUTPUT IMPROVING SLIGHTLY, LABS NOTED. WILL CONTINUE TO MONITOR.
[2020-10-25 16:07] LABS: BODY FLUID ALBUMIN 1.2 g/dL (Not Estab.); BODY FLUID AMYLASE 29 U/L (()); BODY FLUID GLUCOSE 156 mg/dL (()); BODY FLUID LDH 248 IU/L (()); BODY FLUID PROTEIN 2.8 g/dL (())
--- NOTE | 2020-10-25 19:15 | NUR ---
ASSUMED PATIENT CARE AT 1600. AMIO GTT DECREASED TO 0.5 AT 1600. LEVO TITRATED DOWN TO 5 mcg. VENT SETTINGS WEANED DOWN BY RT. , DEXTER, UPDATED OVER THE PHONE AT 1800. WILL CONTINUE TO MONITOR.
[2020-10-26] VITALS (154 sets, daily range): BP systolic 67–158; BP diastolic 37–83
[2020-10-26 04:45] LABS: BE(vivo) -6.6 mmol/L (-2 to +3); HCO3 18.7 mmol/L (22.0-26.0); PCO2 36.7 mmHg (35.0-45.0); PO2 65.7 mmHg (80.0-100.0); pH 7.326 (7.360-7.450); sO2 91.7 % (92.0-98.0)
[2020-10-26 05:01] LABS: HEMOGLOBIN 7.6 gm/dL (14.0-18.0); MCHC 33.1 g/dL (28.0-37.0); MCV 90.7 fL (80.0-100.0); RBC 2.53 mil/uL (4.50-6.00); RDW 16.2 % (10.5-14.5); WBC 11.3 thou/uL (4.0-11.0)
[2020-10-26 05:12] LABS: CALCIUM 8.2 mg/dL (8.5-10.1); CREATININE 3.1 mg/dL (0.7-1.3); POTASSIUM 4.7 mmol/L (3.5-5.1)
--- NOTE | 2020-10-26 18:39 | NUR ---
PT'S , DEXTER, VISITED FOR A SIGNIFICANT TIME TODAY. UPDATED ON PT CONDITION AND PROGRESS. PT OPENS EYES TO VOICE AND FOLLOWS SIMPLE COMMANDS. URINE OUTPUT REMAINS VERY LOW. TUBE FEEDING STARTED AND PT TOLERATING WELL SO FAR. PT STILL NEEDS LEVOPHED FOR BP SUPPORT AND AMIODARONE FOR HR CONTROL. OVERALL PT NOT PROGRESSING TOWARD GOALS.
[2020-10-27] VITALS (91 sets, daily range): BP systolic 86–135; BP diastolic 53–82
[2020-10-27 04:46] LABS: HEMATOCRIT 23.1 % (42.0-52.0); HEMOGLOBIN 7.3 gm/dL (14.0-18.0); MCH 28.8 pg (26.0-34.0); MCHC 31.8 g/dL (28.0-37.0); MCV 90.6 fL (80.0-100.0); RBC 2.55 mil/uL (4.50-6.00); RDW 16.4 % (10.5-14.5); WBC 11.8 thou/uL (4.0-11.0)
[2020-10-27 05:01] LABS: CALCIUM 8.4 mg/dL (8.5-10.1); CREATININE 3.7 mg/dL (0.7-1.3); POTASSIUM 4.8 mmol/L (3.5-5.1)
--- NOTE | 2020-10-27 07:17 | NUR ---
Shift report received and pt care assumed at 0700. Pt resing and appears comfortable, he makes initial eye contact but does not hold it, he did not nod yes or no to questions he did not squeez hands on request or move extremities on request. IV Amiodarone 0.5 m/min, Propofol 10mc/kg/min, norepinephrine 3mcg/min, fentanyl 100mcg/hr, and zosyn 25mg/hr infusing to R IJ trip lumen and osmolie 1.5 running at 35ml/hr to peg tube. RT in to see pt and stated Peep decreased to 8. pt in sight and restin gand in no distress at this time.
--- NOTE | 2020-10-27 08:48 | NUR ---
PER DR ESPINOZA WE DROPPED THE PEEP TO 8. WE WILL CONTINUE TO MONITOR FOR ADVERSE CHANGES.
--- NOTE | 2020-10-27 15:27 | NUR ---
Dr Austin called and updated that pt had a retching episode that led to vomiting so suction to NG applied and 300ml removed from stomach, no further retching, pt is neg on Covid rapid test, tube feeding remains on hold, and pt has not had a stool yet today and he did get the suppository this am. Orders received, suction to NG tube and continue to old gastric feedings.
--- NOTE | 2020-10-27 19:10 | NUR ---
pt shift report given to oncoming shift and pt care transfered, pt resting in bed, no progress towards goals noted.
[2020-10-28] VITALS (62 sets, daily range): BP systolic 57–128; BP diastolic 33–87
--- NOTE | 2020-10-28 04:39 | NUR ---
INTERMITTENTLY FOLLOWS COMMANDS, VERY MINIMAL EYE CONTACT. OVERBREATHING VENT AT BEGINNING OF SHIFT. COARSE/DIM LUNG SOUNDS. REMAINS IN AFIB, RATES 95-120.
[2020-10-28 04:40] LABS: HEMATOCRIT 22.7 % (42.0-52.0); HEMOGLOBIN 7.5 gm/dL (14.0-18.0); MCH 30.1 pg (26.0-34.0); MCHC 33.2 g/dL (28.0-37.0); MCV 90.7 fL (80.0-100.0); RBC 2.5 mil/uL (4.50-6.00); RDW 16.7 % (10.5-14.5); WBC 9.8 thou/uL (4.0-11.0)
[2020-10-28 05:10] LABS: CALCIUM 8.4 mg/dL (8.5-10.1); CREATININE 4.1 mg/dL (0.7-1.3); POTASSIUM 4.9 mmol/L (3.5-5.1)
--- NOTE | 2020-10-28 12:15 | NUR ---
1000 PT FAMILY SPOKE W/DR. ALEXANDER REGARDING TRANSITION TO PALLIATIVE CARE/EXTUBATION. PALLIATIVELY EXTUBATED 1155.
== END 2020-10-28 15:05 | DRG 208 ==
LOC: SPEC 10:25 → ICU 18:46 → 4W 18:46 → 3W 10-24 17:18 → ICU 10-25 05:52
PROVIDERS: Internal Medicine Pulmonary Disease; ADMIT Radiology Diagnostic Radiology; ATTEND Hospitalist
PROC: 0DH63UZ Insertion of Feeding Device into Stomach, Percutaneous Approach (ICD-10-PCS; principal; 2020-10-22)
PROC: 0W9B3ZZ Drainage of Left Pleural Cavity, Percutaneous Approach (ICD-10-PCS; 2020-10-24)
PROC: 30233N1 Transfusion of Nonautologous Red Blood Cells into Peripheral Vein, Percutaneous Approach (ICD-10-PCS; 2020-10-24)
PROC: 5A0935A Assistance with Respiratory Ventilation, Less than 24 Consecutive Hours, High Flow/Velocity Cannula (ICD-10-PCS; 2020-10-25)
PROC: 02H633Z Insertion of Infusion Device into Right Atrium, Percutaneous Approach (ICD-10-PCS; 2020-10-25)
PROC: 5A09357 Assistance with Respiratory Ventilation, Less than 24 Consecutive Hours, Continuous Positive Airway Pressure (ICD-10-PCS; 2020-10-25)
PROC: 5A1945Z Respiratory Ventilation, 24-96 Consecutive Hours (ICD-10-PCS; 2020-10-25)
PROC: 0BH17EZ Insertion of Endotracheal Airway into Trachea, Via Natural or Artificial Opening (ICD-10-PCS; 2020-10-25)
DX: J96.01 Acute respiratory failure with hypoxia (principal); J18.9 Pneumonia, unspecified organism; E43 Unspecified severe protein-calorie malnutrition; I50.33 Acute on chronic diastolic (congestive) heart failure; I48.20 Chronic atrial fibrillation, unspecified; I69.351 Hemiplegia and hemiparesis following cerebral infarction affecting right dominant side; I48.92 Unspecified atrial flutter; E87.0 Hyperosmolality and hypernatremia; J91.8 Pleural effusion in other conditions classified elsewhere; I13.0 Hypertensive heart and chronic kidney disease with heart failure and stage 1 through stage 4 chronic kidney disease, or unspecified chronic kidney disease; N17.9 Acute kidney failure, unspecified; R13.10 Dysphagia, unspecified; I95.81 Postprocedural hypotension; D50.0 Iron deficiency anemia secondary to blood loss (chronic); Z20.822 Contact with and (suspected) exposure to COVID-19; E03.9 Hypothyroidism, unspecified; M10.9 Gout, unspecified; N18.30 Chronic kidney disease, stage 3 unspecified; I35.0 Nonrheumatic aortic (valve) stenosis; I25.10 Atherosclerotic heart disease of native coronary artery without angina pectoris; R33.9 Retention of urine, unspecified; I25.5 Ischemic cardiomyopathy; R53.81 Other malaise; E78.5 Hyperlipidemia, unspecified; Z51.5 Encounter for palliative care; Z95.5 Presence of coronary angioplasty implant and graft; I25.2 Old myocardial infarction; Z79.01 Long term (current) use of anticoagulants; Z95.2 Presence of prosthetic heart valve
CPT/HCPCS: 10045; 10078; 10879; 85076